=== PATIENT | female | born 1975 | race Caucasian/White ===

== ENCOUNTER → 2018-03-29 15:15 | Outpatient (CLI) | payer MEDICARE, MEDICAID, SELFPAY | PROVIDERS: PCP Internal Medicine; Visit Provider Student in an Organized Health Care Education/Training Program | DX: M17.32 Unilateral post-traumatic osteoarthritis, left knee (principal); M25.562 Pain in left knee; Z96.652 Presence of left artificial knee joint | CPT/HCPCS: 99213 ==

== ENCOUNTER 2018-05-30 08:53 | Outpatient (REF) | payer MEDICARE, MEDICAID, SELFPAY ==
[2018-05-30 20:41] LABS: ALT 26 U/L (12-78); AST 19 U/L (15-37); Albumin 3.6 g/dL (3.4-5.0); Alkaline Phosphatase 125 U/L (46-116); Anion Gap 8.8 mmol/L (3-11); BUN 12 mg/dL (7-18); Bilirubin, Total 0.2 mg/dL (0.2-1.0); CO2 32.2 mmol/L (21.0-32.0); CREATININE 1.03 mg/dL (0.55-1.02); Chloride 98 mmol/L (98-107); Cholesterol 254 mg/dL (50-200); Estimated GFR 58.48 (mL/min/1.73m2); Glucose 105 mg/dL (70-100); HDL Cholesterol 46 mg/dL (40-60); LDL CHOLESTEROL 174 mg/dL (<100); Potassium 4.4 mmol/L (3.5-5.1); Sodium 139 mmol/L (136-145); TSH 2.72 uIU/mL (0.358-3.74); Total Protein 7.2 g/dL (6.4-8.2); Triglyceride 205 mg/dL (30-150)
[2018-05-30 20:53] LABS: Hemoglobin A1C 5.7 % (4.5-6.2)
== END 2018-05-30 09:13 ==
LOC: NCHCN 08:53
PROVIDERS: PCP Internal Medicine; Visit Provider Nurse Practitioner Family
DX: I10 Essential (primary) hypertension (principal); Z79.899 Other long term (current) drug therapy
CPT/HCPCS: 80053; 80061; 83721; 83036; 84443

== ENCOUNTER 2018-09-25 11:55 | Outpatient (REF) | payer MEDICARE, MEDICAID, SELFPAY ==
[2018-09-25 20:34] LABS: ESR 22 MM/HR (0-20)
[2018-09-25 20:51] LABS: Uric Acid 3.7 mg/dL (2.6-6.0)
== END 2018-09-25 12:15 ==
LOC: NCHCN 11:55
PROVIDERS: PCP Internal Medicine; Visit Provider Nurse Practitioner Family
DX: M10.9 Gout, unspecified (principal)
CPT/HCPCS: 85652; 84550

== ENCOUNTER 2019-11-01 13:46 | Outpatient (REF) | payer OTHER, MEDICAID, SELFPAY ==
[2019-11-01 20:04] LABS: ALT 25 U/L (14-59); AST 18 U/L (15-37); Albumin 3.5 g/dL (3.4-5.0); Alkaline Phosphatase 101 U/L (46-116); Anion Gap 9.8 mmol/L (3-11); BUN 10 mg/dL (7-18); Bilirubin, Total 0.2 mg/dL (0.2-1.0); CO2 29.2 mmol/L (21.0-32.0); CREATININE 0.94 mg/dL (0.55-1.02); Calcium 8.5 mg/dL (8.5-10.1); Calculated LDL 110 mg/dL (<100); Chloride 100 mmol/L (98-107); Cholesterol 206 mg/dL (<200); Glucose 119 mg/dL (74-106); HDL Cholesterol 44 mg/dL (40-60); Sodium 139 mmol/L (136-145); TSH (W/Ref FT4) 4.01 uIU/mL (0.36-3.74); Total Protein 6.8 g/dL (6.4-8.2); Triglyceride 263 mg/dL (<150)
[2019-11-01 22:13] LABS: FREE T4 0.82 ng/dL (0.76-1.46)
== END 2019-11-01 14:06 ==
LOC: NCHCN 13:46
PROVIDERS: PCP Internal Medicine; Visit Provider Nurse Practitioner Family
DX: I10 Essential (primary) hypertension (principal); E78.5 Hyperlipidemia, unspecified; R63.5 Abnormal weight gain
CPT/HCPCS: 80053; 80061; 84439; 84443

== ENCOUNTER 2020-12-09 15:14 | Outpatient (REF) | payer OTHER, MEDICAID, SELFPAY ==
[2020-12-10 15:49] LABS: COVID-19 RT-PCR UVMMC Result Negative (Negative)
== END 2020-12-09 15:15 | disposition home or self-care (01) ==
LOC: NCHCN 15:14
PROVIDERS: PCP Internal Medicine; Visit Provider Internal Medicine
DX: Z20.822 Contact with and (suspected) exposure to COVID-19 (principal)
CPT/HCPCS: U0003

== ENCOUNTER 2021-08-24 13:30 | Outpatient (REF) | payer MEDICARE, MEDICAID, SELFPAY ==
[2021-08-24 20:21] LABS: ALT 34 U/L (14-59); AST 20 U/L (15-37); Albumin 3.7 g/dL (3.4-5.0); Alkaline Phosphatase 118 U/L (46-116); Anion Gap 11.2 mmol/L (3-11); BUN 16 mg/dL (7-18); Bilirubin, Total 0.2 mg/dL (0.2-1.0); CO2 25.8 mmol/L (21.0-32.0); CREATININE 0.8 mg/dL (0.55-1.02); Calcium 8.9 mg/dL (8.5-10.1); Calculated LDL 111 mg/dL (<100); Chloride 102 mmol/L (98-107); Cholesterol 211 mg/dL (<200); Glucose 99 mg/dL (74-106); HDL Cholesterol 64 mg/dL (40-60); Potassium 4.4 mmol/L (3.5-5.1); Sodium 139 mmol/L (136-145); Triglyceride 182 mg/dL (<150)
[2021-08-26 18:24] LABS: COVID-19 RT-PCR UVMMC Result Negative (Negative)
== END 2021-08-24 13:31 | disposition home or self-care (01) ==
LOC: NCHCN 13:30
PROVIDERS: Nurse Practitioner Family; PCP Internal Medicine; Visit Provider Pediatrics
DX: E78.5 Hyperlipidemia, unspecified (principal); I10 Essential (primary) hypertension; Z20.822 Contact with and (suspected) exposure to COVID-19
CPT/HCPCS: 80053; 80061; U0003

== ENCOUNTER 2023-10-13 14:36 | Outpatient (CLI) | payer MEDICARE, SELFPAY ==
--- NOTE | 2023-10-13 09:06 | DI.RAD_ITS ---
Exam(s) XR KNEE RT 2V AP,LAT EXAM: XR KNEE RT 2V AP,LAT CLINICAL HISTORY: R knee pain. TECHNIQUE: 2D digital imaging was performed of the right knee. Two views obtained. AP and PA views were obtained. COMPARISON: CR KNEES BILAT MERCHANT VIEW from 02/15/2018 CR XR KNEE COMPLETE MIN 4V RT from 07/09/2023 FINDINGS: This is a limited examination shown. There are mild degenerative changes seen in the right knee with osteophytes seen both medially and laterally. There is mild narrowing of the medial femoral tibial joint space. IMPRESSION: Limited examination which again shows mild arthropathy. DATA REPOSITORY: RADIATION DOSE DELIVERED:
== END 2023-10-13 14:37 | disposition home or self-care (01) ==
LOC: DIORS 14:40
PROVIDERS: PCP Internal Medicine; Referring Provider Internal Medicine
DX: M25.561 Pain in right knee (principal)
CPT/HCPCS: 73560; J1040

== ENCOUNTER → 2023-11-18 00:55 | Outpatient (CLI) | payer MEDICARE, SELFPAY ==
--- NOTE | 2023-11-18 11:20 | DI.MRI_ITS ---
Exam(s) MR LOWER JOINT RT WO EXAM: MR LOWER JOINT RT WO CLINICAL HISTORY: worsening rt knee pain, oa rt knee,m17.11. TECHNIQUE: Multiplanar multisequence MRI was performed. COMPARISON: CR XR KNEE COMPLETE MIN 4V RT from 07/09/2023 CR XR KNEE RT 2V AP,LAT from 10/13/2023 FINDINGS: BONES: There is no fracture or contusion pattern. Patellar enthesophytes. Spurring at the articula r aspect of the patella and femoral condyles. Degenerative tiny cyst near the tibial spines. Small degenerative subchondral cyst in the anterior aspect of the medial tibial plateau. JOINTS: A large joint effusion is present. Articular cartilage: Patellofemoral joint: Cartilage thinning extending down to bone of the mid to lower patella. Periar ticular spurring. Medial femoral tibial joint: Cartilage thinning extending down to bone overlying the central portion of the medial femoral condyle. Lateral femoral tibial joint: Focal area of cartilage thinning and irregularity at the posterior aspect of the lateral femoral condyle. TENDONS: Extensor mechanism: Unremarkable. Medial retinaculum: Unremarkable. Lateral retinaculum: Severe outward bowing related to large joint effusion. No definite tear. Popliteus: Unremarkable. MUSCLES: Unremarkable. MENISCI: The medial meniscus is diminutive and peripherally displaced, consistent with degenerative changes. The lateral meniscus is peripherally displaced. The anterior horn is not well seen. Findings could represent severe degeneration SOFT TISSUES: Anterolateral edema. LIGAMENTS: Anterior Cruciate: Unremarkable. Posterior Cruciate: Unremarkable. Medial Collateral:Unremarkable. Lateral Collateral: Unremarkable. IMPRESSION: Large joint effusion. Degenerative changes with chondromalacia throughout. Degenerative changes of the menisci. The anter ior horn of the lateral meniscus is not visible, likely severely degenerated. DATA REPOSITORY:
== END ==
PROVIDERS: PCP Internal Medicine; Visit Provider Student in an Organized Health Care Education/Training Program
DX: M17.11 Unilateral primary osteoarthritis, right knee (principal); M25.561 Pain in right knee
CPT/HCPCS: 73721

== ENCOUNTER → 2023-11-21 08:56 | Outpatient (BNVA) | payer MEDICARE, SELFPAY | PROVIDERS: PCP Internal Medicine; Referring Provider Internal Medicine; Visit Provider Student in an Organized Health Care Education/Training Program | DX: M17.11 Unilateral primary osteoarthritis, right knee (principal) | CPT/HCPCS: 99214 ==

== ENCOUNTER 2023-12-30 01:44 | Outpatient (CLI) | payer MEDICARE, SELFPAY ==
[2023-12-30 11:26] LABS: HCT 33.5 % (36.0-46.0); HGB 10.9 g/dL (11.2-15.7); MCH 29.9 pg (27.0-33.0); MCHC 32.5 % (32.0-36.0); MCV 92 fL (80-95); MPV 8.5 fL (8.0-11.0); Platelet Count 335 10^3/uL (130-400); RBC 3.65 10^6/uL (3.93-5.22); RDW 12.6 % (11.7-14.6); RDW-SD 42.3 fL; WBC 9.69 10^3/uL (4.4-10.8)
[2023-12-30 11:56] LABS: Anion Gap 9.2 mmol/L (3-11); BUN 17 mg/dL (7-18); CO2 29.8 mmol/L (21.0-32.0); Calcium 8.9 mg/dL (8.5-10.1); Chloride 102 mmol/L (98-107); Estimated GFR 69.49 (mL/min/1.73m2); Glucose 128 mg/dL (74-106); Potassium 3.6 mmol/L (3.5-5.1); Sodium 141 mmol/L (136-145)
== END 2023-12-30 01:45 | disposition home or self-care (01) ==
LOC: LBO 01:45
PROVIDERS: PCP Internal Medicine; Visit Provider Student in an Organized Health Care Education/Training Program
DX: M17.11 Unilateral primary osteoarthritis, right knee (principal); Z01.812 Encounter for preprocedural laboratory examination
CPT/HCPCS: 36415; 80048; 85027

== ENCOUNTER 2023-12-30 12:04 | Outpatient (CLI) | payer MEDICARE, SELFPAY ==
--- NOTE | 2023-12-30 10:15 | DI.RAD_ITS ---
Exam(s) XR STANDING ALIGNMENT EXAM: XR STANDING ALIGNMENT CLINICAL HISTORY: PRE OP R TKA. TECHNIQUE: 2D digital imaging was performed. Four images were obtained. COMPARISON: CR KNEES BILAT MERCHANT VIEW from 02/15/2018 CR LEFT KNEE 3 VIEW COMPLETE from 02/15/2018 CR XR KNEE RT 2V AP,LAT from 10/13/2023 FINDINGS: BONES: The hips are well maintained. There are stable findings of a left total knee replacement. De generative changes are seen in the right knee characterized by joint space narrowing medially. There osteophytes in the lateral femoral tibial joint. The ankles are well maintained.There is no signifi cant leg length discrepancy. SOFT TISSUE: Normal. IMPRESSION: Degenerative changes seen in the right knee. DATA REPOSITORY: RADIATION DOSE DELIVERED:
== END 2023-12-30 12:05 | disposition home or self-care (01) ==
LOC: DIORS 12:04
PROVIDERS: PCP Internal Medicine; Referring Provider Internal Medicine; Visit Provider Physician Assistant
DX: Z01.818 Encounter for other preprocedural examination (principal); M17.11 Unilateral primary osteoarthritis, right knee
CPT/HCPCS: 77073

== ENCOUNTER 2024-01-11 12:24 | Observation (INO) | payer SELFPAY ==
[2024-01-11] VITALS (18 sets, daily range): BP systolic 103–148; BP diastolic 53–83; PULSE 73–92; RESP 12–20; TEMP 36.3–37; O2SAT 91–99; BMI 34.9
[2024-01-11] MEDS: Gabapentin 300 MG CAP PO (10:40)
[2024-01-11] MEDS: Acetaminophen 500 MG TAB 1000 MG PO ×2 (10:41→19:30)
[2024-01-11] MEDS: Lactated Ringers 1,000 ML 80 ML IV (10:54)
--- NOTE | 2024-01-11 11:50 | W.ANESPRE ---
General Info Date of Service Date Performed: 01/11/24 Height: 5 ft 9 in Weight: 107.2 kg Body Mass Index (BMI): 34.9 Surgical Procedure: Operation Date: 01/11/24 13:40 Proposed Procedure Side Surgeon p Knee Total Arthroplasty, Cementless CR Right Zac Duvall MD Meds Allergies and Home Medications Allergies Allergy/AdvReac Type Severity Reaction Status Date / Time aspirin Allergy Severe Other (See Verified 01/11/24 10:37 Comment) acetaminophen Allergy Unknown Other (See Verified 01/11/24 10:37 [From Darvocet-N] Comment) propoxyphene Allergy Unknown Other (See Verified 01/11/24 10:37 [From Darvocet-N] Comment) Thiazides Allergy Unknown Other (See Verified 01/11/24 10:37 Comment) NSAIDS (Non-Steroidal Allergy Anaphylaxsi Verified 01/11/24 10:37 Anti-Inflamma s Sulfa (Sulfonamide AdvReac childhood Verified 01/11/24 10:37 Antibiotics) Home Medication Medication Instructions Recorded albuterol sulfate 90 mcg/actuation 2 puff inhalation Q6H PRN 10/22/21 aerosol inhaler (ProAir HFA) gabapentin 300 mg capsule 300 mg PO DAILY 10/05/23 alprazolam 0.5 mg tablet 0.5 mg PO ONCE PRN anxiety #2 tabs 11/18/23 duloxetine 30 mg capsule,delayed 90 mg PO DAILY 11/21/23 release (Cymbalta) cyclobenzaprine 10 mg tablet 10 mg PO HS PRN muscle spasm #30 12/30/23 tabs methadone 40 mg soluble tablet 71 mg PO DAILY 12/30/23 methylphenidate HCl 20 mg tablet 20 mg PO TID 12/30/23 (Ritalin) prazosin 1 mg capsule 1 mg PO BID 12/30/23 cyclobenzaprine 5 mg tablet 5 mg PO QHS PRN muscle spasm #30 01/07/24 tabs Current Visit Medications: Current Medications Generic Name Dose Route Start Last Admin Trade Name Freq PRN Reason Stop Dose Admin Acetaminophen 1,000 mg 01/11/24 06:00 01/11/24 10:41 Acetaminophen 500 Mg Tab PO 01/11/24 23:59 1,000 mg PREOP RAMESH Administration Gabapentin 300 mg 01/11/24 06:00 01/11/24 10:40 Gabapentin 300 Mg Cap PO 01/11/24 23:59 300 mg PREOP RAMESH Administration Ringer's Solution 1,000 mls @ 80 mls/hr 01/11/24 06:00 01/11/24 10:54 IV 01/11/24 23:59 80 mls/hr INFUSION RAMESH Administration Tranexamic Acid/Sodium Chloride 1,000 mg in 100 mls @ 600 mls/hr 01/11/24 06:00 IVPB 01/11/24 23:59 PREOP RAMESH Cefazolin Sodium/Dextrose 2 gm in 50 mls @ 100 mls/hr 01/11/24 06:00 Ancef Duplex IVPB 02/09/24 23:59 PREOP RAMESH IV Miscellaneous Supplies 1 each 01/11/24 06:00 Iv Access IV 01/11/24 23:59 DIRECTED RAMESH Sodium Chloride 0 ml 01/11/24 06:00 Normal Saline Flush 10 Ml Syr IV 01/11/24 23:59 PRN PRN Sodium Chloride 0 ml 01/11/24 06:00 Normal Saline 10 Ml Vial IJ 01/11/24 23:59 DIRECTED PRN Sterile Water 0 ml 01/11/24 06:00 Water,Injection,Sterile 10 Ml Vial IJ 01/11/24 23:59 DIRECTED PRN PFSH Active Problems Active Problems: Problem Status Onset Code Osteoarthritis of right knee M17.11 Hypertension I10 GERD (gastroesophageal reflux disease) K21.9 Medical History Medical History Attention deficit disorder Heart murmur, systolic Pt. states she's been told she has one in the doctors office but never required any tx for it Xerosis of skin Gout Hyperlipidemia Sinusitis Exposure to COVID-19 virus Tear of meniscus of left knee (04/06/17) Post-traumatic osteoarthritis of left knee (04/06/17) Migraine Depression Substance abuse Tobacco dependence Surgical History Surgical History History of total left knee replacement (TKR) (09/27/17) History of hysterectomy History of cholecystectomy Tobacco Smoking/Tobacco Use Status: Current every day Tobacco Type: cigarettes Alcohol Alcohol Intake: never Substance Use Substance use: Current Sobriety Substance use type: does not use 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 Vital Signs and Lab Results Vital Signs Most Recent Vital Signs in EMR: Most Recent Vital Signs Temp Pulse Resp BP Pulse Ox 36.4 C L 86 16 148/83 H 97 01/11/24 10:24 01/11/24 10:24 01/11/24 10:24 01/11/24 10:01/11/24 10:24 Lab Results Blood Type / Crossmatch: No Data to Display Complete Blood Count: White Blood Count 9.69 10^3/uL (4.4-10.8) 12/30/23 11:18 Red Blood Count 3.65 10^6/uL (3.93-5.22) L 12/30/23 11:18 Hemoglobin 10.9 g/dL (11.2-15.7) L 12/30/23 11:18 Hematocrit 33.5 % (36.0-46.0) L 12/30/23 11:18 Platelet Count 335 10^3/uL (130-400) 12/30/23 11:18 Complete Metabolic Panel: Sodium 141 mmol/L (136-145) 12/30/23 11:18 Potassium 3.6 mmol/L (3.5-5.1) 12/30/23 11:18 Chloride 102 mmol/L (98-107) 12/30/23 11:18 Carbon Dioxide 29.8 mmol/L (21.0-32.0) 12/30/23 11:18 BUN 17 mg/dL (7-18) 12/30/23 11:18 Creatinine 1.0 mg/dL (0.55-1.02) 12/30/23 11:18 Est GFR (CKD-EPI 2020) 69.49 (mL/min/1.73m2) 12/30/23 11:18 Calcium 8.9 mg/dL (8.5-10.1) 12/30/23 11:18 Glucose 128 mg/dL (74-106) H 12/30/23 11:18 Liver Function Panel: No Data to Display Coagulation Panel: No Data to Display Cardiac Panel: No Data to Display Arterial Blood Gas: No Data to Display Venous Blood Gas: No Data to Display Pancreas Panel: No Data to Display Thyroid Panel: No Data to Display Infectious Disease: No Data to Display Blood Cultures: No Data to Display Toxicology Panel: No Data to Display Panel: No Data to Display Anesthesia Assessment and Plan Anesthesia History Personal History: No History of Anesthesia Complications Family History: No Family History of Anesthesia Complications Exercise Tolerance Exercise Tolerance: Metabolic Equivalents>4 Cardiac & Pulmonary Exam Cardiac Exam: Heart Murmur Present (Patient reports benign) Pulmonary Exam: Clear Bilateral Breath Sounds Implantable Cardiac Device Does patient have a Pacemaker or an ICD?: No Airway Exam Known Difficult Airway: No Mallampati Class: 2 Mouth Opening: Normal (> 3cm) Thyromental Distance: Greater than 3 cm Neck Range of Motion: Full ROM Neck Circumference: Normal Teeth Condition: Edentulous ASA Classification ASA Score: ASA 3 Emergency Case?: No NPO Status NPO Status: NPO Clears >2 hours, Solids >8 hours Status Status: Negative HCG Anesthesia Plan Resuscitation Status: Full Code Anesthesia Technique: Spinal Anesthesia Airway Planned: Natural Airway Pain Management: Surgeon and patient request nerve block Monitors Used: Standard Monitors
--- NOTE | 2024-01-11 13:28 | W.ANESNERVE ---
Nerve Block Single Injection Procedure Date and Time Date Performed: 01/11/24 Procedure Start: 12:49 Location Where Procedure Performed Procedure Location: Day Surgery Unit Reason Performed: Postoperative Analgesia Requesting Provider: Zac Duvall Timeout Performed Timeout Performed: Yes Monitoring Used ECG, Blood Pressure, SpO2 and See EMR for corresponding vital signs Sterility Sterility: Hand Hygiene, Surgical Cap, Surgical Mask and Sterile Gloves Sedation Given During Procedure Sedation Given (Indicate Dose Given): Versed IV Dose:: 2mg Patient Mental Status Patient Mental Status: Sedate with meaningful communication Nerve Block 1st Nerve Block: Laterality: Right Block Type: Adductor Canal Ultrasound Image Saved?: Yes Needle / Catheter Used: 100mm SonoPlex II Local Anesthetic Bolus (Indicate Dose Given): Lidocaine used for local infiltration of skin, Injected in 3-5ml increments after negative blood aspiration, Bupivacaine 0.25% Dose:: 10mL and Exparel Dose:: 10mL Additives (Indicate Dose Given): None Ultrasound: Sterile probe cover and gel used Nerve Stimulator: Supplement to Ultrasound use and No twitch or parasthesia noted < 0.5 mA Paresthesia: None Procedure Tolerated: No Complications Procedure Outcome: Successful Performed By: Kamila Morton
[2024-01-11] MEDS: ceFAZolin 2 GM/50 ML BAG IVPB (13:53)
[2024-01-11] MEDS: TRANEXAMIC ACID/SOD. CHL. 1,000 MG/100 ML BAG 600 MG IVPB (14:02)
[2024-01-11] MEDS: fentaNYL 100 MCG/2 ML VIAL IVP ×2 (16:13→16:19)
--- NOTE | 2024-01-11 16:13 | W.PM.OP ---
Date of service: 01/11/24 Time of Service: 16:13 Operative Note Operative Note DATE OF PROCEDURE: 01/11/24 PRE-OP DIAGNOSIS: Right Knee Osteoarthritis POST-OP DIAGNOSIS: same PROCEDURE: Right Total Knee Replacement SURGEON: Zac Duvall GRAIN OILSEED OR PASTURE FARM WORKER: Landon Mcallister ANESTHESIA TYPE: Spinal Refer to Anesthesia Record ESTIMATED BLOOD LOSS: 200 PATHOLOGY: none sent TOURNIQUET TIME: 0 COMPLICATIONS: None Patient was transported to: PACU Patient's condition: stable Implants: 1. Depuy Attune Cementless Cruciate Retaining Femoral Component, Size 8 2. Depuy Attune Cementless Fixed Bearing Tibial Component, Size 6 3. Depuy Attune 8x6 CR/FB Poly 4. Depuy Attune Patellar Component, Size 35 Indications: I have seen Rand in clinic for symptoms of knee arthritis, confirmed with radiographic findings. She has exhausted nonoperative methods and was having significant limitations in daily function and desired better function and less pain. I discussed the technical details of a knee replacement. I explained the risks of the procedure to include, but not limited to, bleeding, infection, pain, stiffness, fracture, damage to nerves and vessels, damage to muscles and tendons, loosening, need for repeat procedure, blood clot and cardiopulmonary demise. Despite these risks, Rand elected to proceed. Findings: There was significant signs of arthritis throughout the knee along with significant inflammatory change and synovitis. Procedure Description: Rand was greeted in the preoperative holding area where the correct side was identified and marked. The consent was reviewed with the patient and signed. The history and physical was updated. All questions were answered. Preoperative medications were administered: Acetaminophen 1000mg, Celebrex 400mg, and Gabapentin 300mg. An adductor canal block was then administered by the anesthesia team in the D[facility]. Rand was taken back to the operating room. A spinal anesthestic was then administered. The patient was placed into the supine position on the operating room table. A nonsterile tourniquet was placed high onto the leg but only used for cementing. Posts were placed for positioning during the procedure. All bony prominences were well padded. Prophylactic antibiotics in the form of Cefazolin were administered. 1g of Tranxemic Acid was given intravenously within 30 minutes of incision. The right leg was then prepped with Chloraprep and draped in a standard fashion with impervious stockinette. A second prep with Chloraprep was performed prior to application of Iodine impregnated skin protection. A timeout to confirm correct identity, side and site, procedure, allergies, anesthesia, and medical concerns was performed. With the knee in some flexion, a midline incision was made overlying the knee. Full thickness skin flaps were raised once the extensor mechanism was encountered. These were raised medially and laterally. Any bleeding was controlled with electrocautery. Once the extensor mechanism was fully exposed, a medial parapatellar arthrotomy was performed in a flexed position. All bleeding from the arthrotomy and the geniculate arteries was coagulated. A medial subperiosteal peel was performed with electrocautery to the midcoronal plane. The fat pad was removed while keeping the patellar tendon protected. The anterior distal femur synovium was removed for later visualization. The ACL and PCL were resected and the anterior horn of the lateral meniscus was transected. The knee was then flexed with the patella everted. Large osteophytes from the tibia were removed. Large osteophytes from the femur were removed. Using a step drill, and based on preoperative templating, the femoral canal was entered. This was done with a step drill without any difficulty. The intramedullary distal femoral cut guide was inserted, set to a 5 degree valgus cut and 9mm cut thickness. The distal femoral cut guide was then held in position and pinned. With the soft tissues protected, the distal cut was performed. This was passed over a few times to ensure a planar cut. I then turned attention to the tibia. The extramedullary guide was placed onto the leg. The distal aspect was slid medial to adjust for position of center of ankle and stay in line with shaft of the tibia. Approximately 3-5 degrees of posterior slope was kept in the proximal cutting guide. The center of the guide was aligned with the PCL. The stylus was used to assess cut thickness. The latral side, most involved side, was set for a 6mm cut, corresponding to 8mm medially. This was then held in position and pinned into place with 2 additional pins and a cross pin for stability. The medial and lateral collateral ligaments were protected and the cut was performed. With this completed, it was assessed and noted to be of appropriate dimensions. The guide was removed. A spacer block was inserted and the knee was brought into extension. The 6mm spacer block provided full extension, without hyperextension and with stability of both the medial and lateral collateral ligaments was assessed. The pins from the femur and the tibia were then removed. The distal femur was then sized. The anterior stylus was placed onto the lateral ridge of the anterior femur. This indicated a size 8 femur. The external rotation of the guide was adjusted to 3 degrees to match the epicondylar axis, perpendicular to Mayes?s line. The 4-in-1 cutting guide was the placed. The posterior medial femur cut was evaluated and appeared of good thickness. The spacer block was inserted underneath the cutting guide and this was moved posteriorly 1.5mm. It was trialed again and stability was confirmed in 90 degrees of flexion. An pollo wing was used to confirm appropriate position of the anterior cut to avoid notching. This cutting guide was ensured to be flush on the cut surface and then pinned into place with headed pins. While protecting the soft tissues, quad tendon, and collateral ligaments, the anterior and posterior cuts were performed with a saw. The central two pins were removed and the posterior and anterior chamfers were cut next. The notch-cutting guide was placed. This was pinned to lateralize the femoral component as much as possible while keeping it flush on the cut surface. This was then pinned into position. A reciprocating saw was used to make the notch cut. A rasp smoothed the cut surfaces. The medial and lateral menisci were removed. A trial femoral component was then inserted, impacted down to the cut surfaces, and the lug holes were drilled. A provisional trial tibial component was placed and the knee was brought through range of motion. There was noted to be excellent extension and flexion. There was no significant instability. The patella was tracking without thumbs. A size 6mm polyethylene component provided the best range of motion and stability with less than 2mm gapping with medial and lateral stress and full extension without significant hyperextension. The tibial cut surface was fully exposed. The tibia was then sized as a 6. The trial was pinned into place, relatively externally rotated. The tibia was prepared with a reamer and a keel punch and lug holes. The knee was then brought into extension and the patella was measured as 21mm. Using the patellar clamp and cut guide, this was resected to a flat surface with at least 13mm of thickness remaining. The size 35 patella fit the best. This was oriented and then clamped into position. The lugs were drilled. The trial components were removed. The final components were opened on the back table. The periosteal and capsular tissues, especially posteriorly, around the knee were then systematically injected with a periarticular cocktail consisting of 246mg of Ropivacaine, 0.5mg of Epinephrine, 0.08mg of Clonidine, and 30mg of Ketorolac, diluted to 100cc. On the back table, with the implants opened, the cement was mixed. One batch of high viscosity cement was prepared with vacuum assistance. After the cement was ready a small amount was placed on the cut surface of the patella and the patellar button was clamped into position and held. While the cement was hardening, the cementless knee components were placed. Starting with the tibial component, the tibia was subluxed anteriorly and the lug holes of the component were lined up. The tibia was then impacted with an impactor and mallet until the tibial component was in contact with the tibia. The final polyethylene component was inserted. Then, the femoral component was inserted. The lug holes were aligned and the component was impacted into position. The knee was irrigated with Surgiphor Betadine solution. This was allowed to sit in the knee for 3 minutes and then it was irrigated out with saline. After the cement had finally cured, approximately 15min, the clamp was removed from the patella and the knee was taken through range of motion. The patella was tracking with a no-thumbs technique. The capsule was then reapproximated with a No. 1 Vicryl at multiple locations. The capsule was finally closed with a No. 2 Stratafix, barbed suture. The second dosing of 1g TXA was started. Deep tissues were then reapproximated with 0 Vicryl and 2-0 Vicryl. The skin was closed with a running 3-0 Monocryl in a subcuticular fashion. This was reinforced with skin glue. A Mepilex silver dressing was applied along with a [id number] JACKIE wrap. A CryoCuff was applied. Rand was transferred to the hospital bed without difficulty an suffering no apparent complication. Rand has a good prognosis. Physical therapy will start today and without restrictions, weight-bearing as tolerated. Aspirin 81mg BID will be used for DVT prophylaxis.
--- NOTE | 2024-01-11 16:51 | W.ANESPOSTOP ---
Postoperative Evaluation Date, Time and Location Date Performed: 01/11/24 Time Performed: 16:55 Patient Location: Med/Surg Vital Signs Most Recent Imported Vital Signs: Most Recent Vital Signs Temp Pulse Resp BP Pulse Ox 36.7 C 78 19 127/58 L 98 01/11/24 16:25 01/11/24 16:25 01/11/24 16:25 01/11/24 16:25 01/11/24 16:25 Pain Score Most Recent Pain Score: Most Recent Pain Score Pain Level 8 01/11/24 16:25 Assessment Mental Status: Awake (Alert & Oriented to Patient Baseline) Airway and Respiratory Function: Patent airway with normal (patient baseline) respiratory exam Cardiovascular Function: Hemodynamically Stable Hydration Status: Adequately Hydrated Nausea & Vomiting: No Nausea or Vomiting Pain: Pain is Moderate or Severe Postoperative Pain Management: Pain being addressed with medication and Ongoing pain, patient will be managed as an inpatient Peripheral Nerve Block: Regional nerve block not resolved at time of post operative discharge
[2024-01-11] MEDS: HYDROmorphone 2 MG/ML SYR 1 MG IVP ×2 (17:16→23:56)
[2024-01-11] MEDS: ceFAZolin 1 GM/50 ML BAG IVPB ×2 (17:17→21:45)
[2024-01-11] MEDS: Normal Saline Flush 10 ML SYR ×2 (18:13)
[2024-01-11] MEDS: oxyCODONE 5 MG TAB PO ×2 (19:29→22:42)
[2024-01-11] MEDS: Tranexamic Acid 650 MG TAB 1300 MG PO (19:31)
[2024-01-11] MEDS: Methylphenidate 10 MG TAB 20 MG PO (19:32)
[2024-01-11] MEDS: Prazosin 1 MG CAP PO (19:32)
[2024-01-11] MEDS: Aspirin E.C. 81 MG TABEC PO (19:32)
[2024-01-11] MEDS: Docusate Sodium 100 MG CAP PO (19:32)
[2024-01-11] MEDS: Cyclobenzaprine 10 MG TAB PO (19:32)
[2024-01-11] MEDS: Nicotine 14 MG/24 HR PATCH TD (21:38)
[2024-01-11] MEDS: diazePAM 5 MG TAB PO (22:43)
[2024-01-12] VITALS (7 sets, daily range): BP systolic 95–160; BP diastolic 66–82; PULSE 72–87; RESP 16–18; TEMP 36–37.1; O2SAT 94–99
[2024-01-12] MEDS: oxyCODONE 5 MG TAB PO ×4 (02:02→17:03)
[2024-01-12] MEDS: diazePAM 5 MG TAB PO ×2 (02:04→09:50)
[2024-01-12] MEDS: ceFAZolin 1 GM/50 ML BAG IVPB (05:46)
[2024-01-12] MEDS: Dexamethasone 4 MG TAB PO ×2 (07:42→09:42)
[2024-01-12] MEDS: Acetaminophen 500 MG TAB 1000 MG PO ×3 (07:42→20:51)
[2024-01-12] MEDS: DULoxetine 30 MG CAP 90 MG PO (07:43)
[2024-01-12] MEDS: Prazosin 1 MG CAP PO ×2 (07:43→20:51)
[2024-01-12] MEDS: Pantoprazole 40 MG TABCR PO (07:43)
[2024-01-12] MEDS: Methylphenidate 10 MG TAB 20 MG PO ×3 (07:44→20:51)
[2024-01-12] MEDS: Aspirin E.C. 81 MG TABEC PO ×2 (07:45→20:51)
[2024-01-12] MEDS: Gabapentin 300 MG CAP PO (07:45)
[2024-01-12] MEDS: Nicotine 14 MG/24 HR PATCH TD (07:46)
[2024-01-12] MEDS: Normal Saline Flush 10 ML SYR IV (07:56)
[2024-01-12] MEDS: HYDROmorphone 2 MG/ML SYR 1 MG IVP (07:56)
[2024-01-12] MEDS: Methadone Liquid 10 MG/ML 71 MG PO (08:08)
--- NOTE | 2024-01-12 08:33 | PT.INIE ---
PT Notes Visit Reasons: OA R Knee Physical Therapy Inpatient Initial Evaluation Date: 01/12/2024 Referring Doctor: YONNY Miller PT Orders: PT CONSULT: S/P Ortho Surgery Precautions: Fall. Standard. WBAT on the R LE with AD. Patient Profile/Admitting Diagnosis: Rand is a 48-year-old female with degenerative joint disease of the right knee and status post right total knee arthroplasty on postoperative day 0. PMHX: Medical History Attention deficit disorder Heart murmur, systolic Xerosis of skin Gout Hyperlipidemia Sinusitis Exposure to COVID-19 virus Tear of meniscus of left knee (04/06/17) Post-traumatic osteoarthritis of left knee (04/06/17) Migraine Depression Substance abuse Tobacco dependence Surgical History History of total left knee replacement (TKR) (09/27/17) History of hysterectomy History of cholecystectomy Social History/Home Situation: Lives with nirmal? in a private home with 4 steps to enter without rails. Ambulatory with use of bilateral axillary crutches indoors and outdoors. Was able to work with restrictions. Equipment Owned/DME: Bilateral axillary crutches Subjective: Rand is unable to finsh breakfast due to pain. She is tearful and complained of throbbing pain in her right thigh and the back of her knee. Nurse Frantz already medicated patient for pain earlier and is aware of patient's pain level. reported that she does not feel safe going home today. felt a little better after some manual therapy by PT. Agreeable to walking and moving about with encouragement. Added that since July she has been using her bilateral axillary crutches for all her walking tasks to off-load the R knee. Fell about 5 times since then due to R knee instability. Objective: General Observation: Seated on chair in pain and tearful. Cryocuff on floor and moved up on table for optimal effect. JACKIE wraps to R LE. Mental Status: Alert and oriented as to person, place, time, and purpose. Able to pay attention, focus, and respond appropriately. Pain: 8-9/10 in R thigh and knee Vital Signs: Closely monitored by nursing staff ROM: Right Lower Extremity: Hip flexion allows up to 90 degrees. Hip abduction WFL. Knee flexion -30 to 90 degrees. Knee extension -30 degrees ankle dorsiflexion WFL. Ankle plantarflexion WFL. Left Lower Extremity: Hip flexion WFL. Hip abduction WFL. Knee flexion 10 degrees to 100. Knee extension -10 degrees ankle dorsiflexion WFL. Ankle plantarflexion WFL. Strength: Right Lower Extremity: Hip flexors 4/5. Hip abductors 4/5. Knee flexors 3-/5. Knee extensors 3-/5. Ankle dorsiflexors 4/5. Ankle plantarflexors 4/5. Left Lower Extremity:Hip flexors 4-/5. Hip abductors 4-/5. Knee flexors 3-/5. Knee extensors 3-/5. Ankle dorsiflexors 4-/5. Ankle plantarflexors 4-/5. Sensation: Intact as to pain and light pressure in bilateral lower extremities Bed Mobility/Transfers: Minimal cueing provided for use of B hands as needed for support, movement sequence, AD management, and posture to reduce fall risk and minimize pain report Sit to stand with contact-guard assist with FWW Stand to sit with contact-guard assist with FWW Bed to toilet seat with contact-guard assist with FWW Toilet seat to bedside recliner with contact-guard assist with FWW Gait: Facilitated safe and correct performance of level surface ambulation covering a distance of 75 feet +75 feet +75 feet using front wheeled walker with antalgic gait observed requiring minimal verbal cueing for appropriate weight distribution onto the legs and assistive device as well as safe limb advancement and posture to reduce fall risk and minimize pain report. Patient verbalized feeling considerably stable on the right knee at each step unlike before. Step to gait pattern. Contact-guard assist provided. Balance: Static Sitting: Normal Dynamic Sitting: Good Static Standing: Fair Dynamic Standing: Fair Special Tests: Mobility Limitations Standardized Measure [facility] AM-PAC 6 clicks Basic Mobility Inpatient Short Form: Raw Score: 18 CMS Score: 47% deficit Informed Consent/Education: Patient was instructed in purpose of PT consult and plan of care. Agreeable to proceed with established PT POC to achieve personal goals. Trained patient with correct performance of exercises below to maximize motor control, joint flexibility, soft tissue extensibility of the R knee musculature: Access Code: [email or web address] URL: [email or web address] Date: 01/12/2024 Prepared by: Anastasiia Holder Exercises - Supine Quad Set - 1 x daily - 7 x weekly - 1 sets - 10 reps - 5 hold - Supine Heel Slide - 1 x daily - 7 x weekly - 1 sets - 10 reps - 5 hold - Supine Ankle Pumps - 1 x daily - 7 x weekly - 1 sets - 10 reps - 5 hold - Small Range Straight Leg Raise - 1 x daily - 7 x weekly - 1 sets - 10 reps - 5 hold DEFERRED for this session - Seated March - 1 x daily - 7 x weekly - 1 sets - 10 reps - 5 hold DEFERRED for this session Assessment: Pain level limiting ability of patient to safely participte in functional mobility training. Nurse Bonny has premedicated patient earlier before PT session and has helped with minimizing pain report during session. Patient verbalized not feeling safe to go home today. Patient presents with clinical signs and symptoms consistent with current/admitting diagnoses that have resulted to mobility limitations, gait instability, generalized weakness, and overall ADL decline as demonstrated by the following impairment level findings: 1. Decreased strength to R hip and knee major muscle groups 2. Impaired sitting/standing balance 3. Impaired activity tolerance 4. Limitation of joint range of motion in R knee 5. Pain in R thigh and back of leg at 8-9/10 Impairments are contributing to the following functional limitations: 1. Decline in bed mobility skills 2. Decline in transfer skills 3. Difficulty with ambulation without assistive device 4. Increased completion time for mobility ADL performance 5. Increased risk for falls 6. Difficulty with managing steps alone safely Patient is assessed as a 98637 moderate complexity based on the following: History: 48-year-old female with past medical history as indicated above Examination: Demonstrable impairment in strength, balance, and mobility level with underlying impairments and functional limitations as exhibited above as well as deficit score of 47% utilizing the [facility] Mobility Inpatient Short Form Presentation: Evolving Decision Makin moderate complexity Goals: Goals X1 week 1. Supine-Sit independent 2. Sit-Supine independent 3. Sit-Stand independent 4. Stand-Sit independent with FWW 5. Bed-Chair independent with FWW 6. Chair-Bed independent with FWW 7. Independent gait on level surface with use of FWW for at least 300 feet without report of pain nor dyspnea 8. Independent stair negotiation while holding onto no rails for at least 4 steps without report of pain nor dyspnea 9. Independent with home exercise program 10. Good static and dynamic standing balance/tolerance Plan of Care/Treatment Plan: 1-2x/day, 7 days/week x 1 week. Plan of care has been reviewed with the FRONT LOADER RESIDENTIAL DRIVER providing the service under Physical Therapy direction. Initiate Physical Therapy intervention for pain management as needed, strengthening, bed mobility, transfers, gait, stairs, balance training, and use of assistive device. DISCHARGE RECOMMENDATIONS: Home with no services [X] Home with services. Patient will benefit from home health PT services in order to progress mobility level using least restrictive assistive ambulatory device, assess home safety, identify additional equipment needs, and establish a functional maintenance program that will increase ability of patient to remain at home. [] Home with outpatient PT [] [] SNF for continued rehabilitation [] [] Senior Care Care [] [] SNF versus LTC based on ability to participate and progress [] TREATMENT CODE/TIME: 19424 x 20 minutes for 1 unit, 30443 x 15 minutes for 1 unit, 43730 x 11 minutes (8:33-9:19). Thank you for the opportunity to participate in the care of this patient. Anastasiia Holder PT, DPT, CLT [facility] [place], [place]
--- NOTE | 2024-01-12 10:56 | PDOC.CMIN ---
Date of service: 01/12/24 Time of Service: 10:56 Care Management Initial Assmt Initial Assessment Reason for Hospitalization: OA Right knee, RTK Functional Status/Living Situation Patient Presentation: Rand has an apartment in the basement of her son and JUANITO's home in [place]. Also living in the home is her fiance, 5 grandchildren and 9 dogs. Rand is awake and sitting in a reclining chair , legs elevated when CM met with her. She is forthcoming with information and pleasant in interaction. Per pt, every time she is about to fall asleep her knee pain flairs up so she is very tired. She is hoping to get her pain level before discharging home. Town of Residence: [place] Resides with: Child (lives with her son, JUANITO and their 5 kids) and Spouse (Cameron?) Significant Other/Family: [facility] Employment Status: Employed ([employer] in [place]) Instrumental Activities of Daily Living (ADLs): Independent Medications Medication Management: No Issues/Barriers identified Physical Functioning/Mobility Assistive Device: Uses crutches Advance Directives Advance Directives: Do you have an Advance Directive: N 03/17/17 15:35 AD On File at [facility]: N 03/25/14 15:26 Date Asked 01/11/24 01/10/24 08:41 AD Date Reviewed COLST On File at [facility] COLST Date Scanned Code Status Resuscitation Status Full Code Portal Pt does not currently have a portal and education provided: No Insurance Coverage/Financial Issues Insurance: AARP/Un. Health MCR replacement ACO Member: No Financial Issues: Medicare. Medicaid Care Team Visit Care Team Role Provider Type Nghia Ayala Primary Care Provider NON-[facility] STAFF PHYSICIAN [facility] Other Providers OTHER Zac Duvall MD Admit Provider [facility] STAFF PHYSICIAN Attending Provider Discharge Potential Discharge Needs: PT Evaluation (Recommends HH PT (O/E [facility])), Surgical F/U Appt (Dr. Duvall 01/26/24) and Other ([facility] in [place]t: [facility]. Will need last dose letter. ) Anticipated Barriers to Discharge: None Identified Patient/Family Education Needs: Review discharge instructions, discuss Ask Me Three Transportation: Private vehicle (Fianc?) Plan: Rand will discharge home when ready per . She will follow up with Dr. Duvall, her PCP and plan of care as prescribed. PFSH All Active Problems Osteoarthritis of right knee (Acute) DEPO MEDROL: 10/13/2023 Hypertension (Chronic) GERD (gastroesophageal reflux disease) (Chronic) Medical History Attention deficit disorder Heart murmur, systolic Pt. states she's been told she has one in the doctors office but never required any tx for it Xerosis of skin Gout Hyperlipidemia Sinusitis Exposure to COVID-19 virus Tear of meniscus of left knee (04/06/17) Post-traumatic osteoarthritis of left knee (04/06/17) Migraine Depression Substance abuse Tobacco dependence Surgical History History of total left knee replacement (TKR) (09/27/17) History of hysterectomy History of cholecystectomy Social History Smoking/Tobacco Use Status: Current every day Tobacco Type: cigarettes Smoking risk assessment performed?: Yes Alcohol Intake: never Drug use: Current Sobriety Substance use type: does not use 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 Housing: apartment Do you feel safe at home: Yes Do you feel safe in your relationship?: Yes SDOH(Care Management) Screening Will the Patient Participate in the Screening?: Yes Do you worry about having a steady place to live?: no Problems where you live: no known problems In the past 12 months, have you had to go without electric, gas, oil or water in your home?: no Have you or anyone in your house had to go without enough food to eat?: no Has lack of transportation kept you from medical appointments or from doing things needed for daily living?: yes Has anyone in your support network made you feel unsafe for any reason?: no Health Related Social Needs Health related social needs: transportation insecurity(Z59.82)
--- NOTE | 2024-01-12 11:41 | PHA.REVIEW2 ---
Pharmacy Admission Review Admission Clinical Review Admission Pharmacy Review: aspirin Allergy (Severe, Verified 01/11/24 10:37) Other (See Comment) acetaminophen [From Darvocet-N] Allergy (Unknown, Verified 01/11/24 10:37) Other (See Comment) propoxyphene [From Darvocet-N] Allergy (Unknown, Verified 01/11/24 10:37) Other (See Comment) Thiazides Allergy (Unknown, Verified 01/11/24 10:37) Other (See Comment) NSAIDS (Non-Steroidal Anti-Inflamma Allergy (Verified 01/11/24 10:37) Anaphylaxsis Sulfa (Sulfonamide Antibiotics) Adverse Reaction (Verified 01/11/24 10:37) childhood Resuscitation Status Full Code Height 5 ft 9 in Weight 107.2 kg Comments Comments/Follow Ups: POD #1 Pharmacy Admission Review Renal Dosing Medications needing adjustments: Reviewed (CrCl 89.68 ml/min) List of meds needing interventions: Current medications are okay Anticoagulation DVT Prophylaxis: Reviewed (SCDs/TEDs) Opiate Usage Evaluate Pain Scale/Pains Meds: Reviewed (Daily methadone, PRN hydromorphone and PRN oxycodone) Scheduled Bowel Reg ordered if on Opiates?: No (PRN Miralax and docusate) Relevant Labs Electrolytes, C-Reactive P, ESR: Reviewed (No new labs for today) Cardiac Review BP, HR, EF%: Reviewed (HR and BP WNL) QTc Review QTc: Reviewed (No EKG on file) IV to PO Switch IV Medications: Reviewed (Hydromorphone) Home Meds Home Med List reviewed: Reviewed Relevent Home Meds Not ordered & why?: Albuterol (PRN) and alprazolam (prescription for 2 tablets to take prior to a study) Current Meds Current Medication Order Review: Intervened Comments: Confirmed methadone dose with [facility] in [place]. Takes 71mg daily, last dosed 01/01 and was given 13 take home doses Added IV order set Comments Comments/Follow Ups: POD #1
--- NOTE | 2024-01-12 11:42 | CHAPLAIN ---
Rand had a knee replacement yesterday. She said the pain is keeping her awake and she didn't get much sleep last night. She is hoping to put on cartoons and nap this morning. Rand said she's a little worried about going home where there are children, dogs and people in and out and she's hoping she stay in one spot and not be jostled around.
[2024-01-12] MEDS: Normal Saline Flush 10 ML SYR (12:07)
--- NOTE | 2024-01-12 14:10 | IN_ITS ---
PT Notes Visit Reasons: OA R Knee Physical Therapy Inpatient Treatment Note Date: 01/12/2024 Precautions: Fall. Standard. WBAT on the R LE with AD. Subjective: Feeling a bit better and more agreeable to complete this afternoon's session. Happy and felt more secure to have had follow up visit from orthopod. Verbalized feeling much better after PT session this morning that allowed her time to doze off. Added that at home she usually gets her methadone at 5 AM daily so she is able to manage her day without too much difficulty. Objective: General Observation: HOME PERFORMANCE CONSULTANT was helping patient get into bathroom when PT came and volunteered to take over for the afternoon session. JACKIE wraps removed by orthopod around lunch time per patient report. Mental Status: Alert and oriented as to person, place, time, and purpose. Able to pay attention, focus, and respond appropriately. Pain: 4-5/10 in R thigh and knee Vital Signs: Closely monitored by nursing staff Bed Mobility/Transfers: Minimal cueing provided for use of B hands as needed for support, movement sequence, AD management, and posture to reduce fall risk and minimize pain report Sit to stand with stand by assist with FWW Stand to sit with stand by assist with FWW Bed to toilet seat with stand by assist with FWW Toilet seat to bedside recliner with stand by assist with FWW Gait: Facilitated safe and correct performance of level surface ambulation covering a distance of 250 feet using front wheeled walker, antalgic gait still apparent. Minimal verbal cueing for appropriate weight distribution onto the legs and assistive device as well as safe limb advancement and posture to reduce fall risk and minimize pain report. Step to gait pattern. Contact-guard assist provided. No LOB. No SOB. dneied headache. chest pain, andlightheadedness. Balance: Static Sitting: Normal Dynamic Sitting: Good Static Standing: Fair Dynamic Standing: Fair Assessment: Pain level decreased compared to this morning. Patient gaining confidence with walking performance as pain tolerance is improving. Required less cueing. Efficiency of movement improved with readjustment of FWW to a lower height (one notch lower). Will continue to require services to progress mobility level safely. Plan of Care/Treatment Plan: 1-2x/day, 7 days/week x 1 week. Plan of care has been reviewed with the CHICKEN VACCINATOR providing the service under Physical Therapy direction. Continue with Physical Therapy intervention for pain management as needed, strengthening, bed mobility, transfers, gait, stairs, balance training, and use of assistive device. DISCHARGE RECOMMENDATIONS: [] Home with no services [X] Home with services. Patient will benefit from home health PT services in order to progress mobility level using least restrictive assistive ambulatory device, assess home safety, identify additional equipment needs, and establish a functional maintenance program that will increase ability of patient to remain at home. [] Home with outpatient PT [] [] SNF for continued rehabilitation [] [] Detention Care [] [] SNF versus LTC based on ability to participate and progress [] TREATMENT CODE/TIME: 77640 x 23 minutes for 1 unit 913:45-14:07)
[2024-01-12] MEDS: Methocarbamol 750 MG TAB PO ×2 (16:19→20:51)
[2024-01-12] MEDS: Docusate Sodium 100 MG CAP PO ×2 (17:04→20:53)
--- NOTE | 2024-01-12 20:17 | W.PM.PROGNOT ---
Date of Service Date of service: 01/12/24 Time of Service: 12:50 Assessment and Plan Assessment and plan (1) Osteoarthritis of right knee: Status: Acute Assessment and plan: Continue weightbearing as tolerated. Work with physical therapy. She does have a large hemarthrosis which is quite tense. However, it seems to have settled down. It is compressible. She is able to move the knee and ambulate therefore I would not do anything. However, if things worsen that I could consider aspiration of the arthrosis but I would prefer not to stick a needle in the fresh knee. This will be reabsorbed with time. I will also add methocarbamol to her regimen to help out with spasms. We have Valium for anxiety and pain as well as the oxycodone. We will continue to hold with this regimen throughout the day today and reevaluate tomorrow and less there is acute worsening of the pain in her right knee from the effusion. (2) Substance abuse: Assessment and plan: On methadone for substance use disorder. This makes pain management challenging. We do have a multimodal regimen. She has been followed with continuous pulse oximetry and has been able to tolerate all the medications without difficulty. Subjective Subjective Interval history since last seen: Rand reports having significant pain last night and this morning. She describes his pain as being different than what the oxycodone seems to treat. She feels that some of the sharper pain is taking care of by the oxycodone with there is been an ongoing intense pain which seems to happen intermittently which is somewhat spastic in nature. He describes as being around the anterior thigh, anterior knee, posterior calf and posterior knee. She has been able to mobilize with nursing and with physical therapy. She still feels that she is able to move the knee. She denies fevers or chills. She has reported minimal sleep. She has had no difficulty with the combination of medications. She has tolerated the aspirin without difficulty. Exam Narrative Exam Narrative: Sitting up in the chair. No acute distress. Appears uncomfortable. Alert and orient x 3. Evaluation of the right knee shows a clean dry and intact dressing. The Refugio wrap is removed. There is a large and tense effusion about the right knee. It is still compressible although causes pain. No drainage on the dressing. No change to the skin. She is able to actively move the knee from 30 to 80 degrees. She is able to actively extend as well. Sensation intact to light touch over the deep and superficial peroneal nerve and tibial nerve. Objective Last Vital Signs Temp 37.1 C 01/12/24 15:39 Pulse 76 01/12/24 15:39 Resp 16 01/12/24 15:39 BP 123/74 01/12/24 15:39 Pulse Ox 94 01/12/24 15:39 Time Spent with Patient Time Spent with Patient: 25-34 minutes Time was spent: preparing to see the patient(eg.review tests), obtaining and/or reviewing separately otained hiistory, ordering medications,tests, procedures, referring, communicating with other health rn transitional care, indepentently interpreting results and counseling the patient
[2024-01-12] MEDS: Cyclobenzaprine 10 MG TAB PO (20:53)
[2024-01-13] VITALS (7 sets, daily range): BP systolic 113–141; BP diastolic 77–89; PULSE 78–92; RESP 14–18; TEMP 36.2–37; O2SAT 94–98
[2024-01-13] MEDS: oxyCODONE 5 MG TAB PO ×4 (01:52→19:16)
[2024-01-13] MEDS: Dexamethasone 4 MG TAB 8 MG PO (07:50)
[2024-01-13] MEDS: Prazosin 1 MG CAP PO ×2 (07:51→19:15)
[2024-01-13] MEDS: Acetaminophen 500 MG TAB 1000 MG PO ×3 (07:52→19:16)
[2024-01-13] MEDS: Methocarbamol 750 MG TAB PO ×4 (07:53→19:15)
[2024-01-13] MEDS: Gabapentin 300 MG CAP PO (07:53)
[2024-01-13] MEDS: DULoxetine 30 MG CAP 90 MG PO (07:54)
[2024-01-13] MEDS: Methylphenidate 10 MG TAB 20 MG PO ×3 (07:55→17:15)
[2024-01-13] MEDS: Pantoprazole 40 MG TABCR PO (07:56)
[2024-01-13] MEDS: Aspirin E.C. 81 MG TABEC PO ×2 (07:56→19:17)
[2024-01-13] MEDS: Nicotine 14 MG/24 HR PATCH TD (07:57)
[2024-01-13] MEDS: Methadone Liquid 10 MG/ML 71 MG PO (08:55)
--- NOTE | 2024-01-13 09:04 | W.PM.PROGNOT ---
Date of Service Date of service: 01/13/24 Time of Service: 09:04 Assessment and Plan Assessment and plan (1) Osteoarthritis of right knee: Status: Acute Assessment and plan: Rand continues to make appropriate progress. She has been able to ambulate and move the knee although with notable pain. We are treating her pain with multiple modalities. I continue to monitor her for any respiratory depression for which she has not had any. However, if this is concerning given the amount of medications she is on, however she is tolerating them well. She was should continue with weightbearing as tolerated with assistive device. Continue with PT and with ambulation with nursing. She is tolerating the aspirin for DVT prophylaxis. She has had some bleeding into the right knee but this seems to be stabilized. At this point I would like to observe for another 24 hours just to make sure that the bleeding in the knee is controlled and her medication regimen is still tolerated and controlling her pain. The increase in pain in the morning is likely related to nighttime motions as well as lack of medication treatment during the night. (2) Substance abuse: Assessment and plan: History of substance abuse disorder, currently on methadone. This is complicating her postoperative pain control as expected. However, she seems to be stabilized on the current regimen. We will continue to monitor her respiratory depression before discharging to home. (3) Tobacco dependence: Assessment and plan: Nicotine supplementation. Discussed smoking cessation. Subjective Subjective Interval history since last seen: Rand reports to be doing well. Unfortunately she is having worsening pain once again this morning. She felt that yesterday afternoon evening went very well. She is able to ambulate with nursing and physical therapy and felt that the swelling had come down about the knee. Unfortunately, through the night, while she was able to sleep a little bit, she has had significant increase in pain this morning. She has taken her medications and hopefully this will help alleviate that. She denies any other acute changes. No chest pain or shortness of breath. No fevers or chills. No cough. She has been watched closely due to the multiple medications that she is currently taking to control her pain symptoms. Exam Narrative Exam Narrative: Sitting up in the chair. No acute distress. Alert and x 3. Evaluation of the right knee shows an effusion about the right knee although slightly less tense than yesterday. The dressing is clean dry and intact. Range of motion is approximately 15 to 90 degrees. She has intact ankle dorsiflexion, plantarflexion, great toe extension and flexion. Sensation intact to light touch of the deep and superficial peroneal nerve and tibial nerve. Objective Last Vital Signs Temp 36.9 C 01/13/24 08:02 Pulse 78 01/13/24 08:02 Resp 16 01/13/24 08:02 BP 125/77 01/13/24 08:02 Pulse Ox 97 01/13/24 08:02 Time Spent with Patient Time Spent with Patient: 25-34 minutes Time was spent: preparing to see the patient(eg.review tests), obtaining and/or reviewing separately otained hiistory, ordering medications,tests, procedures and counseling the patient
--- NOTE | 2024-01-13 09:33 | PT.INTREAT ---
PT Notes Visit Reasons: OA R Knee Date: 01/13/24 PRECAUTIONS: Fall. Standard. WBAT on the R LE with AD. SUBJECTIVE: Pt in recliner when approached for therapy this morning, pt OBJECTIVE: ? PAIN: 4/10 VITALS: Monitored by nursing? Therapeutic Activities 84169: Direct one-on-one instruction in dynamic activities to improve functional performance. ?? BED MOBILITY/TRANSFERS? Rolling L/R: Indpendent Supine-sit: ? independent? Sit-supine: ? independent? Sit-stand: ? SBA? Stand-sit: ?? SBA? Bed-Chair:? ? SBA? Chair-bed: SBA Provided skilled cues and instruction on performance and technique throughout. Gait Training 19016: Direct one-on-one instruction and skilled instruction in: Employing an assistive device Modified weight-bearing status Movement sequencing Turning and movement with proper form Provided verbal cues for equipment management and technique Provided instruction in gait pattern Patient education regarding pacing and breathing techniques to maximize activity tolerance? GAIT? Assistive Device: ??FWW ? Weight bearing: WBAT Assist: ? ?SBA ? Distance:?? ? 350', 100'? Deviation: ? ?Antalgic gait, gait asymmetry, stoop forward posture ? STAIRS:? Stairwell, using 1handrail on the right, 3steps up/down, 4step up/down, 12step up/down step to gait pattern? ASSESSMENT:?tolerated activity well, reports the pain has been significantly less. stayed in recliner post session. PLAN: Continue with balance training, global strengthening and general conditioning for improved safety, mobility and activity tolerance until pt is ready for DC. TREATMENT CODE/TIME: 41665s4, 84824m0 40mins (8:50-9:30am)
--- NOTE | 2024-01-13 14:48 | CMPROGNOTE_ITS ---
Date of service: 01/13/24 Time of Service: 14:48 Care Management Progress Note Progress Note Text Progress Note Text: S/O: Rand is sitting in her recliner when CM met with her. She is awake, pleasant and easy to engage in conversation. She is icing her knee and reports her pain regimen today seems to be working although her pain is intensified at this moment since she just got done with PT. She is interested in getting a hand held shower head after she is discharged and is able to order one online through her insurance benefits. She is planning on discharging home tomorrow. New O/E [facility]NA PT is recommended. A: 48 year old female admitted to [facility] on 01/11/24 for RTK replacement. Discharge Potential Discharge Needs: Surgical F/U Appt Anticipated Barriers to Discharge: None Identified Patient/Family Education Needs: Review discharge instructions, discuss Ask Me Three Transportation: Private vehicle Plan: Rand will discharge home via private vehicle with family. New [facility] PT services are anticipated. Rand will need a last dose letter and a letter for work. Rand will follow up with community providers and her discharge plan of care as instructed. SDOH(Care Management) Screening Will the Patient Participate in the Screening?: Yes Do you worry about having a steady place to live?: no Problems where you live: no known problems In the past 12 months, have you had to go without electric, gas, oil or water in your home?: no Have you or anyone in your house had to go without enough food to eat?: no Has lack of transportation kept you from medical appointments or from doing things needed for daily living?: yes Has anyone in your support network made you feel unsafe for any reason?: no Health Related Social Needs Health related social needs: transportation insecurity(Z59.82) Anticipated HH Services Anticipated HH Services at Discharge [facility]NA (PT) Services Needed.
--- NOTE | 2024-01-13 14:58 | PTTR_ITS ---
PT Notes Visit Reasons: OA R Knee Physical Therapy Inpatient Treatment Note Date: 01/13/24 PRECAUTIONS: Fall. Standard. WBAT on the R LE with AD. SUBJECTIVE: Appeared in pain when PT came in but was willing to participate. OBJECTIVE: ? PAIN: 6-7/10 in the back of R knee and distal R medial thigh. Swelling in R medial knee and thigh ading to pain report. VITALS: Monitored by nursing? BED MOBILITY/TRANSFERS: Minimal cueing provided for use of B hands as needed for support, movement sequence, AD management, and posture to reduce fall risk and minimize pain report ? Sit-stand: ? independent with FWW ? Stand-sit: ??independent with FWW ? Bed-Chair:? independent with FWW ? Chair-bed: independent with FWW ? THERA EX: Trained patient with correct performance of exercises below to maximize motor control, joint flexibility, soft tissue extensibility of the R knee musculature: Access Code: [email or web address] URL: [email or web address] Date: 01/13/2024 Prepared by: Anastasiia Holder Exercises - Supine Quad Set - 1 x daily - 7 x weekly - 1 sets - 10 reps - 5 hold - Supine Heel Slide - 1 x daily - 7 x weekly - 1 sets - 10 reps - 5 hold - Supine Ankle Pumps - 1 x daily - 7 x weekly - 1 sets - 10 reps - 5 hold - Small Range Straight Leg Raise - 1 x daily - 7 x weekly - 1 sets - 10 reps - 5 hold - Seated March - 1 x daily - 7 x weekly - 1 sets - 10 reps - 5 hold ? GAIT? Assistive Device: ??FWW ? Weight bearing: WBAT on R LE Assist: ? ?supervision? Distance:?? ? 300 feet? Deviation: ? ?Antalgic gait, gait asymmetry, tendency to flex trunk to favor the R quad? Cueing: Continues to favor R LE, instructed patient to walk closer to walker to encourage trunk extension and adequate WB through the R LE? ASSESSMENT:? Confidence level with as well as tolerance for walking now significantly improved. R SLR limited with extensor lag apparent but no buckling seen during ambulation activity. Gait remains antalgic. PLAN: Continue with functional mobility training and HEP education prior to tomorrow's discharge. TREATMENT CODE/TIME: 22040 x 25 minutes for 2 units, 61136 x 15 minutes for 1 unit (14:58-15:38).
[2024-01-13] MEDS: Docusate Sodium 100 MG CAP PO (15:54)
[2024-01-13] MEDS: Cyclobenzaprine 10 MG TAB PO (19:15)
[2024-01-13] MEDS: diazePAM 5 MG TAB PO (19:15)
[2024-01-13] MEDS: Normal Saline Flush 10 ML SYR IVP (19:17)
[2024-01-13] MEDS: Prochlorperazine 10 MG/2 ML VIAL 5 MG IVP (19:17)
[2024-01-13] MEDS: Polyethylene Glycol 3350 17 GM PACKET PO (19:18)
[2024-01-14 03:19] VITALS: BP 135/85; PULSE 71; RESP 18; TEMP 36.6; O2SAT 96
--- NOTE | 2024-01-14 06:22 | W.PM.DS.N ---
Date of service: 01/14/24 Time of Service: 09:50 DS: Diagnosis Discharge Diagnosis (1) Osteoarthritis of right knee: Status: Acute (2) Substance abuse: (3) Tobacco dependence: Discharge Plan Disposition Patient Disposition: Home Condition: Improving Discharge Details Reason For Visit: OA R Knee Admit Date/Time: 01/11/24 12:24 Admit Provider: Zac Duvall Attending Provider: Zac Duvall Primary Care Provider: Nghia Ayala [facility] Hospital Course Hospital Course: Patient was admitted to the medical/surgical floor following the procedure. The surgery was tolerated well without any notable medical, surgical, or anesthetic complications. Mobilization began postoperatively. She was voiding spontaneously. Vitals were stable. Pain management was challenging given her history of substance abuse disorder but we were able to obtain a regimen utilizing multiple modalities which controlled pain. Physical therapy worked with the patient and was cleared for discharge home. No acute medical issues. Pain was controlled on oral regimen. Home Meds and New Rx's Prescriptions: New methocarbamol 750 mg Tablet 750 mg PO QID Qty: 40 1RF pantoprazole 40 mg Tablet,Delayed Release (Dr/Ec) 40 mg PO DAILY@0730 Qty: 30 0RF acetaminophen 500 mg tablet 1,000 mg PO Q8H PRN (Reason: pain) Qty: 90 3RF aspirin 81 mg tablet,delayed release (DR/EC) 81 mg PO BID Qty: 60 0RF oxycodone 20 mg tablet 20 mg PO Q4H PRNQty: 30 0RF diazepam 5 mg tablet 5 mg PO BID MDD 2 tabs PRN (Reason: anxiety and pain) Qty: 14 0RF Continued methadone 40 mg tablet,soluble 71 mg PO DAILY methylphenidate HCl [Ritalin] 20 mg tablet 20 mg PO TID prazosin 1 mg capsule 1 mg PO BID cyclobenzaprine 10 mg tablet 10 mg PO HS PRN (Reason: muscle spasm) Qty: 30 0RF Rx Instructions: take 1 tablet by mouth at bedtime as needed for pain albuterol sulfate [ProAir HFA] 90 mcg/actuation HFA aerosol inhaler 2 puff inhalation Q6H PRN gabapentin 300 mg capsule 300 mg PO DAILY duloxetine [Cymbalta] 30 mg capsule,delayed release(DR/EC) 90 mg PO DAILY cyclobenzaprine 5 mg tablet 5 mg PO QHS PRN (Reason: muscle spasm) Qty: 30 0RF Discontinued alprazolam 0.5 mg tablet 0.5 mg PO ONCE PRN (Reason: anxiety) Qty: 2 0RF Rx Instructions: sig: one tab 30 min prior to study, may take a second dose at the time of exam if still anxious. Discharge Instructions Additional Instructions: Total Knee Discharge Instructions Activity: The most important activity is to walk and to work on gentle motion (both flexion and extension). You should try to take short walks a few times a day. It is important that when resting you work on keeping the knee straight. Avoid putting a pillow behind the knee as this will encourage flexion. Work on range of motion exercises as provided by Physical Therapy. - Start outpatient physical therapy within 2 weeks. - You should wear the JULIO hose on both legs for 2 weeks. You may remove these at night. You may also use any compression sock in place of the JULIO hose. - Utilize [employer] to review exercises, see videos on exercises and obtain basic information pertaining to your surgery and your recovery. Dressing: Keep the surgical dressing in place for at least one week. After the first week it may be removed and replaced with light gauze and tape or nothing. The wound and dressing may get wet after 3 days but avoid soaking the dressing or otherwise it will need to be changed. Many people prefer covering the dressing with cling wrap (saran wrap) to minimize it from getting soaked. If it gets wet, just pat dry. If it starts to peel off then it will need to be changed. Medications: - You should take Tylenol and Methadone as your primary pain control medications. You will continue your typical dose of Methadone as instructed by EZIO. - You have been prescribed a breakthrough pain medication, Oxycodone, for severe pain, take as needed as prescribed. - You also have Diazepam (Valium) to be used for anxiety and pain/spasms up to twice a day. Do NOT take this in combination (at the same time) as your Oxycodone. Limit how much of this you take. - You have also been prescribed a stomach acid reduction agent Pantoprozole to help reduce stomach acid and reflux. - You will be taking Aspirin 81mg twice a day for DVT prevention unless instructed otherwise. - If you have constipation you should take Colace or Miralax (both [id number]). It takes most people 3-4 days to have a bowel movement. Follow-up: 2 weeks If you have any acute concerns or questions, please do not hesitate to contact the office at [phone]. You may contact Dr. Duvall with any questions after hours through the hospital at [phone] or on his cell phone at [phone]. Referrals: Zac Duvall MD [ [facility] STAFF PHYSICIAN] - Activity:: Activity as Tolerated Equipment/Supplies:: Walker Diet:: As Tolerated Discharge Orders Discharge Orders: Discharge Order (Routine); Ordered 01/14/24 Ordered By: Zac Duvall DS: Summary Time Spent with Patient providing and/or coordinating discharge services: Greater than 30 minutes Status at Discharge Functional status at discharge: uses cane/walker Overall status at discharge: patient is progressing back to baseline Mental Status: mental status grossly normal Speech and Movement: speech and movement normal Mood: congruent mood Affect: normal affect Quality:SDOH Health Related Social Needs: Health related social needs transpo insecurity Exam Narrative Exam Narrative: Sitting up in the chair. NAD. AAOx3. RLE Dressing c/d/i. Able to actively flex and extend, 15-85. Notable effusion but compressible. Limited straight leg raise but able to do so with a lag and appropriate patella elevation with quad contraction. SILT DP/SP/Tib. Psych Mental Status: mental status grossly normal Speech and Movement: speech and movement normal Mood: congruent mood Affect: normal affect DS: Data Vitals/I&O Vitals and I&O: Vital Signs Temperature 36.6 C 01/14/24 03:19 Temperature Source Skin 01/14/24 03:19 Pulse 71 01/14/24 03:19 Pulse Rhythm Regular 01/13/24 19:15 Respiratory Rate 18 01/14/24 03:19 Respiratory Effort Normal, Non-Labored 01/13/24 19:15 Respiratory Depth Normal 01/13/24 19:15 Respiratory Pattern Bradypnea 01/13/24 19:15 Blood Pressure 135/85 01/14/24 03:19 Blood Pressure Mean 86 01/11/24 13:30 Blood Pressure Position Supine 01/11/24 13:30 Pulse Oximetry 96 01/14/24 03:19 Respiratory End-tidal CO2 42 01/11/24 16:25 Oxygen Delivery Method Room Air 01/14/24 03:19 Oxygen Flow Rate 0 01/14/24 03:19 Pain Level 3 01/13/24 23:05 Comment states pain is tolerable and declining since being given pain medications 01/13/24 19:45 Intake & Output 01/13/24 01/13/24 01/14/24 11:59 23:59 11:59 Intake Total 240 / 240 Balance 240 / 240 Intake: Oral 240 / 240 Other: Urine Color Pale Yellow Urine Appearance Clear Clear Urine Odor Normal Comment patient uses bathroom independently Stool Size Small Stool Characteristics Formed Emesis Description None Voiding Methods Toilet Toilet Toilet PFSH All Active Problems Osteoarthritis of right knee (Acute) s/p R TKA (01/11/24) Hypertension (Chronic) GERD (gastroesophageal reflux disease) (Chronic) Medical History Attention deficit disorder Heart murmur, systolic Pt. states she's been told she has one in the doctors office but never required any tx for it Xerosis of skin Gout Hyperlipidemia Sinusitis Exposure to COVID-19 virus Tear of meniscus of left knee (04/06/17) Post-traumatic osteoarthritis of left knee (04/06/17) Migraine Depression Substance abuse Tobacco dependence Surgical History History of total left knee replacement (TKR) (09/27/17) History of hysterectomy History of cholecystectomy Social History Smoking/Tobacco Use Status: Current every day Tobacco Type: cigarettes Smoking risk assessment performed?: Yes Alcohol Intake: never Drug use: Current Sobriety Substance use type: does not use 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 Housing: apartment Do you feel safe at home: Yes Do you feel safe in your relationship?: Yes Time Spent with Patient Time Spent with Patient: <45 minutes Time was spent: preparing to see the patient(eg.review tests), ordering medications,tests, procedures and counseling the patient
[2024-01-14] MEDS: diazePAM 5 MG TAB PO ×2 (06:30→15:01)
[2024-01-14] MEDS: oxyCODONE 5 MG TAB PO ×2 (06:30→14:13)
[2024-01-14 07:28] VITALS: BP 149/82; PULSE 74; RESP 17; TEMP 36.3; O2SAT 96
[2024-01-14] MEDS: Pantoprazole 40 MG TABCR PO (07:38)
[2024-01-14] MEDS: Aspirin E.C. 81 MG TABEC PO (07:38)
[2024-01-14] MEDS: Methylphenidate 10 MG TAB 20 MG PO ×3 (07:38→15:01)
[2024-01-14] MEDS: Acetaminophen 500 MG TAB 1000 MG PO ×2 (07:39→14:14)
[2024-01-14] MEDS: Prazosin 1 MG CAP PO (07:39)
[2024-01-14] MEDS: Gabapentin 300 MG CAP PO (07:39)
[2024-01-14] MEDS: Methocarbamol 750 MG TAB PO ×3 (07:39→15:01)
[2024-01-14] MEDS: DULoxetine 30 MG CAP 90 MG PO (07:39)
--- NOTE | 2024-01-14 07:44 | PTTR_ITS ---
PT Notes Visit Reasons: OA R Knee Date: 01/14/24 PRECAUTIONS: Fall. Standard. WBAT on the R LE with AD. SUBJECTIVE: Pt in recliner when approached for therapy this morning, pt reports she slept a little early last night so was awake earlier today and is feeling achy, requested for pain meds and is in the process of waiting for meds to take effect. agrees to participating with therapy after a couple of minutes. OBJECTIVE: ? PAIN: 11/29 VITALS: Monitored by nursing? Therapeutic Activities 32706: Direct one-on-one instruction in dynamic activities to improve functional performance. ?? BED MOBILITY/TRANSFERS? Rolling L/R: Indpendent Supine-sit: ? independent? Sit-supine: ? independent? Sit-stand: ? SBA? Stand-sit: ?? SBA? Bed-Chair:? ? SBA? Chair-bed: SBA Provided skilled cues and instruction on performance and technique throughout. Gait Training 66309: Direct one-on-one instruction and skilled instruction in: Employing an assistive device Modified weight-bearing status Movement sequencing Turning and movement with proper form Provided verbal cues for equipment management and technique Provided instruction in gait pattern Patient education regarding pacing and breathing techniques to maximize activity tolerance? GAIT? Assistive Device: ??FWW ? Weight bearing: WBAT Assist: ? ?SBA ? Distance:?? ? 350', 100'? Deviation: ? ?Antalgic gait, gait asymmetry, stoop forward posture ? ? Therapeutic Exercises 34784: Direct one-on-one instruction in therapeutic exercises to develop strength, endurance, range of motion and flexibility. Exercises? Provided skilled instruction in proper exercise performance Provided skilled manual cues to facilitate proper muscle recruitment and/or form: Access Code: [email or web address] URL: [email or web address] Date: 01/14/2024 Prepared by: Bertrand Holder Exercises - Gluteal Sets - 1 x daily - 7 x weekly - 1 sets - 10 reps - 5 hold - Supine Heel Slide - 1 x daily - 7 x weekly - 1 sets - 10 reps - 5 hold - Supine Ankle Pumps - 1 x daily - 7 x weekly - 1 sets - 10 reps - 5 hold - Seated March - 1 x daily - 7 x weekly - 1 sets - 10 reps - 5 hold - Seated Long Arc Quad - 1 x daily - 7 x weekly - 1 sets - 10 reps - 5 hold ? ASSESSMENT:?tolerated activity well, reports pain felt decreased post therapy, looking forward to going home this afternoon. PLAN: Continue with balance training, global strengthening and general conditioning for improved safety, mobility and activity tolerance until pt is ready for DC. TREATMENT CODE/TIME: 31435p2, 03206f1 25mins (7:45-8:10am)
[2024-01-14] MEDS: Methadone Liquid 10 MG/ML 71 MG PO (08:23)
--- NOTE | 2024-01-14 12:43 | PDOC.CMDIS ---
Date of service: 01/14/24 Time of Service: 12:44 LACE Index Scoring Tool Questions: Length of Stay (in days): 3 Was the patient admitted via the E.D.?: Yes E.D. Visits: 0 Answers: Total Score: 6 Risk of Readmission: Low Risk Care Management Discharge Plan Reason for Hospitalization: OA R Knee Discharge Plan: Rand will discharge home via private vehicle with family. CM completed last dose letter for [facility] follow up as well as a return to work letter at Rand's request. Rand will follow up with community providers and her discharge plan of care as instructed. Patient/Family Education Needs: Review discharge instructions, discuss Ask Me Three. SDOH Health Related Social Needs: Health related social needs transpo insecurity Health related social needs: transportation insecurity(Z59.82)
== END 2024-01-14 17:00 | disposition home or self-care (01) ==
LOC: MS 17:08
PROVIDERS: Admitting Provider Student in an Organized Health Care Education/Training Program; PCP Internal Medicine; Visit Provider Student in an Organized Health Care Education/Training Program
PROC: (CPT 27447; principal; 2024-01-11 13:30)
DX: M17.11 Unilateral primary osteoarthritis, right knee (principal); F19.10 Other psychoactive substance abuse, uncomplicated; F17.210 Nicotine dependence, cigarettes, uncomplicated; I10 Essential (primary) hypertension; K21.9 Gastro-esophageal reflux disease without esophagitis; E78.5 Hyperlipidemia, unspecified; M10.9 Gout, unspecified; F32.A Depression, unspecified; G43.909 Migraine, unspecified, not intractable, without status migrainosus; Z96.652 Presence of left artificial knee joint; F11.90 Opioid use, unspecified, uncomplicated
CPT/HCPCS: 27447; C1777; 76942; 96365; 96366; 96375; 96376; 97110; 97116; 97530; C1776; C9290; G0378; J0665; J0690; J0780; J1170; J2001; J2250; J2371; J2405; J2704; J3010; J8540

== ENCOUNTER 2024-01-23 11:22 | Outpatient (CLI) | payer MEDICAID, SELFPAY ==
--- NOTE | 2024-01-23 11:00 | DI.RAD_ITS ---
Exam(s) XR KNEE RT 1V XR STANDING ALIGNMENT EXAM: XR STANDING ALIGNMENT CLINICAL HISTORY: F/U RIGHT TKR. TECHNIQUE: 2D digital imaging was performed. Five images were obtained. COMPARISON: CR XR KNEE RT 2V AP,LAT from 10/13/2023 CR XR STANDING ALIGNMENT from 12/30/2023 FINDINGS: BONES: The hips are well maintained. The patient has a stable left total knee replacement. The eris ent has a right total knee replacement which appears in good position. There is persistent mild soft tissue swelling around the right knee. There are enthesophytes at the anterior patella. The orthop edic hardware appears in good position. The ankles are well maintained.The right lower extremity is approximately 5 cm shorter than the left lower extremity. SOFT TISSUE: Normal. IMPRESSION: 1. Status post recent right total knee replacement. 2. There is a leg length discrepancy with the left lower extremity almost 5 cm longer than the right lower extremity. DATA REPOSITORY: RADIATION DOSE DELIVERED:
== END 2024-01-23 11:23 | disposition home or self-care (01) ==
LOC: DIORS 11:22
PROVIDERS: PCP Internal Medicine; Referring Provider Internal Medicine; Visit Provider Student in an Organized Health Care Education/Training Program
DX: Z96.651 Presence of right artificial knee joint (principal); Z47.1 Aftercare following joint replacement surgery
CPT/HCPCS: 73560; 77073

== ENCOUNTER 2024-01-27 06:03 | Day surgery (SDC) | payer MEDICAID, SELFPAY ==
[2024-01-27] VITALS (38 sets, daily range): BP systolic 92–154; BP diastolic 57–97; PULSE 75–93; RESP 10–23; TEMP 36.1–36.9; O2SAT 91–99; BMI 36.1
[2024-01-27] MEDS: Gabapentin 300 MG CAP PO (06:49)
[2024-01-27] MEDS: Acetaminophen 500 MG TAB 1000 MG PO (06:50)
[2024-01-27] MEDS: Lactated Ringers 1,000 ML 80 ML IV (07:00)
--- NOTE | 2024-01-27 07:01 | W.ANESPRE ---
General Info Date of Service Date Performed: 01/27/24 Height: 5 ft 9 in Weight: 110.9 kg Body Mass Index (BMI): 36.1 Surgical Procedure: Operation Date: 01/27/24 07:40 Proposed Procedure Side Surgeon p Evacuation of TKA Hematoma Right Zac Duvall MD Meds Allergies and Home Medications Allergies Allergy/AdvReac Type Severity Reaction Status Date / Time aspirin Allergy Severe Other (See Verified 01/27/24 06:49 Comment) acetaminophen Allergy Unknown Other (See Verified 01/27/24 06:49 [From Darvocet-N] Comment) propoxyphene Allergy Unknown Other (See Verified 01/27/24 06:49 [From Darvocet-N] Comment) Thiazides Allergy Unknown Other (See Verified 01/27/24 06:49 Comment) NSAIDS (Non-Steroidal Allergy Anaphylaxsi Verified 01/27/24 06:49 Anti-Inflamma s Sulfa (Sulfonamide AdvReac childhood Verified 01/27/24 06:49 Antibiotics) Home Medication Medication Instructions Recorded albuterol sulfate 90 mcg/actuation 2 puff inhalation Q6H PRN 10/22/21 aerosol inhaler (ProAir HFA) gabapentin 300 mg capsule 300 mg PO DAILY 10/05/23 duloxetine 30 mg capsule,delayed 90 mg PO DAILY 11/21/23 release (Cymbalta) cyclobenzaprine 10 mg tablet 10 mg PO HS PRN muscle spasm #30 12/30/23 tabs methadone 40 mg soluble tablet 71 mg PO DAILY 12/30/23 methylphenidate HCl 20 mg tablet 20 mg PO TID 12/30/23 (Ritalin) prazosin 1 mg capsule 1 mg PO BID 12/30/23 cyclobenzaprine 5 mg tablet 5 mg PO QHS PRN muscle spasm #30 01/07/24 tabs acetaminophen 500 mg tablet 1,000 mg (2 x 500 mg) PO Q8H PRN 01/14/24 pain #90 tabs aspirin 81 mg tablet,delayed 81 mg PO BID #60 tabs 01/14/24 release methocarbamol 750 mg tablet 750 mg PO QID #40 tabs 01/14/24 pantoprazole 40 mg tablet,delayed 40 mg PO DAILY@0730 #30 tabs 01/14/24 release diazepam 5 mg tablet 5 mg PO BID PRN anxiety and pain 01/22/24 #14 tabs oxycodone 20 mg tablet 20 mg PO Q4H PRN pain #42 tabs 01/24/24 Current Visit Medications: Current Medications Generic Name Dose Route Start Last Admin Trade Name Jayme PRN Reason Stop Dose Admin Acetaminophen 1,000 mg 01/27/24 06:00 01/27/24 06:50 Acetaminophen 500 Mg Tab PO 01/27/24 23:59 1,000 mg PREOP RAMESH Administration Gabapentin 300 mg 01/27/24 06:00 01/27/24 06:49 Gabapentin 300 Mg Cap PO 01/27/24 23:59 300 mg PREOP RAMESH Administration Ringer's Solution 1,000 mls @ 80 mls/hr 01/27/24 06:00 IV 01/27/24 23:59 INFUSION RAMESH Cefazolin Sodium/Dextrose 2 gm in 50 mls @ 100 mls/hr 01/27/24 06:00 Ancef Duplex IVPB 01/27/24 23:59 PREOP RAMESH Tranexamic Acid/Sodium Chloride 1,000 mg in 100 mls @ 600 mls/hr 01/27/24 06:00 IVPB 01/27/24 23:59 PREOP RAMESH IV Miscellaneous Supplies 1 each 01/27/24 06:00 Iv Access IV 01/27/24 23:59 DIRECTED RAMESH Sodium Chloride 0 ml 01/27/24 06:00 Normal Saline Flush 10 Ml Syr IV 01/27/24 23:59 PRN PRN Sodium Chloride 0 ml 01/27/24 06:00 Normal Saline 10 Ml Vial IJ 01/27/24 23:59 DIRECTED PRN Sterile Water 0 ml 01/27/24 06:00 Water,Injection,Sterile 10 Ml Vial IJ 01/27/24 23:59 DIRECTED PRN PFSH Active Problems Active Problems: Problem Status Onset Code Hematoma of right knee region S80.01XA Status post total right knee replacement Z96.651 Hypertension I10 GERD (gastroesophageal reflux disease) K21.9 Medical History Medical History Attention deficit disorder Heart murmur, systolic Pt. states she's been told she has one in the doctors office but never required any tx for it Xerosis of skin Gout Hyperlipidemia Sinusitis Exposure to COVID-19 virus Tear of meniscus of left knee (04/06/17) Post-traumatic osteoarthritis of left knee (04/06/17) Migraine Depression Substance abuse Tobacco dependence Surgical History Surgical History History of total left knee replacement (TKR) (09/27/17) History of hysterectomy History of cholecystectomy Tobacco Smoking/Tobacco Use Status: Current every day Tobacco Type: cigarettes Alcohol Alcohol Intake: never Substance Use Substance use: Current Sobriety Substance use type: does not use 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 01/27/24: smoked 2 cigarettes prior to DSU 01/27/24: pt reports pain in back, difficulty lying flat, sleeps in a recliner. Vital Signs and Lab Results Vital Signs Most Recent Vital Signs in EMR: Most Recent Vital Signs Temp Pulse Resp BP Pulse Ox 36.8 C 92 H 16 127/59 L 96 01/27/24 06:27 01/27/24 06:27 01/27/24 06:27 01/27/24 06:27 01/27/24 06:27 Lab Results Blood Type / Crossmatch: No Data to Display Complete Blood Count: White Blood Count 9.69 10^3/uL (4.4-10.8) 12/30/23 11:18 Red Blood Count 3.65 10^6/uL (3.93-5.22) L 12/30/23 11:18 Hemoglobin 10.9 g/dL (11.2-15.7) L 12/30/23 11:18 Hematocrit 33.5 % (36.0-46.0) L 12/30/23 11:18 Platelet Count 335 10^3/uL (130-400) 12/30/23 11:18 Complete Metabolic Panel: Sodium 141 mmol/L (136-145) 12/30/23 11:18 Potassium 3.6 mmol/L (3.5-5.1) 12/30/23 11:18 Chloride 102 mmol/L (98-107) 12/30/23 11:18 Carbon Dioxide 29.8 mmol/L (21.0-32.0) 12/30/23 11:18 BUN 17 mg/dL (7-18) 12/30/23 11:18 Creatinine 1.0 mg/dL (0.55-1.02) 12/30/23 11:18 Est GFR (CKD-EPI 2020) 69.49 (mL/min/1.73m2) 12/30/23 11:18 Calcium 8.9 mg/dL (8.5-10.1) 12/30/23 11:18 Glucose 128 mg/dL (74-106) H 12/30/23 11:18 Liver Function Panel: No Data to Display Coagulation Panel: No Data to Display Cardiac Panel: No Data to Display Arterial Blood Gas: No Data to Display Venous Blood Gas: No Data to Display Pancreas Panel: No Data to Display Thyroid Panel: No Data to Display Infectious Disease: No Data to Display Blood Cultures: No Data to Display Toxicology Panel: No Data to Display Panel: No Data to Display Anesthesia Assessment and Plan Anesthesia History Personal History: No History of Anesthesia Complications Family History: No Family History of Anesthesia Complications Exercise Tolerance Exercise Tolerance: Metabolic Equivalents>4 Pertinent Negatives Pertinent Negatives: No Symptoms of GERD, No Major Cardiovascular Symptoms or Complaints, No Major Pulmonary Symptoms or Complaints and No History of CVA/TIA Cardiac & Pulmonary Exam Cardiac Exam: Normal S1/S2 Heart Sounds Pulmonary Exam: Clear Bilateral Breath Sounds Cardiac and Pulmonary Comment:: Smoker Implantable Cardiac Device Does patient have a Pacemaker or an ICD?: No Airway Exam Known Difficult Airway: No Mallampati Class: 2 Mouth Opening: Normal (> 3cm) Thyromental Distance: Greater than 3 cm Neck Range of Motion: Full ROM Neck Circumference: Thick Teeth Condition: Edentulous ASA Classification ASA Score: ASA 3 Emergency Case?: No NPO Status NPO Status: NPO Clears >2 hours, Solids >8 hours Status Status: History of Hysterectomy Anesthesia Plan Resuscitation Status: Full Code Anesthesia Technique: Spinal Anesthesia Airway Planned: Natural Airway Monitors Used: Standard Monitors Preoperative Comments:: Right adductor canal block prn post op
--- NOTE | 2024-01-27 07:31 | W.PREOPHP ---
Assessment and Plan Assessment and plan (1) Hematoma of right knee region: Status: Acute Assessment and plan: Rand is a 49-year-old female who is status post right knee replacement who unfortunately continues have some swelling about the right knee which seems to be bleeding in nature. I tried to aspirate this in the office but has reaccumulated and is causing significant limitations in her recovery. Therefore, this point I recommend we proceed with hematoma evacuation. We will then look for any active bleeding. I will start with the superficial compartment and then proceed to within the knee through the arthrotomy if necessary or if there seems to be an arthrotomy rupture or dehiscence. I will plan for an aggressive irrigation and debridement and try to identify any active bleeding source. This should not interrupt her recovery program and should have anything make it better. After reviewing all this, she would like to proceed. I did discuss the risk which include continued bleeding, need for repeat procedures, infection, pain, stiffness. Despite these risk, she elects to proceed. History of Present Illness History of Present Illness Chief Complaint: Right knee swelling Narrative: Rand is a 49-year-old female who is just over 2 weeks out from her right knee replacement. Unfortunate she has continued to have difficulties with swelling about the right knee. This was presumed to be bleeding within and without the knee. Aspiration of blood from the in the office was performed, with about 30 to 40 cc of blood-tinged synovial fluid removed. However, she has had persistent swelling with any activity. This is because notable pain and restriction of range of motion. Despite following strict guidelines on motion she has had reaccumulation of the swelling within the knee. Therefore, I recommended we proceed with hematoma evacuation. She denies fevers or chills. She denies numbness or tingling. She does have cramps which have been quite painful and keeping her up at night. She denies any significant exacerbation of pain not controlled with her current regimen of oxycodone given her known difficulties with pain management. Review of Systems All systems reviewed & are unremarkable except as noted in HPI and below PFSH All Active Problems Hematoma of right knee region (Acute) Status post total right knee replacement (Acute) Hypertension (Chronic) GERD (gastroesophageal reflux disease) (Chronic) Medical History Attention deficit disorder Heart murmur, systolic Pt. states she's been told she has one in the doctors office but never required any tx for it Xerosis of skin Gout Hyperlipidemia Sinusitis Exposure to COVID-19 virus Tear of meniscus of left knee (04/06/17) Post-traumatic osteoarthritis of left knee (04/06/17) Migraine Depression Substance abuse Tobacco dependence Surgical History History of total left knee replacement (TKR) (09/27/17) History of hysterectomy History of cholecystectomy Social History Smoking/Tobacco Use Status: Current every day Tobacco Type: cigarettes Smoking risk assessment performed?: Yes Alcohol Intake: never Drug use: Current Sobriety Substance use type: does not use 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 01/27/24: smoked 2 cigarettes prior to DSU 01/27/24: pt reports pain in back, difficulty lying flat, sleeps in a recliner. Housing: apartment Do you feel safe in your relationship?: Yes Meds Allergies and Home Medications Allergies Allergy/AdvReac Type Severity Reaction Status Date / Time aspirin Allergy Severe Other (See Verified 01/27/24 06:49 Comment) acetaminophen Allergy Unknown Other (See Verified 01/27/24 06:49 [From Darvocet-N] Comment) propoxyphene Allergy Unknown Other (See Verified 01/27/24 06:49 [From Darvocet-N] Comment) Thiazides Allergy Unknown Other (See Verified 01/27/24 06:49 Comment) NSAIDS (Non-Steroidal Allergy Anaphylaxsi Verified 01/27/24 06:49 Anti-Inflamma s Sulfa (Sulfonamide AdvReac childhood Verified 01/27/24 06:49 Antibiotics) Home Medications Medication Instructions Recorded Confirmed Type albuterol sulfate 90 mcg/actuation 2 puff inhalation Q6H PRN 10/22/21 01/27/24 History aerosol inhaler (ProAir HFA) gabapentin 300 mg capsule 300 mg PO DAILY 10/05/23 01/27/24 History duloxetine 30 mg capsule,delayed 90 mg PO DAILY 11/21/23 01/27/24 History release (Cymbalta) cyclobenzaprine 10 mg tablet 10 mg PO HS PRN muscle spasm #30 12/30/23 01/27/24 Rx tabs methadone 40 mg soluble tablet 71 mg PO DAILY 12/30/23 01/27/24 History methylphenidate HCl 20 mg tablet 20 mg PO TID 12/30/23 01/27/24 History (Ritalin) prazosin 1 mg capsule 1 mg PO BID 12/30/23 01/27/24 History cyclobenzaprine 5 mg tablet 5 mg PO QHS PRN muscle spasm #30 01/07/24 01/27/24 Rx tabs acetaminophen 500 mg tablet 1,000 mg (2 x 500 mg) PO Q8H PRN 01/14/24 01/27/24 Rx pain #90 tabs aspirin 81 mg tablet,delayed 81 mg PO BID #60 tabs 01/14/24 01/27/24 Rx release methocarbamol 750 mg tablet 750 mg PO QID #40 tabs 01/14/24 01/27/24 Rx pantoprazole 40 mg tablet,delayed 40 mg PO DAILY@0730 #30 tabs 01/14/24 01/27/24 Rx release diazepam 5 mg tablet 5 mg PO BID PRN anxiety and pain 01/22/24 01/27/24 Rx #14 tabs oxycodone 20 mg tablet 20 mg PO Q4H PRN pain #42 tabs 01/24/24 01/27/24 Rx Exam Narrative Exam Narrative: Rand is sitting up in the hospital stretcher. No acute distress. Alert and orient x 3. Somewhat uncomfortable. Evaluation of the right lower extremity shows significant swelling. There is a glossiness and increased turgor to the skin. However, she is able to initiate some motion of the knee for about 25 to 65 degrees. She reports pain beyond that. The wound is well-approximated and healed. No signs of infection. Heart rate and rhythm are regular. Chest is clear to auscultation bilaterally. Results Last Vital Signs Temp 36.8 C 01/27/24 06:27 Pulse 92 H 01/27/24 06:27 Resp 16 01/27/24 06:27 BP 127/59 L 01/27/24 06:27 Pulse Ox 96 01/27/24 06:27
[2024-01-27] MEDS: ceFAZolin 2 GM/50 ML BAG IVPB (07:34)
[2024-01-27] MEDS: TRANEXAMIC ACID/SOD. CHL. 1,000 MG/100 ML BAG 600 MG IVPB (07:45)
[2024-01-27] MEDS: Tranexamic Acid 1,000 MG/10 ML VIAL 1000 MG (08:32)
--- NOTE | 2024-01-27 09:09 | W.PM.DSUDISC ---
Date of service: 01/27/24 Time of Service: 09:09 Discharge Plan Disposition Patient Disposition: Home Discharge Details Attending Provider: Zac Duvall Primary Care Provider: Nghia Ayala Home Meds and New Rx's Prescriptions: New cefadroxil 500 mg capsule 500 mg PO BID Qty: 14 0RF tranexamic acid 650 mg tablet 650 mg PO Q12H Qty: 10 0RF dexamethasone 4 mg tablet 4 mg PO DAILY Qty: 2 0RF Rx Instructions: Starting Post-Operative Day #1 (Day after surgery) Continued methadone 40 mg tablet,soluble 71 mg PO DAILY methylphenidate HCl [Ritalin] 20 mg tablet 20 mg PO TID prazosin 1 mg capsule 1 mg PO BID cyclobenzaprine 10 mg tablet 10 mg PO HS PRN (Reason: muscle spasm) Qty: 30 0RF Rx Instructions: take 1 tablet by mouth at bedtime as needed for pain albuterol sulfate [ProAir HFA] 90 mcg/actuation HFA aerosol inhaler 2 puff inhalation Q6H PRN gabapentin 300 mg capsule 300 mg PO DAILY duloxetine [Cymbalta] 30 mg capsule,delayed release(DR/EC) 90 mg PO DAILY cyclobenzaprine 5 mg tablet 5 mg PO QHS PRN (Reason: muscle spasm) Qty: 30 0RF oxycodone 20 mg tablet 20 mg PO Q4H MDD 6 tabs PRN (Reason: pain) Qty: 42 0RF pantoprazole 40 mg Tablet,Delayed Release (Dr/Ec) 40 mg PO DAILY@0730 Qty: 30 0RF acetaminophen 500 mg tablet 1,000 mg PO Q8H PRN (Reason: pain) Qty: 90 3RF aspirin 81 mg tablet,delayed release (DR/EC) 81 mg PO BID Qty: 60 0RF methocarbamol 750 mg Tablet 750 mg PO QID Qty: 40 1RF diazepam 5 mg tablet 5 mg PO BID MDD 2 tabs PRN (Reason: anxiety and pain) Qty: 14 0RF Discharge Instructions Additional Instructions: Knee Discharge Instructions Activity: For the first 2-3 days, I want you to rest. You may move and ambulate gently. After that, you may increase your activity. The most important activity is to walk and to work on gentle motion (both flexion and extension). You should try to take short walks a few times a day. It is important that when resting you work on keeping the knee straight. Avoid putting a pillow behind the knee as this will encourage flexion. Work on range of motion exercises as provided by Physical Therapy. - Start outpatient physical therapy in 1-2 weeks. - Dressing: Remove the Refugio wrap by 2 days after your surgery and put on the JULIO stocking given to you from the hospital. Keep the surgical dressing (underneath the REFUGIO wrap) in place for at least one week. The dressing is a vacuum-assisted dressing which may need to have the batteries changed. After the first week it may be removed or left on with the tubing cut until follow-up. You should call the office for further instructions or if you have questions about this dressing. Medications: - You should take Tylenol for baseline pain control. - You have been prescribed a stronger pain medication Oxycodone for breakthrough pain, take as needed as prescribed. - You have been prescribed Valium for anxiety and pain. - You have an antibiotic for prophylaxis against infection you will take for one week. - You also have Tranexemic Acid which you will take at home to hopefully prevent recurrence of bleeding. This may not be in stock at the pharmacy. - You will continue taking Aspirin 81mg twice a day for DVT prevention unless instructed otherwise. - You have also been prescribed Decadron to take to control post-operative nausea and pain. You will start this tomorrow. - If you have constipation you should take Colace or Miralax (both [id number]). It takes most people 3-4 days to have a bowel movement. Follow-up: 2 weeks If you have any acute concerns or questions, please do not hesitate to contact the office at [phone]. You may contact Dr. Duvall with any questions after hours through the hospital at [phone] or on his cell phone at [phone]. Referrals: Zac Duvall MD [ [facility] STAFF PHYSICIAN] - Activity:: Elevate Remove Dressings/Wound Care:: Do Not Remove Shower/Bathe:: Cover Diet:: As Tolerated Discharge Orders Discharge Orders: Discharge Order (Routine); Ordered 01/27/24 Ordered By: Zac Duvall DS: Diagnosis Discharge Diagnosis (1) Hematoma of right knee region: Status: Acute
--- NOTE | 2024-01-27 09:18 | ROE_ITS ---
Date of service: 01/27/24 Time of Service: 07:40 Operative Note Operative Note DATE OF PROCEDURE: 01/27/24 PRE-OP DIAGNOSIS: Recurrent Hematoma / Hemarthrosis POST-OP DIAGNOSIS: same PROCEDURE: Hematoma evacuation from the superficial compartment Arthrotomy and hematoma evacuation with irrigation debridement of left knee Mitesh, vacuum-assisted, dressing application SURGEON: Zac Duvall ANESTHESIA TYPE: Spinal Refer to Anesthesia Record ESTIMATED BLOOD LOSS: 50 PATHOLOGY: none sent TOURNIQUET TIME: 0 COMPLICATIONS: None Indications: Rand is a 49-year-old female who is just over 2 weeks status post right knee replacement. Unfortunate she has had recurrent episodes of swelling, confirmed to be bleeding, which has limited any progress with her range of motion or exercises. Given the recurrence of this despite appropriate nonoperative care, I offered operative debridement, hematoma evacuation and evaluation. I discussed the risk of the procedure to include but not limited to bleeding, infection, pain, stiffness, and continued symptoms, need for repeat procedures, blood clot. Despite these risk, she elected to proceed. Findings: There was a significant mount of old clot seen within the superficial space. This appeared to be scarring in and I saw no active bleeding in this location. The knee arthrotomy was opened up which once again showed significant amount of old blood. There is no sign of infection, no purulence. There was some oozing from the posterior lateral space of the knee. However, no true bleeding appreciated. The knee was irrigated thoroughly and inspected. Any area of slight bleeding was cauterized. At the time of closure there is no significant oozing within the knee. Procedure Description: Rand was greeted in the preoperative holding area where the correct side was identified and marked. The consent was reviewed with the patient and signed. The history and physical was updated. All questions were answered. Rand was taken back to the operating room. A spinal anesthestic was administered. The patient was placed into the supine position on the operating room table. Posts were placed for positioning during the procedure. All bony prominences were well padded. Prophylactic antibiotics in the form of Cefazolin were administered. The left leg was then prepped with Chloraprep and draped in a standard fashion with impervious stockinette. A second prep with Chloraprep was performed prior to application of Iodine impregnated skin protection. A timeout to confirm correct identity, side and site, procedure, allergies, anesthesia, and medical concerns was performed. With the knee in some flexion, a midline incision was made overlying the knee utilizing the previous incision. Immediately once through the subcutaneous tissue there was a henry of bloody fluid. The remainder of the incision was op ened up down to the extensor mechanism. Hematoma was then evacuated. Utilized a rongeur to remove this from the tissues. There is extensive amount of old blood in this area which was starting to resorb and scar. The medial lateral skin flaps were elevated slightly to expose the arthrotomy location. An extensive debridement was performed of any remaining hematoma in this region. There was no defect of the arthrotomy. However, there is notable fluid and fullness underneath this. Therefore, I opened up the arthrotomy utilizing the previous incision line remove the excess sutures. Once again, there is a henry of blood-tinged joint fluid. There is no sign of purulence. There was notable hematoma seen in this region as well. This was debrided. The arthrotomy was opened almost completely for better visualization. There was some oozing seen from the posterior lateral space of the knee. Debridement was completed. There is some small bleeding around the arthrotomy edges which was cauterized. I then irrigated the knee thoroughly with nearly 1 L of normal salne. This was washed through the knee and used to help identify any areas of bleeding. While there was some oozing posterolateral surface I did not see any bleeding from the lateral meniscal artery. There is no active bleeding from the geniculate's in the superficial or deep space. I inspected this multiple times and saw no signs of active bleeding more than a very faint ooze. I then irrigated the knee with surgery for Betadine solution. Allowed to sit the knee for approximately 3 to 4 minutes. I then washed out once again with saline. I inspected it once more and saw no signs of active bleeding. I then injected the deep tissues all the way to the superficial tissues with 100 cc of a periarticular cocktail consisting of ropivacaine, epinephrine, clonidine, and ketorolac. The arthrotomy was then closed with multiple interrupted #2 FiberWire sutures. The tissue quality over the distal aspect of the arthrotomy was actually quite poor. There is some tearing noted in this area. However, multiple sutures were utilized to reapproximate these tissues without any gross defect. The knee was cycled through range of motion there is a small amount of fluid leak from the very distal aspect of the arthrotomy. There was no pulling of the sutures. This was sewed at 90 degrees and cycle up to 100 degrees of flexion. The deep tissues were then closed with a 0 Vicryl followed by 2-0 Vicryl. The skin was closed with a running 3-0 Monocryl in a subcuticular fashion. A mitesh vacuum-assisted dressing was applied with good suction noted. This was then complemented with a [id number] JACKIE wrap. A CryoCuff was applied. Rand was transferred to the hospital stretcher without difficulty an suffering no apparent complication. Rand has a gaurded prognosis. Aspirin 81mg BID will be continued for DVT prophylaxis. However, I will administer postoperative tranexamic acid to help with recurrence. Given the return to surgery at just over 2 weeks and its associated high risk of infection, also will give an extended prophylactic antibiotic course.
[2024-01-27] MEDS: oxyCODONE 5 MG TAB 20 MG PO (11:03)
--- NOTE | 2024-01-27 13:12 | W.ANESPOSTOP ---
Postoperative Evaluation Date, Time and Location Date Performed: 01/27/24 Time Performed: 12:06 Patient Location: Day Surgery Unit Vital Signs Most Recent Imported Vital Signs: Most Recent Vital Signs Temp Pulse Resp BP Pulse Ox 36.3 C L 93 H 16 154/89 H 96 01/27/24 11:30 01/27/24 11:30 01/27/24 11:30 01/27/24 11:30 01/27/24 11:30 Pain Score Most Recent Pain Score: Most Recent Pain Score Pain Level 8 01/27/24 11:30 Assessment Mental Status: Awake (Alert & Oriented to Patient Baseline) Airway and Respiratory Function: Patent airway with normal (patient baseline) respiratory exam Cardiovascular Function: Hemodynamically Stable Hydration Status: Adequately Hydrated Nausea & Vomiting: No Nausea or Vomiting Pain: Pain is tolerable per patient Peripheral Nerve Block: Patient did not receive a nerve block
== END 2024-01-27 12:08 | disposition home or self-care (01) ==
PROVIDERS: PCP Internal Medicine; Visit Provider Student in an Organized Health Care Education/Training Program
PROC: (CPT 27447; principal; 2024-01-27 07:30)
DX: T84.83XA Hemorrhage due to internal orthopedic prosthetic devices, implants and grafts, initial encounter (principal); Z96.652 Presence of left artificial knee joint; M25.062 Hemarthrosis, left knee; S80.01XA Contusion of right knee, initial encounter
CPT/HCPCS: 27310; J0690; J1100; J2001; J2250; J2371; J2401; J2405; J2704

== ENCOUNTER 2024-02-03 10:23 | Outpatient (REF) | payer MEDICAID, SELFPAY ==
[2024-02-03 12:08] LABS: Clarity Cloudy
[2024-02-03 12:09] LABS: Mononuclear Cells 10 %; Nucleated Cells 14360 uL (0); Polynuclear Cells 90 %
== END 2024-02-03 10:24 | disposition home or self-care (01) ==
LOC: LBN 10:23
PROVIDERS: PCP Internal Medicine; Visit Provider Physician Assistant
DX: T84.84XA Pain due to internal orthopedic prosthetic devices, implants and grafts, initial encounter (principal); Z96.652 Presence of left artificial knee joint
CPT/HCPCS: 87077; 87070; 87186; 87205; 89051

== ENCOUNTER 2024-02-06 13:52 | Inpatient (IN) | payer MEDICARE, MEDICAID, SELFPAY ==
--- NOTE | 2024-02-06 18:54 | ANES.PREOP_ITS ---
General Info Date of Service Date Performed: 02/07/24 Height: 5 ft 8 in Weight: 118 kg Body Mass Index (BMI): 39.5 Surgical Procedure: Operation Date: 02/07/24 07:40 Proposed Procedure Side Surgeon p Knee Polyethylene Exchange Right Zac Duvall MD Meds Allergies and Home Medications Allergies Allergy/AdvReac Type Severity Reaction Status Date / Time aspirin Allergy Severe Other (See Verified 02/03/24 10:05 Comment) acetaminophen Allergy Unknown Other (See Verified 02/03/24 10:05 [From Darvocet-N] Comment) propoxyphene Allergy Unknown Other (See Verified 02/03/24 10:05 [From Darvocet-N] Comment) Thiazides Allergy Unknown Other (See Verified 02/03/24 10:05 Comment) NSAIDS (Non-Steroidal Allergy Anaphylaxsi Verified 02/03/24 10:05 Anti-Inflamma s Sulfa (Sulfonamide AdvReac childhood Verified 02/03/24 10:05 Antibiotics) Home Medication Medication Instructions Recorded albuterol sulfate 90 mcg/actuation 2 puff inhalation Q6H PRN 10/22/21 aerosol inhaler (ProAir HFA) gabapentin 300 mg capsule 300 mg PO DAILY 10/05/23 duloxetine 30 mg capsule,delayed 90 mg PO DAILY 11/21/23 release (Cymbalta) methadone 40 mg soluble tablet 69 mg PO DAILY 12/30/23 methylphenidate HCl 20 mg tablet 20 mg PO TID 12/30/23 (Ritalin) prazosin 1 mg capsule 1 mg PO BID 12/30/23 acetaminophen 500 mg tablet 1,000 mg (2 x 500 mg) PO Q8H PRN 01/14/24 pain #90 tabs pantoprazole 40 mg tablet,delayed 40 mg PO DAILY@0730 #30 tabs 01/14/24 release diazepam 5 mg tablet 5 mg PO BID PRN anxiety and pain 01/27/24 #14 tabs methocarbamol 750 mg tablet 750 mg PO QID #40 tabs 01/27/24 oxycodone 20 mg tablet 20 mg PO Q4H PRN pain #42 tabs 02/03/24 Current Visit Medications: Current Medications Generic Name Dose Route Start Last Admin Trade Name Freq PRN Reason Stop Dose Admin Acetaminophen 1,000 mg 02/06/24 14:00 02/06/24 17:11 Acetaminophen 500 Mg Tab PO Not Given TID [facility] Albuterol Sulfate 2 puff 02/06/24 13:55 Albuterol Hfa 8 Gm 60 Puff Inh IH Q6H PRN PRN Device 1 each 02/06/24 14:00 Inhaler, Assist Device DIRECTED [facility] Diazepam 5 mg 02/06/24 14:00 02/06/24 17:12 Diazepam 5 Mg Tab PO Not Given TID [facility] Duloxetine HCl 90 mg 02/07/24 08:30 Duloxetine 30 Mg Cap PO DAILY RAMESH Gabapentin 300 mg 02/07/24 08:30 Gabapentin 300 Mg Cap PO DAILY [facility] Ringer's Solution 1,000 mls @ 80 mls/hr 02/06/24 23:00 IV INFUSION [facility] IV Miscellaneous Supplies 1 each 02/06/24 14:15 Iv Access IV DIRECTED [facility] Methylphenidate HCl 20 mg 02/06/24 20:00 Methylphenidate 10 Mg Tab PO TID [facility] Non-Formulary Medication 71 mg 02/07/24 08:30 Methadone PO DAILY [facility] Oxycodone HCl 20 - 30 mg 02/06/24 17:42 Oxycodone 10 Mg Tab PO Q4H PRN PRN Pantoprazole Sodium 40 mg 02/07/24 07:30 Pantoprazole 40 Mg Tabcr PO DAILY@0730 [facility] Prochlorperazine Maleate 5 mg 02/06/24 13:57 Prochlorperazine 5 Mg Tab PO Q6H PRN PRN Sodium Chloride 0 ml 02/06/24 14:02 Normal Saline Flush 10 Ml Syr IVP PRN PRN Sodium Chloride 0 ml 02/06/24 20:00 Normal Saline Flush 10 Ml Syr IVP BID [facility] Sodium Chloride 0 ml 02/06/24 14:02 Normal Saline 10 Ml Vial IJ DIRECTED PRN PFSH Active Problems Active Problems: Problem Status Onset Code Hematoma of right knee region S80.01XA Status post total right knee replacement 01/11/24 Z96.651 Hypertension I10 GERD (gastroesophageal reflux disease) K21.9 Medical History Medical History Attention deficit disorder Heart murmur, systolic Pt. states she's been told she has one in the doctors office but never required any tx for it Xerosis of skin Gout Hyperlipidemia Sinusitis Exposure to COVID-19 virus Tear of meniscus of left knee (04/06/17) Post-traumatic osteoarthritis of left knee (04/06/17) Migraine Depression Substance abuse Tobacco dependence Surgical History Surgical History History of total left knee replacement (TKR) (09/27/17) History of hysterectomy History of cholecystectomy Tobacco Smoking/Tobacco Use Status: Current every day Tobacco Type: cigarettes Alcohol Alcohol Intake: never Substance Use Substance use: Current Sobriety Substance use type: does not use 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 01/27/24: smoked 2 cigarettes prior to DSU 01/27/24: pt reports pain in back, difficulty lying flat, sleeps in a recliner. Vital Signs and Lab Results Lab Results 02/06/24 21:33 02/06/24 21:33 Blood Type / Crossmatch: 2 No Data to Display Complete Blood Count: 2 White Blood Count 12.12 10^3/uL (4.4-10.8) H 02/06/24 21:33 Red Blood Count 2.81 10^6/uL (3.93-5.22) L 02/06/24 21:33 Hemoglobin 8.3 g/dL (11.2-15.7) L 02/06/24 21:33 Hematocrit 25.8 % (36.0-46.0) L 02/06/24 21:33 Platelet Count 504 10^3/uL (130-400) H 02/06/24 21:33 Complete Metabolic Panel: 2 Sodium 139 mmol/L (136-145) 02/06/24 21:33 Potassium 3.5 mmol/L (3.5-5.1) 02/06/24 21:33 Chloride 99 mmol/L (98-107) 02/06/24 21:33 Carbon Dioxide 31.4 mmol/L (21.0-32.0) 02/06/24 21:33 BUN 8 mg/dL (7-18) 02/06/24 21:33 Creatinine 0.8 mg/dL (0.55-1.02) 02/06/24 21:33 Est GFR (CKD-EPI 2020) 90.27 (mL/min/1.73m2) 02/06/24 21:33 Calcium 8.8 mg/dL (8.5-10.1) 02/06/24 21:33 Albumin 2.6 g/dL (3.4-5.0) L 02/06/24 21:33 Glucose 102 mg/dL (74-106) 02/06/24 21:33 Hemoglobin A1c 6.2 % (<5.7) H 02/06/24 21:33 C-Reactive Protein 21.87 mg/dL (<or=0.5) H 02/06/24 21:33 Liver Function Panel: 2 Alanine Aminotransferase (ALT/SGPT) 25 U/L (14-59) 02/06/24 21: 33 Aspartate Amino Transf (AST/SGOT) 19 U/L (15-37) 02/06/24 21:33 Coagulation Panel: 2 No Data to Display Cardiac Panel: 2 No Data to Display Arterial Blood Gas: 2 No Data to Display Venous Blood Gas: 2 No Data to Display Pancreas Panel: 2 No Data to Display Thyroid Panel: 2 No Data to Display Infectious Disease: 2 No Data to Display Blood Cultures: 2 No Data to Display Toxicology Panel: 2 No Data to Display Panel: 2 No Data to Display Anesthesia Assessment and Plan Anesthesia History Personal History: No History of Anesthesia Complications Family History: No Family History of Anesthesia Complications Exercise Tolerance Exercise Tolerance: Metabolic Equivalents>4 Cardiac & Pulmonary Exam Cardiac Exam: Normal S1/S2 Heart Sounds Pulmonary Exam: Clear Bilateral Breath Sounds Implantable Cardiac Device Does patient have a Pacemaker or an ICD?: No Airway Exam Known Difficult Airway: No Mallampati Class: 2 Mouth Opening: Normal (> 3cm) Thyromental Distance: Greater than 3 cm Neck Range of Motion: Full ROM Neck Circumference: Thick Teeth Condition: Edentulous ASA Classification ASA Score: ASA 3 Emergency Case?: No NPO Status NPO Status: NPO Clears >2 hours, Solids >8 hours Status Status: Not Relevant due to Medical History Anesthesia Plan Resuscitation Status: Full Code Anesthesia Technique: General Anesthesia Airway Planned: Endotracheal Tube Monitors Used: Standard Monitors Preoperative Comments:: 49 yo female for poly exchange. Has had increasing pain in her knee since her replacement. Currently admitted. Sig PMHx: HTN, GERD, ADHD. daily smoker. Previous Anes: - hematoma evacuation knee, spinal, chloro, no block. - TKA, spinal, chloro, prop sedation, phenyl/ephedrine. adductor 10 mL exparel, 10 mL 0.25, midaz. - TKA, spinal, 1.6 mL heavy, prop sedation, phenyl boluses. Adductor canal block with midaz. - knee scope, LMA 4, no issues. Adductor. Discussed spinal vs GA, would prefer GA.
[2024-02-06] MEDS: Acetaminophen 500 MG TAB 1000 MG PO (19:31)
[2024-02-06 19:35] VITALS: BP 114/67; PULSE 90; RESP 20; TEMP 37.3; O2SAT 95
[2024-02-06] MEDS: diazePAM 5 MG TAB PO (19:35)
[2024-02-06] MEDS: oxyCODONE 10 MG TAB PO ×2 (19:35→23:39)
[2024-02-06 21:50] LABS: ESR 24 mm/hr (0-20); HCT 25.8 % (36.0-46.0); HGB 8.3 g/dL (11.2-15.7); MCH 29.5 pg (27.0-33.0); MCHC 32.2 % (32.0-36.0); MCV 92 fL (80-95); MPV 9.2 fL (8.0-11.0); Platelet Count 504 10^3/uL (130-400); RBC 2.81 10^6/uL (3.93-5.22); RDW 12.7 % (11.7-14.6); WBC 12.12 10^3/uL (4.4-10.8)
[2024-02-06 22:05] LABS: ALT 25 U/L (14-59); AST 19 U/L (15-37); Albumin 2.6 g/dL (3.4-5.0); Alkaline Phosphatase 122 U/L (46-116); Anion Gap 8.6 mmol/L (3-11); BUN 8 mg/dL (7-18); Bilirubin, Total 0.3 mg/dL (0.2-1.0); C-Reactive Protein 21.87 mg/dL (<or=0.5); CO2 31.4 mmol/L (21.0-32.0); CREATININE 0.8 mg/dL (0.55-1.02); Calcium 8.8 mg/dL (8.5-10.1); Chloride 99 mmol/L (98-107); Estimated GFR 90.27 (mL/min/1.73m2); Glucose 102 mg/dL (74-106); Potassium 3.5 mmol/L (3.5-5.1); Sodium 139 mmol/L (136-145); Total Protein 7.4 g/dL (6.4-8.2)
[2024-02-06] MEDS: Normal Saline Flush 10 ML SYR IVP ×2 (22:06→23:03)
[2024-02-06 22:11] LABS: Hemoglobin A1C 6.2 % (<5.7)
[2024-02-06 22:13] LABS: Absolute Neutrophil Count 8.97 10^3/uL (1.2-6.7)
[2024-02-06 22:14] LABS: Absolute Basophil Count 0.12 10^3/uL (0.0-0.2); Absolute Lymphocyte Count 1.94 10^3/uL (1.2-3.4); Absolute Monocyte Count 1.09 10^3/uL (0.1-0.8); Diff Comment Manual Differential; RBC Morphology Normal
[2024-02-06] MEDS: Lactated Ringers 1,000 ML 80 ML IV (23:00)
[2024-02-06] MEDS: Prazosin 1 MG CAP PO (23:02)
[2024-02-06 23:07] VITALS: BP 121/78; PULSE 87; RESP 19; TEMP 36.7; O2SAT 93
[2024-02-07] VITALS (25 sets, daily range): BP systolic 112–144; BP diastolic 40–88; PULSE 72–92; RESP 15–20; TEMP 35.8–36.8; O2SAT 94–100; BMI 39.5
[2024-02-07] MEDS: oxyCODONE 10 MG TAB PO ×3 (03:44→19:37)
--- NOTE | 2024-02-07 05:55 | HPE_ITS ---
Date of service: 02/07/24 Time of Service: 07:00 Assessment and Plan Assessment and plan (1) Infection of prosthetic right knee joint: Status: Acute Assessment and plan: Rand is a 49-year-old female who is now about 4 weeks status post right knee replacement. She had this initial hematoma which seem to be all blood. Unfortunately, the blood aspirate was not sent to the lab for culture at that time. However, after washout she had improvement but then shortly thereafter started having increasing pain and swelling. She was brought down for aspiration which showed MRSA yesterday in the culture. I was very honest with Rand that this is unfortunate. Is unclear if this was present before the washout or after the washout. Either way, it is in the knee and needs to be washed out again. Staph aureus has a tendency to be resistant to attempts of components salvage. However, her ESR is only 24 which would suggest this is an early infection and it is within the 28-day window and she has been partially washed out a little over a week ago at the time of the hematoma evacuation. She was placed on prophylactic antibiotics but they would not have covered MRSA. She denies having any previous MRSA infections. At this point, I recommend urgent irrigation and debridement of the right knee with an aggressive synovectomy and polyethylene exchange. She will then need IV antibiotics likely for 4 to 6 weeks. I will also supplement with rifampin to help break any biofilm. She would likely need to be in the hospital for at least a few days until we finalize antibiotic regimen. (2) Substance abuse: Assessment and plan: Rand does have opiate use disorder and is being treated with methadone which she has purposely tried to decrease over the last few months. Unfortunately, this makes pain challenging. She also has significant anxiety in regards to pain. She has done well with a regimen of diazepam and oxycodone. The oxycodone 20 to 30 mg unfortunately is necessary for her pain control at this time. Hopefully with improving the infection which is inside the knee her pain will be also able to improve but she will require a large dose of narcotic pain medication given her ongoing use of methadone and her previous history. We will continue to monitor pulse oximetry continuously to ensure safety. (3) Anemia: Status: Chronic Assessment and plan: Anemic today. Likely combination of multiple surgeries and infection. Will obtain type and screen. Potentially will require transfusion. History of Present Illness History of Present Illness Chief Complaint: Right Prosthetic Knee Infection N arrative: Rand is a 49-year-old female who underwent a right knee replacement on January 11, 2024. She has known pain control issues with a opiate abuse history, although clean and currently on a reducing dose of methadone. She was admitted for pain control and was able to discharge to home. However, she had notable swelling about the right knee, thought to be bleeding from within the knee from early on. This persisted to the point the knee was very swollen. An aspirate was performed in the office which was of gross blood from within the knee. Given the limitation with range of motion and the amount of swelling in the knee she then went for a hematoma evacuation on January 26. During that time a large amount of new and old blood was evacuated but there was no sign of bleeding. It was washed out and then closed. She was able to return home and did well for the first few days but then very slowly developed worsening pain and swelling. She was seen in the office on February 02 where the knee was still quite swollen. She had minimal ambulation. She was unable to have the leg in a dependent position and there was concern about potential infection. The knee was aspirated. Initial aspirate did have a predominance of cells and then eventually on February 05, became positive for MRSA. I called Rand with these results and recommended proceeding with urgent irrigation and debridement and polyethylene exchange about the right knee. She reports significant pain in the right knee. She has notable swelling. She denies any chest pain or shortness of breath. She has pain and is tired of having pain. She has not slept well. She denies any other recent illnesses. She has tried to decrease her usage of pain medication but has been unsuccessful. She still has her mitesh dressing in place. Review of Systems All systems reviewed & are unremarkable except as noted in HPI and below PFSH All Active Problems (Updated 02/07/24 @ 06:20 by Zac Duvall MD) Anemia (Chronic) Infection of prosthetic right knee joint (Acute) Hematoma of right knee region (Acute) Status post total right knee replacement (Acute 01/11/24) Hypertension (Chronic) GERD (gastroesophageal reflux disease) (Chronic) Medical History (Updated 02/07/24 @ 06:20 by Zac Duvall MD) Attention deficit disorder Heart murmur, systolic Pt. 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 01/27/24: smoked 2 cigarettes prior to DSU 01/27/24: pt reports pain in back, difficulty lying flat, sleeps in a recliner. Housing: house Do you feel safe in your relationship?: Yes Meds Allergies and Home Medications Allergies Allergy/AdvReac Type Severity Reaction Status Date / Time aspirin Allergy Severe Other (See Verified 02/03/24 10:05 Comment) acetaminophen Allergy Unknown Other (See Verified 02/03/24 10:05 [From Darvocet-N] Comment) propoxyphene Allergy Unknown Other (See Verified 02/03/24 10:05 [From Darvocet-N] Comment) Thiazides Allergy Unknown Other (See Verified 02/03/24 10:05 Comment) NSAIDS (Non-Steroidal Allergy Anaphylaxsi Verified 02/03/24 10:05 Anti-Inflamma s Sulfa (Sulfonamide AdvReac childhood Verified 02/03/24 10:05 Antibiotics) Home Medications Medication Instructions Recorded Confirmed Type albuterol sulfate 90 mcg/actuation 2 puff inhalation Q6H PRN 10/22/21 02/06/24 History aerosol inhaler (ProAir HFA) gabapentin 300 mg capsule 300 mg PO DAILY 10/05/23 02/06/24 History duloxetine 30 mg capsule,delayed 90 mg PO DAILY 11/21/23 02/06/24 History release (Cymbalta) methadone 40 mg soluble tablet 69 mg PO DAILY 12/30/23 02/06/24 History methylphenidate HCl 20 mg tablet 20 mg PO TID 12/30/23 02/06/24 History (Ritalin) prazosin 1 mg capsule 1 mg PO BID 12/30/23 02/06/24 History acetaminophen 500 mg tablet 1,000 mg (2 x 500 mg) PO Q8H PRN 01/14/24 02/06/24 Rx pain #90 tabs pantoprazole 40 mg tablet,delayed 40 mg PO DAILY@0730 #30 tabs 01/14/24 02/06/24 Rx release diazepam 5 mg tablet 5 mg PO BID PRN anxiety and pain 01/27/24 02/06/24 Rx #14 tabs methocarbamol 750 mg tablet 750 mg PO QID #40 tabs 01/27/24 02/06/24 Rx oxycodone 20 mg tablet 20 mg PO Q4H PRN pain #42 tabs 02/03/24 02/06/24 Rx Exam Const General: cooperative and uncomfortable Nutritional Appearance: average body habitus and well nourished Orientation: alert, awake and oriented x3 Resp Effort & Inspection: normal respiratory effort Auscultation: clear to auscultation bilaterally Cardio Rate: regular rate Rhythm: regular rhythm Extrem Other: Right lower extremity shows notable swelling about the knee. There is a mitesh dressing in place with serosanguineous discharge. Significant swelling about the knee. 2+ edema within the lower leg. Any range of motion causes pain about the right knee. She has active ankle dorsiflexion plantarflexion as well as great toe extension and flexion. Sensation intact to light touch over the deep and superficial peroneal nerve and tibial nerve. Palpable DP and PT pulse. Results Imaging Imaging Studies: Previous x-rays from the office visit on January 22 do not show any signs of loosening or fracture. Labs 02/06/24 21:33 02/06/24 21:33 Labs: Laboratory Results - last 24 hr 02/06/24 21:33 WBC 12.12 H RBC 2.81 L Hgb 8.3 L Hct 25.8 L MCV 92 MCH 29.5 MCHC 32.2 RDW 12.7 Plt Count 504 H MPV 9.2 Immature Gran % 0.0 Neutrophils % 74.0 Lymphocytes % 16.0 Monocytes % 9.0 Eosinophils % 0.0 Basophils % 1.0 Nucleated RBC % 0.0 Absolute Neutrophils 8.97 H Absolute Lymphocytes 1.94 Absolute Monocytes 1.09 H Absolute Eosinophils 0.00 Absolute Basophils 0.12 RBC Morphology Normal ESR 24 H Sodium 139 Potassium 3.5 Chloride 99 Carbon Dioxide 31.4 Anion Gap 8.6 BUN 8 Creatinine 0.8 Est GFR (CKD-EPI 2020) 90.27 Glucose 102 Hemoglobin A1c 6.2 H Calcium 8.8 Total Bilirubin 0.3 AST 19 ALT 25 Alkaline Phosphatase 122 H C-Reactive Protein 21.87 H Total Protein 7.4 Albumin 2.6 L Last Vital Signs Temp 36.7 C 02/07/24 03:28 Pulse 89 02/07/24 03:28 Resp 17 02/07/24 03:28 BP 127/75 02/07/24 03:28 Pulse Ox 96 02/07/24 03:28 Time Spent Time spent with Patient: 55-74 minutes Time was spent: preparing to see the patient(eg.review tests), obtaining and/or reviewing separately otained hiistory, ordering medications,tests, procedures, indepentently interpreting results and counseling the patient
--- NOTE | 2024-02-07 07:29 | W.PM.OP ---
Date of service: 02/07/24 Time of Service: 07:45 Operative Note Operative Note DATE OF PROCEDURE: 02/07/24 PRE-OP DIAGNOSIS: Infected Right Total Knee Arthroplasty POST-OP DIAGNOSIS: same PROCEDURE: Irrigation and debridement with synovectomy and polyethylene exchange ? RIGHT knee Application of vacuum-assisted, JOHANNA, dressing - RIGHT knee SURGEON: Zac Duvall ASSOCIATE MATERIAL HANDLER: Aline Stephen ANESTHESIA TYPE: General LMA/ETT Refer to Anesthesia Record PATHOLOGY: other (Multiple fluid and tissue sample sent for culture) TOURNIQUET TIME: 0 COMPLICATIONS: None Indications: Rand is a 49-year-old female who is status post right knee replacement. While she did have some initial swelling and pain things seem to be making some improvements. However, after the first week she had recurrence of swelling about the right knee. Aspiration in the office revealed blood and this was thought to be a recurrent hematoma. She was taken for irrigation and debridement of the hematoma. She had initial improvement but then once again developed swelling and pain. Aspiration of the knee eventually revealed MRSA of the right knee. Given this finding I recommended urgent irrigation and debridement with polyethylene exchange and attempts to keep the knee components, particular given the acute timing as well as the relatively low ESR. I discussed this procedure with Rand over the phone and in person. I reviewed the risk to include bleeding, continued infection, need for repeat procedures, damage to muscles and tendons, damage to nerves and vessels, prosthetic loosening, blood clot, cardiopulmonary complications. Despite these risk, she elects to proceed. Findings: There was necrotic appearing tissue in the subcutaneous space above the knee. There was seropurulent material within the knee itself with some debris. An aggressive debridement is performed extra-articular and intra-articularly along with saline washout and Betadine irrigation. Polyethylene exchange was also performed. Procedure Description: Rand was greeted on the medical surgical floor where the correct side was identified and marked. The consent was reviewed with the patient and signed. The history and physical was updated. All questions were answered. Rand was taken back to the operating room. A general anesthestic was administered. The patient was placed into the supine position on the operating room table. Posts were placed for positioning during the procedure. All bony prominences were well padded. Prophylactic antibiotics in the form of Cefazolin were administered. The right leg was then prepped with Chloraprep and draped in a standard fashion with impervious stockinette. A second prep with Chloraprep was performed prior to application of Iodine impregnated skin protection. A timeout to confirm correct identity, side and site, procedure, allergies, anesthesia, and medical concerns was performed. With the knee in some flexion, a midline incision was made overlying the knee excising the previous wound edges. Full thickness skin flaps were raised once the extensor mechanism was encountered. These were raised medially and laterally. Any bleeding was controlled with electrocautery. There was some necrosis and inflamed tissue seen in this region. Culture swabs and tissue cultures were sent from the space. [place] and a large curette was used to perform debridement in this extra-articular space debriding the undersurface of the skin flaps as well as the capsule. This was performed until down to healthy appearing tissue. The extensor mechanism, arthrotomy, repair was now visible. The extensor mechanism was intact. All the sutures were removed individually so to not leave any debris behind. Once all the sutures were removed the arthrotomy was opened and there was a henyr of seropurulent material. Culture swabs were taken from the intra-articular spaces and sent to the lab. An aggressive synovectomy was performed. 2 Allis clamps were used on the retinaculum and tendinous material and a rongeur and Luis were used to debride the remainder of the synovium. A large rongeur was used as well as a large curette to physically debride all the surfaces from within the knee. There is no gross necrosis. There is no area of abscess. There is no bony erosions. The knee was flexed up and the polyethylene was removed. The posterior aspect of the knee was debrided with a rongeur as well as the medial lateral gutters. The knee was then aggressively irrigated with saline irrigation, 3 L. During this process I also used a rongeur and a curette to remove any other necrotic appearing tissue. The knee was washed flexion and extension and to continually inspected until irrigation completed. The periosteal and capsular tissues were then systematically injected with a periarticular cocktail consisting of 100 cc of ropivacaine, epinephrine, clonidine, ketorolac. A second look of the knee was once again performed and showed no signs of necrosis or inflammatory or infected material. The knee was then irrigated with Surgiphor Betadine solution. It was allowed to sit the knee for a minimum of 3 minutes before being irrigated. While the Betadine was setting up inside the knee, a second table was brought in with new equipment. The team changed gloves. New draping was also applied. The Betadine was then irrigated out with saline. There is no significant bleeding. Using #1 Antimicrobial PDS, the arthrotomy and quadriceps split was repaired. This was done in interrupted fashion using [id number] and simple sutures. The tissue quality was better than expected except for an area about the mid inferior patella. And about 80 degrees of flexion, there was great reapproximation of these tissues to each other. The wound was once again irrigated with saline. Deep tissues were then reapproximated with 0 and 2-0 Monocryl. The skin was closed with philly. This was reinforced with skin glue. A johanna, vacuum-assisted, dressing was then applied. The leg was wrapped with an Refugio wrap from the foot to the thigh. A CryoCuff was applied. Rand was transferred to the hospital bed without difficulty an suffering no apparent complication. Rand has a gaurded prognosis. Lovenox 40 mg daily will be used for DVT prophylaxis while in the hospital and then transition to aspirin 81 mg twice daily. She will be started on vancomycin for coverage of MRSA.
[2024-02-07] MEDS: Lactated Ringers 1,000 ML 30 ML IV (07:35)
[2024-02-07] MEDS: Tranexamic Acid 1,000 MG/10 ML VIAL 1000 MG (07:50)
[2024-02-07] MEDS: ceFAZolin 2 GM/50 ML BAG IVPB (08:12)
[2024-02-07] MEDS: VANCOMYCIN/WATER (PEG) 2 GM/400 ML BAG IV (08:29)
[2024-02-07] MEDS: fentaNYL 100 MCG/2 ML VIAL IVP ×2 (09:48→09:55)
[2024-02-07] MEDS: Methadone Liquid 10 MG/ML 69 MG PO (10:07)
--- NOTE | 2024-02-07 10:18 | W.ANESPOSTOP ---
Postoperative Evaluation Date, Time and Location Date Performed: 02/07/24 Time Performed: 10:18 Patient Location: PACU Vital Signs Most Recent Imported Vital Signs: Most Recent Vital Signs Temp Pulse Resp BP Pulse Ox 36.7 C 89 17 127/75 96 02/07/24 03:28 02/07/24 03:28 02/07/24 03:28 02/07/24 03:28 02/07/24 03:28 Assessment Mental Status: Awake (Alert & Oriented to Patient Baseline) Airway and Respiratory Function: Patent airway with normal (patient baseline) respiratory exam Cardiovascular Function: Hemodynamically Stable Hydration Status: Adequately Hydrated Nausea & Vomiting: No Nausea or Vomiting Pain: Pain is Moderate or Severe Postoperative Pain Management: Pain being addressed with medication Peripheral Nerve Block: Patient did not receive a nerve block
[2024-02-07] MEDS: HYDROmorphone 2 MG/ML SYR IVP (10:46)
--- NOTE | 2024-02-07 11:01 | PDOC.CMIN ---
Date of service: 02/07/24 Time of Service: 11:02 Care Management Initial Assmt Initial Assessment Reason for Hospitalization: Infected right TKA Functional Status/Living Situation Patient Presentation: Rand was sleeping when CM attempted to meet with her. Her fiance, Jono, was in the room and engaged in conversation with CM. He verified that Rand does not currently have insurance, but that she has been trying to get ADELA[employer]. CM sent a referral to Connie, who will reach out to Rand to help assist with obtaining insurance. 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 Her antibiotic course is not yet established. Insurance will be a barrier to these options, therefore it is imperative that she talk with Connie when they reach out. CM will continue to follow. Town of Residence: [place] Resides with: Other (Jono) Instrumental Activities of Daily Living (ADLs): Independent Medications Medication Management: No Issues/Barriers identified Advance Directives Advance Directives: Do you have an Advance Directive: N 03/17/17 15:35 AD On File at [facility]: N 03/25/14 15:26 Date Asked 02/06/24 02/06/24 13:48 AD Date Reviewed 02/06/24 02/06/24 18:36 COLST On File at [facility] COLST Date Scanned Code Status Resuscitation Status Full Code Insurance Coverage/Financial Issues Insurance: self pay ACO Member: No Care Team Visit Care Team Role Provider Type Nghia Ayala Primary Care Provider [facility] STAFF PHYSICIAN Zac Duvall MD Admit Provider [facility] STAFF PHYSICIAN Attending Provider Discharge Potential Discharge Needs: Consult, PT Evaluation and PCP F/U Appt Anticipated Barriers to Discharge: None Identified Patient/Family Education Needs: Review discharge instructions, discuss Ask Me Three Transportation: Private vehicle Plan: Rand may need longterm IV antibiotics; course to be determined by . CM will review the options with Rand if this is determined to be the plan. Her boyfriend, Jono, will drive her home via private. She will follow up with Ortho, her PCP and discharge plan of care. CM will continue to follow. PFSH All Active Problems (Updated 06/18/24 @ 06:20 by Zac Duvall MD) Anemia (Chronic) Infection of prosthetic right knee joint (Acute) Hematoma of right knee region (Acute) Status post total right knee replacement (Acute 01/11/24) Hypertension (Chronic) GERD (gastroesophageal reflux disease) (Chronic) Medical History (Updated 02/07/24 @ 06:20 by Zac Duvall MD) Attention deficit disorder Heart murmur, systolic Pt. 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 01/27/24: smoked 2 cigarettes prior to DSU 01/27/24: pt reports pain in back, difficulty lying flat, sleeps in a recliner. Housing: house Do you feel safe in your relationship?: Yes SDOH(Care Management) Screening Will the Patient Participate in the Screening?: Unable to obtain Do you worry about having a steady place to live?: no Problems where you live: no known problems In the past 12 months, have you had to go without electric, gas, oil or water in your home?: no Have you or anyone in your house had to go without enough food to eat?: no Has lack of transportation kept you from medical appointments or from doing things needed for daily living?: yes Has anyone in your support network made you feel unsafe for any reason?: no Health Related Social Needs Health related social needs: transportation insecurity(Z59.82) Health related social needs details: Pt is having difficulty w/ transportation and insurance issues
[2024-02-07] MEDS: Protein Nutritional Supplement 16 GM 1 OUNCE PACKET PO ×2 (12:21→20:58)
[2024-02-07] MEDS: Nicotine 14 MG/24 HR PATCH TD (13:26)
--- NOTE | 2024-02-07 14:09 | PHA.REVIEW2 ---
Pharmacy Admission Review Admission Clinical Review Admission Pharmacy Review: Infection of prosthetic right knee joint (Acute) aspirin Allergy (Severe, Verified 02/03/24 10:05) Other (See Comment) acetaminophen [From Darvocet-N] Allergy (Unknown, Verified 02/03/24 10:05) Other (See Comment) propoxyphene [From Darvocet-N] Allergy (Unknown, Verified 02/03/24 10:05) Other (See Comment) Thiazides Allergy (Unknown, Verified 02/03/24 10:05) Other (See Comment) NSAIDS (Non-Steroidal Anti-Inflamma Allergy (Verified 02/03/24 10:05) Anaphylaxsis Sulfa (Sulfonamide Antibiotics) Adverse Reaction (Verified 02/03/24 10:05) childhood Resuscitation Status Full Code Height 5 ft 8 in Weight 118 kg Comments Comments/Follow Ups: Watch VS, H/H, labs, for culture results and for med changes. Pharmacy Admission Review Renal Dosing Renal Dosing: BUN 8 mg/dL (7-18) 02/06/24 21: Creatinine 0.8 mg/dL (0.55-1.02) 02/06/24 21:33 Medications needing adjustments: Reviewed (Crcl ~114 mL/min current meds okay) Anticoagulation Anticoagulation: Hgb 8.3 g/dL (11.2-15.7) L 02/06/24 21:33 Hct 25.8 % (36.0-46.0) L 02/06/24 21:33 Plt Count 504 10^3/uL (130-400) H 02/06/24 21:33 Creatinine 0.8 mg/dL (0.55-1.02) 02/06/24 21:33 DVT Prophylaxis: Reviewed Medications: Enoxaparin Opiate Usage Evaluate Pain Scale/Pains Meds: Reviewed Scheduled Bowel Reg ordered if on Opiates?: No (will mention to provider) Relevant Labs Relevant Labs: ESR 24 mm/hr (0-20) H 02/06/24 21:33 Sodium 139 mmol/L (136-145) 02/06/24 21:33 Potassium 3.5 mmol/L (3.5-5.1) 02/06/24 21:33 Chloride 99 mmol/L (98-107) 02/06/24 21:33 C-Reactive Protein 21.87 mg/dL (<or=0.5) H 02/06/24 21:33 Electrolytes, C-Reactive P, ESR: Reviewed DM Control DM Control: Glucose 102 mg/dL (74-106) 02/06/24 21:33 Hemoglobin A1c 6.2 % (<5.7) H 02/06/24 21:33 DM Control: N/A Cardiac Review BP, HR, EF%: Reviewed QTc Review QTc: N/A IV to PO Switch IV Medications: Reviewed Home Meds Home Med List reviewed: Reviewed Relevent Home Meds Not ordered & why?: methocarbamol Current Meds Current Medication Order Review: Reviewed Pharmacy Antibiotic Review Relevant Labs: Relevant Labs 02/06/24 21:33 C-Reactive Protein 21.87 H Pharmacy Antibiotic Activity: C/S review Comments: Vanco, rifampin, and ceftriaxone ordered with . Surgical culture from 02/02 growing MRSA, multiple blood and surgical cultures pending. Vanco dosed 1 gram Q8H to target higher trough per provider, predicted trough 19.1 and predicted AUC 550. Comments Comments/Follow Ups: Watch VS, H/H, labs, for culture results and for med changes.
[2024-02-07] MEDS: Acetaminophen 500 MG TAB 1000 MG PO ×2 (15:21→19:36)
[2024-02-07] MEDS: cefTRIAXone 2 GM/50 ML BAG IVPB (15:21)
[2024-02-07] MEDS: diazePAM 5 MG TAB PO ×2 (15:21→19:37)
[2024-02-07] MEDS: Lactated Ringers 1,000 ML 80 ML IV (15:22)
[2024-02-07] MEDS: Methylphenidate 10 MG TAB 20 MG PO (16:08)
[2024-02-07] MEDS: VANCOMYCIN/WATER (PEG) 1 GM/200 ML BAG IVPB (16:09)
[2024-02-07 17:17] LABS: HCT 21.3 % (36.0-46.0)
[2024-02-07 17:22] LABS: HGB 6.8 g/dL (11.2-15.7)
[2024-02-07] MEDS: diphenhydrAMINE 25 MG CAP PO (18:41)
[2024-02-07] MEDS: Prazosin 1 MG CAP PO (19:36)
[2024-02-07] MEDS: Normal Saline Flush 10 ML SYR IVP (20:57)
[2024-02-08] MEDS: VANCOMYCIN/WATER (PEG) 1 GM/200 ML BAG IVPB ×3 (00:09→17:01)
[2024-02-08] MEDS: oxyCODONE 10 MG TAB PO ×5 (00:09→20:26)
[2024-02-08 00:16] VITALS: BP 138/76; PULSE 92; RESP 20; TEMP 36.6; O2SAT 97
[2024-02-08] MEDS: HYDROmorphone 2 MG/ML SYR IVP ×5 (00:17→22:18)
[2024-02-08] MEDS: Methylphenidate 10 MG TAB 20 MG PO ×3 (04:57→17:02)
[2024-02-08 07:00] LABS: HCT 28.4 % (36.0-46.0); HGB 9.3 g/dL (11.2-15.7); MCH 29.1 pg (27.0-33.0); MCHC 32.7 % (32.0-36.0); MCV 89 fL (80-95); Platelet Count 449 10^3/uL (130-400); RDW 13.2 % (11.7-14.6); WBC 14.26 10^3/uL (4.4-10.8)
[2024-02-08 07:33] LABS: Anion Gap 5.2 mmol/L (3-11); BUN 14 mg/dL (7-18); CO2 32.8 mmol/L (21.0-32.0); CREATININE 0.8 mg/dL (0.55-1.02); Calcium 8.9 mg/dL (8.5-10.1); Chloride 96 mmol/L (98-107); Estimated GFR 90.27 (mL/min/1.73m2); Glucose 128 mg/dL (74-106); Potassium 3.2 mmol/L (3.5-5.1); Sodium 134 mmol/L (136-145)
[2024-02-08] MEDS: Nicotine 14 MG/24 HR PATCH TD (08:13)
[2024-02-08] MEDS: Gabapentin 300 MG CAP PO (08:13)
[2024-02-08] MEDS: DULoxetine 30 MG CAP 90 MG PO (08:13)
[2024-02-08] MEDS: Enoxaparin 40 MG/0.4 ML SYR SC (08:13)
[2024-02-08] MEDS: Protein Nutritional Supplement 16 GM 1 OUNCE PACKET PO ×3 (08:13→19:38)
[2024-02-08] MEDS: Prazosin 1 MG CAP PO ×2 (08:14→19:37)
[2024-02-08] MEDS: Acetaminophen 500 MG TAB 1000 MG PO ×3 (08:14→19:37)
[2024-02-08] MEDS: diazePAM 5 MG TAB PO ×3 (08:14→19:37)
[2024-02-08] MEDS: Pantoprazole 40 MG TABCR PO (08:14)
[2024-02-08] MEDS: Normal Saline Flush 10 ML SYR IVP ×3 (08:15→19:38)
--- NOTE | 2024-02-08 08:19 | W.PM.PROGNOT ---
Date of Service Date of service: 02/08/24 Time of Service: : Assessment and Plan Assessment and plan (1) Infection of prosthetic right knee joint: Status: Acute Assessment and plan: Post-op day #1 following Irrigation and debridement with synovectomy and polyethylene exchange with application of vacuum-assisted, JOHANNA, dressing - RIGHT knee. Pain challenges, but optimizing as best possible. Appropriately resuscitated after transfusion. Serial vital signs, trend labs. Continue antibiotics. Cultures presumptive positive MRSA. Lovenox as chemical DVT prophylaxis. Refugio bandage on the operative side. Contralateral side SCD and/or JULIO hose. Start physical therapy when more appropriate in a couple days. Appreciate medical comanagement. Discussed with Dr. Duvall. Subjective Subjective Interval history since last seen: Patient reports that she did not sleep well because of discomfort. She reports that she has been having significant muscle spasms about the knee which she also had with previous knee replacement surgery. She reports that she has been able to bear some weight with a walker which felt okay. Denies any calf pain. Denies any chest pain, shortness of breath, fever, or chills. Exam Narrative Exam Narrative: Patient resting in recliner with legs partially elevated. Refugio wrap on the right lower extremity from the thigh to the foot is clean and intact. Wiggles toes and demonstrates active dorsiflexion and plantarflexion. Demonstrates very limited active knee motion secondary to discomfort. Tolerates very limited passive knee motion secondary to discomfort. Calf is soft and nontender. Foot is warm and well-perfused with intact sensation to light touch. Objective Last Vital Signs Temp 97.9 F 02/08/24 00:16 Pulse 92 H 02/08/24 00:16 Resp 20 02/08/24 00:16 BP 138/76 02/08/24 00:16 Pulse Ox 97 02/08/24 00:16 Laboratory Results - last 24 hr 02/07/24 02/07/24 02/08/24 07:00 17:00 06:37 WBC 14.26 H RBC 3.20 L Hgb 6.8 L* 9.3 L D Hct 21.3 L 28.4 L MCV 89 MCH 29.1 MCHC 32.7 RDW 13.2 Plt Count 449 H MPV 9.0 Sodium 134 L Potassium 3.2 L Chloride 96 L Carbon Dioxide 32.8 H Anion Gap 5.2 BUN 14 Creatinine 0.8 Est GFR (CKD-EPI 2020) 90.27 Glucose 128 H Calcium 8.9 C-Reactive Protein 20.40 H ABO/Rh O Negative Antibody Screen NEGATIVE Crossmatch See Detail Time Spent with Patient Time Spent with Patient: <25 minutes Time was spent: preparing to see the patient(eg.review tests), ordering medications,tests, procedures, referring, communicating with other health managed care manager, indepentently interpreting results and counseling the patient
[2024-02-08] MEDS: Methadone Liquid 10 MG/ML 69 MG PO (08:26)
[2024-02-08] MEDS: cefTRIAXone 2 GM/50 ML BAG IVPB (14:06)
[2024-02-08 15:08] LABS: Vancomycin, Random 15.8 ug/mL
[2024-02-08 15:42] VITALS: BP 105/66; PULSE 85; RESP 18; TEMP 36.8; O2SAT 95
--- NOTE | 2024-02-08 17:19 | PDOC.CMPRO ---
Date of service: 02/08/24 Time of Service: 07:58 Care Management Progress Note Progress Note Text Progress Note Text: Up with FWW, mobility and sleep limited due to ongoing pain and discomfort. Awaiting ARINA updates related to insurance coverage, which may create barrier to discharge if long wall shear operator IV ABX treatment recommended. Discharge Potential Discharge Needs: Consult Consult Services Needed: Other (ARINA: Insurance ), Imaging/labs (Cultures presumptive positive MRSA), PT Evaluation (When medically stable. 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 CM will review the options with Rand if this is determined to be the plan. Her boyfriend, Jono, will drive her home via private. She will follow up with Ortho, her PCP and discharge plan of care. CM will continue to follow. SDOH(Care Management) Screening Will the Patient Participate in the Screening?: Unable to obtain Do you worry about having a steady place to live?: no Problems where you live: no known problems In the past 12 months, have you had to go without electric, gas, oil or water in your home?: no Have you or anyone in your house had to go without enough food to eat?: no Has lack of transportation kept you from medical appointments or from doing things needed for daily living?: yes Has anyone in your support network made you feel unsafe for any reason?: no Health Related Social Needs Health related social needs: transportation insecurity(Z59.82) Health related social needs details: Pt is having difficulty w/ transportation and insurance issues
[2024-02-08 19:29] VITALS: BP 118/79; PULSE 78; RESP 20; TEMP 36.8; O2SAT 97
[2024-02-09] MEDS: oxyCODONE 10 MG TAB PO ×5 (00:15→20:45)
[2024-02-09] MEDS: VANCOMYCIN/WATER (PEG) 1 GM/200 ML BAG IVPB ×3 (00:15→16:00)
[2024-02-09] MEDS: HYDROmorphone 2 MG/ML SYR IVP ×2 (02:30→22:17)
[2024-02-09 04:13] VITALS: BP 123/76; PULSE 87; RESP 16; TEMP 36.5; O2SAT 95
[2024-02-09] MEDS: Methylphenidate 10 MG TAB 20 MG PO ×3 (06:41→16:00)
[2024-02-09] MEDS: rifAMPin 300 MG CAP PO ×2 (06:41→20:46)
[2024-02-09 06:55] LABS: HCT 25.1 % (36.0-46.0); HGB 8.1 g/dL (11.2-15.7); MCH 28.9 pg (27.0-33.0); MCHC 32.3 % (32.0-36.0); MCV 90 fL (80-95); MPV 8.8 fL (8.0-11.0); Platelet Count 422 10^3/uL (130-400); RDW 13.3 % (11.7-14.6); WBC 10.63 10^3/uL (4.4-10.8)
[2024-02-09 07:08] LABS: Anion Gap 7.6 mmol/L (3-11); BUN 12 mg/dL (7-18); C-Reactive Protein 14.37 mg/dL (<or=0.5); CO2 30.4 mmol/L (21.0-32.0); CREATININE 0.7 mg/dL (0.55-1.02); Chloride 101 mmol/L (98-107); Estimated GFR 105.95 (mL/min/1.73m2); Glucose 102 mg/dL (74-106); Potassium 3.9 mmol/L (3.5-5.1); Sodium 139 mmol/L (136-145)
--- NOTE | 2024-02-09 07:26 | W.PM.PROGNOT ---
Date of Service Date of service: 02/09/24 Time of Service: 10:38 Assessment and Plan Assessment and plan (1) Does not have health insurance: Status: Acute (2) Infection of prosthetic right knee joint: Status: Acute Assessment and plan: Post-op day #2 following Irrigation and debridement with synovectomy and polyethylene exchange with application of vacuum-assisted, JOHANNA, dressing - RIGHT knee. Pain challenges, but optimizing as best possible. Appropriately resuscitated after transfusion. Serial vital signs, trend labs. Continue antibiotics. Cultures presumptive positive MRSA and GNR. Lovenox as chemical DVT prophylaxis. Refugio bandage on the operative side. Contralateral side SCD and/or JULIO hose. Start physical therapy when more appropriate in a couple days. Appreciate medical comanagement. Discussed with Dr. Duvall. Patient reports that her pain is well-controlled currently, slept better overnight. She does occasionally get some spasms but the Valium is helping with that. She continues to use both warm and cold compresses, states that the Cryo/Cuff does get tight at times and has been using ice packs. She is eager to begin physical therapy. She feels steadier with the walker today. Denies chest pain, shortness of breath, fever, chills, or calf pain. Patient resting in recliner with legs partially elevated. Refugio wrap on the right lower extremity from the thigh to the foot is clean and intact. Wiggles toes and demonstrates active dorsiflexion and plantarflexion. Demonstrates limited active knee motion secondary to discomfort. Tolerates limited passive knee motion secondary to discomfort. Calf is soft and nontender. Foot is warm and well-perfused with intact sensation to light touch. Reviewed with Dr. Duvall in the afternoon. Antibiotics will be tailored to the organisms. PICC line ordered for tomorrow. Start gentle physical therapy. Objective Last Vital Signs Temp 97.7 F 02/09/24 04:13 Pulse 87 02/09/24 04:13 Resp 16 02/09/24 04:13 BP 123/76 02/09/24 04:13 Pulse Ox 95 02/09/24 04:13 Laboratory Results - last 24 hr 02/08/24 02/08/24 02/09/24 06:37 14:30 06:35 WBC 10.63 RBC 2.80 L Hgb 8.1 L Hct 25.1 L MCV 90 MCH 28.9 MCHC 32.3 RDW 13.3 Plt Count 422 H MPV 8.8 Sodium 134 L 139 Potassium 3.2 L 3.9 Chloride 96 L 101 Carbon Dioxide 32.8 H 30.4 Anion Gap 5.2 7.6 BUN 14 12 Creatinine 0.8 0.7 Est GFR (CKD-EPI 2020) 90.27 105.95 Glucose 128 H 102 Calcium 8.9 9.0 C-Reactive Protein 20.40 H 14.37 H Random Vancomycin 15.8 Time Spent with Patient Time Spent with Patient: <25 minutes Time was spent: preparing to see the patient(eg.review tests), ordering medications,tests, procedures, referring, communicating with other health acute care registered nurse and care coordination
[2024-02-09 07:37] VITALS: BP 121/76; PULSE 89; RESP 18; TEMP 36.6; O2SAT 95
[2024-02-09] MEDS: diazePAM 5 MG TAB PO ×3 (08:10→20:45)
[2024-02-09] MEDS: DULoxetine 30 MG CAP 90 MG PO (08:10)
[2024-02-09] MEDS: Pantoprazole 40 MG TABCR PO (08:10)
[2024-02-09] MEDS: Gabapentin 300 MG CAP PO (08:11)
[2024-02-09] MEDS: Acetaminophen 500 MG TAB 1000 MG PO ×3 (08:11→20:46)
[2024-02-09] MEDS: Prazosin 1 MG CAP PO ×2 (08:11→20:47)
[2024-02-09] MEDS: Enoxaparin 40 MG/0.4 ML SYR SC (08:12)
[2024-02-09] MEDS: Nicotine 14 MG/24 HR PATCH TD (08:12)
[2024-02-09] MEDS: Normal Saline Flush 10 ML SYR IVP ×6 (08:12→23:51)
[2024-02-09] MEDS: Protein Nutritional Supplement 16 GM 1 OUNCE PACKET PO ×3 (08:13→20:47)
[2024-02-09] MEDS: Methadone Liquid 10 MG/ML 69 MG PO (08:42)
--- NOTE | 2024-02-09 13:07 | CMPROGNOTE_ITS ---
Date of service: 02/09/24 Time of Service: 13:11 Care Management Progress Note Progress Note Text Progress Note Text: Rand was sitting up in her chair when CM met with her. She stated that she is feeling better today, although she wasn't able to sleep well overnight. She stated that she spoke to [employer] yesterday over the phone, and is waiting to hear their determination. She stated that she is not currently working, and won't be for quite a while due to her surgery. Per MD, she will likely require usp IV antibiotics, although the course remains unclear. Rand is open to multiple options to have her IV abx, including home (which she prefers), in the infusion room, or to stay at [facility]. Her lack of insurance may be a barrier to her care. CM will continue to follow. Discharge Potential Discharge Needs: Consult, PT Evaluation, PCP F/U Appt and Other (potential usp IV abx) Anticipated Barriers to Discharge: Medical Status Patient/Family Education Needs: Review discharge instructions, discuss Ask Me Three Transportation: Private vehicle Plan: Rand may need usp IV antibiotics; course to be determined by MD. CM will review the options with Rand if this is determined to be the plan. Her boyfriend, Jono, will drive her home via private. She will follow up with Ortho, her PCP and discharge plan of care. CM will continue to follow. SDOH(Care Management) Screening Will the Patient Participate in the Screening?: Unable to obtain Do you worry about having a steady place to live?: no Problems where you live: no known problems In the past 12 months, have you had to go without electric, gas, oil or water in your home?: no Have you or anyone in your house had to go without enough food to eat?: no Has lack of transportation kept you from medical appointments or from doing things needed for daily living?: yes Has anyone in your support network made you feel unsafe for any reason?: no Health Related Social Needs Health related social needs: transportation insecurity(Z59.82) Health related social needs details: Pt is having difficulty w/ transportation and insurance issues
[2024-02-09] MEDS: cefTRIAXone 2 GM/50 ML BAG IVPB (14:13)
[2024-02-09 15:48] VITALS: BP 110/69; PULSE 84; RESP 18; TEMP 36.7; O2SAT 97
--- NOTE | 2024-02-09 16:39 | CHAPLAIN ---
Rand was up in the chair when I visited. She told me about her recent knee surgery, needed because she has MRSA in her knee so her knee replacement was redone and she is on IV antibiotics, she said. Rand lives in [place]. She expects her fiance to visit after work today. Rand was happy to talk about her grandchildren, from in the 20s to less than a year old. She is hoping to go to [place] to visit the youngest two, at her daughter's, when her infusion treatment is complete. She was frustrated today by not having a picc nurse for her phone. Rand said she's received good care here, and she's waiting to find out how she'll get the rest of her IV antibiotics. She was very pleasant and enjoyed describing her grandchildren. I explained my role and offered support.
[2024-02-09] MEDS: CEFEPIME 2 GM in Normal Saline 100 ML IVPB ×2 (17:39→23:50)
[2024-02-09 20:00] VITALS: BP 144/72; PULSE 90; RESP 20; TEMP 36.5; O2SAT 97
--- NOTE | 2024-02-09 21:00 | DI.RAD_ITS ---
Exam(s) XR PORTABLE CHEST AP POST LINE EXAM: XR PORTABLE CHEST AP POST LINE CLINICAL HISTORY: picc line placement TECHNIQUE: 2D digital imaging was performed. COMPARISON: No exams were available for comparison FINDINGS: Two images were obtained. The 1st image shows the tip of the PICC line to lie in the upper right atr ium. The 2nd image shows the tip to lie in the junction of the SVC and right atrium. LUNGS: Clear. No pleural abnormality seen. HEART: Normal size. AORTA: Normal diameter. BONES: Unremarkable for age. Soft tissues: Unremarkable. IMPRESSION: Satisfactory placement of PICC line DATA REPOSITORY: RADIATION DOSE DELIVERED:
[2024-02-09 21:45] VITALS: BP 131/69; PULSE 90; RESP 18; TEMP 37; O2SAT 96
--- NOTE | 2024-02-09 21:50 | DI.VRAD_ITS ---
PROCEDURE INFORMATION: Exam: XR Chest Exam date and time: 02/09/2024 9:15 PM Age: 49 years old Clinical indication: Device placement; Picc TECHNIQUE: Imaging protocol: Radiologic exam of the chest. Views: 1 view. COMPARISON: No relevant prior studies available. FINDINGS: Tubes, catheters and devices: A right PICC is in place. The tip is at the distal SVC level. Lungs: Unremarkable. No consolidation. Pleural spaces: Unremarkable. No pleural effusion. No pneumothorax. Heart/Mediastinum: Unremarkable. No cardiomegaly. Bones/joints: Unremarkable. IMPRESSION: No evidence for pneumothorax following PICC placement. Dictated and Authenticated by: Reva Hoyt MD. Ordering:SWETHA Frank MD
[2024-02-09 23:20] VITALS: BP 125/70; PULSE 93; RESP 18; TEMP 35.7; O2SAT 95
[2024-02-10] MEDS: VANCOMYCIN/WATER (PEG) 1 GM/200 ML BAG IVPB ×3 (00:46→19:52)
[2024-02-10] MEDS: Normal Saline Flush 10 ML SYR IVP ×6 (02:28→21:21)
[2024-02-10] MEDS: oxyCODONE 10 MG TAB PO ×3 (04:20→21:21)
[2024-02-10 06:28] LABS: HCT 26.3 % (36.0-46.0); HGB 8.4 g/dL (11.2-15.7); MCH 29.1 pg (27.0-33.0); MCHC 31.9 % (32.0-36.0); MCV 91 fL (80-95); MPV 8.5 fL (8.0-11.0); Platelet Count 416 10^3/uL (130-400); RBC 2.89 10^6/uL (3.93-5.22); RDW-SD 42.8 fL; WBC 9.38 10^3/uL (4.4-10.8)
[2024-02-10] MEDS: Pantoprazole 40 MG TABCR PO (06:30)
[2024-02-10] MEDS: Methylphenidate 10 MG TAB 20 MG PO ×3 (06:30→16:49)
[2024-02-10 06:39] LABS: Anion Gap 8.6 mmol/L (3-11); BUN 14 mg/dL (7-18); C-Reactive Protein 12.41 mg/dL (<or=0.5); CO2 29.4 mmol/L (21.0-32.0); CREATININE 0.7 mg/dL (0.55-1.02); Chloride 102 mmol/L (98-107); Estimated GFR 105.95 (mL/min/1.73m2); Glucose 113 mg/dL (74-106); Potassium 3.7 mmol/L (3.5-5.1); Sodium 140 mmol/L (136-145)
[2024-02-10] MEDS: HYDROmorphone 2 MG/ML SYR IVP ×2 (07:10→19:53)
[2024-02-10 08:19] VITALS: BP 134/81; PULSE 85; RESP 19; TEMP 36.4; O2SAT 98
[2024-02-10 08:32] LABS: Vancomycin, Random 19.4 ug/mL
[2024-02-10] MEDS: DULoxetine 30 MG CAP 90 MG PO (08:47)
[2024-02-10] MEDS: Gabapentin 300 MG CAP PO ×2 (08:47→19:53)
[2024-02-10] MEDS: diazePAM 5 MG TAB PO ×4 (08:48→19:54)
[2024-02-10] MEDS: Prazosin 1 MG CAP PO ×2 (08:48→19:54)
[2024-02-10] MEDS: rifAMPin 300 MG CAP PO ×2 (08:48→19:54)
[2024-02-10] MEDS: Acetaminophen 500 MG TAB 1000 MG PO ×3 (08:49→19:53)
[2024-02-10] MEDS: Enoxaparin 40 MG/0.4 ML SYR SC (08:50)
[2024-02-10] MEDS: Nicotine 14 MG/24 HR PATCH TD (08:51)
[2024-02-10] MEDS: Protein Nutritional Supplement 16 GM 1 OUNCE PACKET PO ×3 (08:51→19:53)
[2024-02-10] MEDS: Methadone Liquid 10 MG/ML 69 MG PO (08:55)
--- NOTE | 2024-02-10 09:59 | PGE_ITS ---
Date of Service Date of service: 02/10/24 Time of Service: 08:50 Assessment and Plan Assessment and plan (1) Infection of prosthetic right knee joint: Status: Acute Assessment and plan: Rand is a 49-year-old who has a complex infection about her right knee replacement. She now has 2 different organisms, MRSA and Pseudomonas. Both of these are very challenging to treat and to eradicate. We are trying to treat this with debridement and component retention given the low ESR, short duration of symptoms, and acuity. She is currently on vancomycin with appropriate trough levels as well as rifampin to assist with biofilm degradation. I did have her on ceftriaxone to cover any potential other Staph aureus or strep species with some anaerobic coverage. However, on day 2 she started growing a gram-negative pamella which looks to be Pseudomonas and thus I switched her to cefepime, 2 g every 8 hours. I will reach out to infectious disease at [facility] for further guidan ce as I await sensitivities on the Pseudomonas culture. However, this development precludes any discharge to home or other facility at this point. Is imperative that we await final cultures and sensitivities to best determine antibiotic regimen given the complexity of this case. We can start physical therapy. I want her to start work on isometric contractions of the quad. She may ambulate with a walker. She is to start work on gentle range of motion as tolerated. Given the stability of her labs we will check those every 2 to 3 days now. (2) Anemia: Status: Chronic Assessment and plan: Hemoglobin appears stable this morning. Vital signs are stable. We will continue to follow but most likely she has reached her jimmy. Subjective Subjective Interval history since last seen: Rand reports an overall to be doing better. She still has pain. She is most bothered by these intense cramping that she gets. She feels depressed about her overall situation and lack of progress. PICC line was placed yesterday. Antibiotics were switched yesterday with the new growth of Pseudomonas from 1 culture. Blood culture still negative. C-reactive protein continues to trend down. Vital signs stable. She does feel that her GI system is upset. She reports having diarrhea. She denies any significant cramping or malodorous bowel movement. Exam Narrative Exam Narrative: Sitting up in the chair. No acute distress. Alert and orient x 3. Somewhat depressed affect. Refugio wrap is removed from the right knee. There is areas of drainage about the middle portion of the yumiko dressing. Yumiko dressing still working. Hyperemia seen laterally more so than medially. Swelling within the leg itself seems to be coming down from the distal aspect. Still significant swelling about the knee. Unable to demonstrate a straight leg raise due to pain. She has intact ankle dorsiflexion and plantarflexion as well as great toe extension and flexion. Sensation intact to light touch over the median, radial, ulnar nerve. Objective Last Vital Signs Temp 36.4 C L 02/10/24 08:19 Pulse 85 02/10/24 08:19 Resp 19 02/10/24 08:19 BP 134/81 02/10/24 08:19 Pulse Ox 98 02/10/24 08:19 Laboratory Results - last 24 hr 02/10/24 06:02 WBC 9.38 RBC 2.89 L Hgb 8.4 L Hct 26.3 L MCV 91 MCH 29.1 MCHC 31.9 L RDW 13.0 Plt Count 416 H MPV 8.5 Sodium 140 Potassium 3.7 Chloride 102 Carbon Dioxide 29.4 Anion Gap 8.6 BUN 14 Creatinine 0.7 Est GFR (CKD-EPI 2020) 105.95 Glucose 113 H Calcium 9.0 C-Reactive Protein 12.41 H Random Vancomycin 19.4 Time Spent with Patient Time Spent with Patient: 25-34 minutes Time was spent: preparing to see the patient(eg.review tests), obtaining and/or reviewing separately otained hiistory, ordering medications,tests, procedures, indepentently interpreting results, counseling the patient and care coordination
[2024-02-10] MEDS: CEFEPIME 2 GM in Normal Saline 100 ML IVPB ×2 (11:12→17:58)
[2024-02-10] MEDS: Lactobacillus Acidophilus CAP 1 CAP PO ×2 (13:46→19:54)
--- NOTE | 2024-02-10 14:20 | CMPROGNOTE_ITS ---
Date of service: 02/10/24 Time of Service: 14:21 Care Management Progress Note Progress Note Text Progress Note Text: Rand was sitting up in her chair when CM met with her. She had just finished working with PT, who stated that she did very well and made a recommendation for outpatient PT. CM contacted Connie who reported that Rand's ADELAIDA is now active, and provided her acct number: [id number], which was updated on her chart. Per MD, waiting on final blood cultures in order to determine her antibiotic course, which will impact her discharge plan. Rand stated that she would prefer to have her IV antibiotics from home, but understands that she may need to remain at [facility] in swingbed, depending on her course and the cost of the home infusion. CM will continue to follow. Discharge Potential Discharge Needs: PT Evaluation and PCP F/U Appt Anticipated Barriers to Discharge: None Identified Patient/Family Education Needs: Review discharge instructions, discuss Ask Me Three Transportation: Private vehicle Plan: Rand may need watermaster IV antibiotics; course to be determined by MD. CM will review the options with Rand if this is determined to be the plan. Her boyfriend, Jono, will drive her home via private. She will follow up with Ortho, her PCP and discharge plan of care. CM will continue to follow. SDOH(Care Management) Screening Will the Patient Participate in the Screening?: Unable to obtain Do you worry about having a steady place to live?: no Problems where you live: no known problems In the past 12 months, have you had to go without electric, gas, oil or water in your home?: no Have you or anyone in your house had to go without enough food to eat?: no Has lack of transportation kept you from medical appointments or from doing things needed for daily living?: yes Has anyone in your support network made you feel unsafe for any reason?: no Health Related Social Needs Health related social needs: transportation insecurity(Z59.82) Health related social needs details: Pt is having difficulty w/ transportation and insurance issues
[2024-02-10 15:07] VITALS: BP 129/71; PULSE 90; RESP 18; TEMP 36.4; O2SAT 97
--- NOTE | 2024-02-10 15:41 | IN_ITS ---
PT Notes Visit Reasons: Infected right TKA Physical Therapy Inpatient Initial Evaluation Date: 02/10/2024 Referring Doctor: Zac Duvall MD PT Orders: PT CONSULT: S/P Ortho Surgery Precautions: Fall. Standard. WBAT on the R LE with AD. Patient Profile/Admitting Diagnosis: Rand is a 48-year-old female with degenerative joint disease of the right knee S/P R TKA on 01/11/2024 admitted on 02/07/2024 due to infected R knee joint/TKA. She is S/P irrigation and debridement with synovectomy and polyethelene exchange with vacuum assisted JOHANNA dressing on POD 3. PMHX: All Active Problems (Updated 02/07/24 @ 06:20 by Zac Duvall MD) Anemia (Chronic) Infection of prosthetic right knee joint (Acute) Hematoma of right knee region (Acute) Status post total right knee replacement (Acute 01/11/24) Hypertension (Chronic) GERD (gastroesophageal reflux disease) (Chronic) Medical History (Updated 02/07/24 @ 06:20 by Zac Duvall MD) Attention deficit disorder Heart murmur, systolic Pt. states she's been told she has one in the doctors office but never required any tx for it Xerosis of skin Gout Hyperlipidemia Sinusitis Migraine Depression Substance abuse Tobacco dependence Surgical History History of total left knee replacement (TKR) (09/27/17) History of hysterectomy History of cholecystectomy Social History/Home Situation: Lives with nirmal? in a private home with 4 steps to enter without rails. Ambulatory with use of bilateral axillary crutches indoors and outdoors. Was able to work with restrictions. Equipment Owned/DME: Bilateral axillary crutches Subjective: Stated that she has been doing some quad sets exercise and walking inside room using her walker from bed<>bedside recliner. Reported pain in R knee which Corina parikh was updated about. Complained about R knee being stiff Objective: General Observation: Seated on bedside chair. JOHANNA dressing in place. R LE girth greater than L. Erythema noted in R knee distal thigh and proximal knee. Mental Status: Alert and oriented as to person, place, time, and purpose. Able to pay attention, focus, and respond appropriately. Pain: 5-6/10 in R thigh and knee Vital Signs: Closely monitored by nursing staff ROM: Right Lower Extremity: Hip flexion allows up to 90 degrees. Hip abduction WFL. Knee flexion -30 to 90 degrees. Knee extension -30 degrees ankle dorsiflexion WFL. Ankle plantarflexion WFL. Left Lower Extremity: Hip flexion WFL. Hip abduction WFL. Knee flexion 10 degrees to 100. Knee extension -10 degrees ankle dorsiflexion WFL. Ankle plant arflexion WFL. Strength: Right Lower Extremity: Hip flexors 4/5. Hip abductors 4/5. Knee flexors 3-/5. Knee extensors 3-/5. Ankle dorsiflexors 4/5. Ankle plantarflexors 4/5. Left Lower Extremity:Hip flexors 4-/5. Hip abductors 4-/5. Knee flexors 3-/5. Knee extensors 3-/5. Ankle dorsiflexors 4-/5. Ankle plantarflexors 4-/5. Sensation: Intact as to pain and light pressure in bilateral lower extremities Bed Mobility/Transfers: Minimal cueing provided for use of B hands as needed for support, movement sequence, AD management, and posture to reduce fall risk and minimize pain report Sit to stand with independent with FWW Stand to sit with independent with FWW Bed to toilet seat independent with FWW Gait: Modified independent with all in-room ambulation using FWW if pain is well-managed. Understands that she may ask for help when she does not feel safe and when pain gets in the way. Balance: Static Sitting: Normal Dynamic Sitting: Good Static Standing: Fair Dynamic Standing: Fair Special Tests: Mobility Limitations Standardized Measure [facility] AM-PAC 6 clicks Basic Mobility Inpatient Short Form: Raw Score: 23 CMS Score: 11% deficit Informed Consent/Education: Patient was instructed in purpose of PT consult and plan of care. Agreeable to proceed with established PT POC to achieve personal goals. Trained patient with correct performance of exercises below to maximize motor control, joint flexibility, soft tissue extensibility of the R knee musculature: Access Code: [email or web address] URL: [email or web address] Date: 02/10/2024 Prepared by: Anastasiia Holder Exercises - Supine Quad Set - 1 x daily - 7 x weekly - 1 sets - 10 reps - 5 hold - Supine Heel Slide - 1 x daily - 7 x weekly - 1 sets - 10 reps - 5 hold - Supine Ankle Pumps - 1 x daily - 7 x weekly - 1 sets - 10 reps - 5 hold - Small Range Straight Leg Raise - 1 x daily - 7 x weekly - 1 sets - 10 reps - 5 hold DEFERRED for this session - Seated March - 1 x daily - 7 x weekly - 1 sets - 10 reps - 5 hold DEFERRED for this session Assessment: Patient will be monitored for exercise performance and overall response functional mobility performance. She will guided gradually through exercises that she can safely do at this time while ongoing MRSA and psuedomonas infection are being managed. Patient presents with clinical signs and symptoms consistent with current/admitting diagnoses that have resulted to mobility limitations, gait instability, generalized weakness, and overall ADL decline as demonstrated by the following impairment level findings: 1. Decreased strength to R hip and knee major muscle groups 2. Impaired sitting/standing balance 3. Impaired activity tolerance 4. Limitation of joint range of motion in R knee 5. Pain in R thigh and back of leg at 5-6/10 Impairments are contributing to the following functional limitations: 1. Increased completion time for mobility ADL performance 2. Increased risk for falls due to lfuctuating pain level 3. Difficulty with managing steps alone safely Patient is assessed as a 65032 moderate complexity based on the following: History: 48-year-old female with past medical history as indicated above Examination: Demonstrable impairment in strength, balance, and mobility level with underlying impairments and functional limitations as exhibited above as well as deficit score of 11% utilizing the [facility] Mobility Inpatient Short Form Presentation: Evolving Decision Makin moderate complexity Goals: Goals X1 week 1. Independent gait on level surface with use of FWW for at least 300 feet without report of pain nor dyspnea 2. Independent stair negotiation while holding onto no rails for at least 4 steps without report of pain nor dyspnea 3. Independent with home exercise program 4. Good static and dynamic standing balance/tolerance Plan of Care/Treatment Plan: 1x/day, 7 days/week x 1 week. Plan of care has been reviewed with the UNDERWRITING OPERATIONS MANAGER providing the service under Physical Therapy direction. Initiate Physical Therapy intervention for pain management as needed, strengthening, bed mobility, transfers, gait, stairs, balance training, and use of assistive device. DISCHARGE RECOMMENDATIONS: [] Home with no services [] Home with services [X] Home with outpatient PT whenever cleared by orthopedic surgeon. [] SNF for continued rehabilitation [] [] [facility] [] [] SNF versus LTC based on ability to participate and progress [] TREATMENT CODE/TIME: 24611 x 20 minutes for 1 unit, 26411 x 11 minutes for 1 unit(14:10-14:41). Thank you for the opportunity to participate in the care of this patient. Anastasiia Holder PT, DPT, CLT [facility] [place], [place]
[2024-02-10 18:03] LABS: C Diff PCR Negative (Negative)
[2024-02-10 19:50] VITALS: BP 129/88; PULSE 88; RESP 20; TEMP 36.5; O2SAT 99
[2024-02-10 23:25] VITALS: BP 136/77; PULSE 94; RESP 18; TEMP 36.2; O2SAT 97
[2024-02-11] MEDS: Normal Saline Flush 10 ML SYR IVP ×7 (00:06→21:39)
[2024-02-11] MEDS: HYDROmorphone 2 MG/ML SYR IVP ×3 (00:07→20:12)
[2024-02-11] MEDS: CEFEPIME 2 GM in Normal Saline 100 ML IVPB ×3 (01:29→17:28)
[2024-02-11] MEDS: VANCOMYCIN/WATER (PEG) 1 GM/200 ML BAG IVPB ×3 (04:41→20:11)
[2024-02-11] MEDS: oxyCODONE 10 MG TAB PO ×3 (05:53→21:44)
[2024-02-11] MEDS: Methylphenidate 10 MG TAB 20 MG PO ×3 (05:53→17:30)
[2024-02-11 07:01] LABS: Abs Immature Grans 0.28 10^3/uL (0.0-0.06); Absolute Basophil Count 0.05 10^3/uL (0.0-0.2); Absolute Lymphocyte Count 1.57 10^3/uL (1.2-3.4); Absolute Monocyte Count 0.95 10^3/uL (0.1-0.8); Absolute Neutrophil Count 6.25 10^3/uL (1.2-6.7); Basophils % 0.5 %; Eosinophils % 2.2 %; HGB 8.6 g/dL (11.2-15.7); Lymphocytes % 16.9 %; MCH 28.9 pg (27.0-33.0); MCHC 31.9 % (32.0-36.0); MCV 91 fL (80-95); MPV 8.5 fL (8.0-11.0); Monocytes % 10.2 %; Neutrophils % 67.2 %; Platelet Count 412 10^3/uL (130-400); RBC 2.98 10^6/uL (3.93-5.22); RDW-SD 42.6 fL
[2024-02-11 07:45] VITALS: BP 147/99; PULSE 98; RESP 16; TEMP 37.1; O2SAT 98
[2024-02-11] MEDS: Methadone Liquid 10 MG/ML 69 MG PO (08:48)
[2024-02-11] MEDS: Pantoprazole 40 MG TABCR PO (08:49)
[2024-02-11] MEDS: Nicotine 14 MG/24 HR PATCH TD (08:49)
[2024-02-11] MEDS: rifAMPin 300 MG CAP PO ×2 (08:49→20:14)
[2024-02-11] MEDS: Lactobacillus Acidophilus CAP 1 CAP PO ×3 (08:49→20:14)
[2024-02-11] MEDS: Prazosin 1 MG CAP PO ×2 (08:49→20:13)
[2024-02-11] MEDS: DULoxetine 30 MG CAP 90 MG PO (08:49)
[2024-02-11] MEDS: Acetaminophen 500 MG TAB 1000 MG PO ×3 (08:49→20:14)
[2024-02-11] MEDS: Protein Nutritional Supplement 16 GM 1 OUNCE PACKET PO ×3 (08:49→20:12)
[2024-02-11] MEDS: diazePAM 5 MG TAB PO ×4 (08:50→20:13)
--- NOTE | 2024-02-11 11:15 | RT.EKG_ITS ---
APPROVED REPORT Exam: Resting ECG Reason for Exam: Evaluate QTc Patient Location: I HR:83 bpm ECG Measurements Heart Rate 83 AXIS VT 145 P 50 QRSd 80 QRS 61 QT 381 T -36 QTc 448 Conclusion Sinus rhythm...normal P axis, V-rate 50- 99 Nonspecific T abnormalities, inferior leads...T <-0.10mV, II III aVF Baseline wander in lead(s) V2
--- NOTE | 2024-02-11 11:17 | PTTR_ITS ---
PT Notes Visit Reasons: Infected right TKA Date: 02/11/24 PRECAUTIONS: Fall. Standard. WBAT on the R LE with AD. SUBJECTIVE: Pt in recliner when approached for therapy this morning, Dr. Duvall doing a follow up with pt and indicated that pt is allowed to go out of her room for gait training. Nurse Ghassan also present and was able to cover pt right knee to prevent fluids from leaking from pt right knee OBJECTIVE: ? PAIN: achy incision site VITALS: Monitored by nursing? Therapeutic Activities 34850: Direct one-on-one instruction in dynamic activities to improve functional performance. ?? BED MOBILITY/TRANSFERS? Rolling L/R: Indpendent Supine-sit: ? independent? Sit-supine: ? independent? Sit-stand: ? supervision? Stand-sit: ?? supervision ? Bed-Chair:? ? supervision ? Chair-bed: supervision Provided skilled cues and instruction on performance and technique throughout. Gait Training 56923: Direct one-on-one instruction and skilled instruction in: Employing an assistive device Modified weight-bearing status Movement sequencing Turning and movement with proper form Provided verbal cues for equipment management and technique Provided instruction in gait pattern Patient education regarding pacing and breathing techniques to maximize activity tolerance? GAIT? Assistive Device: ??FWW ? Weight bearing: WBAT Assist: ? ?SBA ? Distance:?? ?200' hallway, 50'x4 inside pt room ? Deviation: ? ?Antalgic gait, gait asymmetry, stoop forward posture ? ? Therapeutic Exercises 57936: Direct one-on-one instruction in therapeutic exercises to develop strength, endurance, range of motion and flexibility. Exercises? Provided skilled instruction in proper exercise performance Provided skilled manual cues to facilitate proper muscle recruitment and/or form: Access Code: [email or web address] URL: [email or web address] Date: 01/14/2024 Prepared by: Bertrand Holder Exercises - Gluteal Sets - 1 x daily - 7 x weekly - 1 sets - 10 reps - 5 hold - Supine Heel Slide - 1 x daily - 7 x weekly - 1 sets - 10 reps - 5 hold - Supine Ankle Pumps - 1 x daily - 7 x weekly - 1 sets - 10 reps - 5 hold - Seated March - 1 x daily - 7 x weekly - 1 sets - 10 reps - 5 hold - Seated Long Arc Quad - 1 x daily - 7 x weekly - 1 sets - 10 reps - 5 hold ? ASSESSMENT:?tolerated activity well, reports pain felt decreased post therapy. pt provided with paper copy for guidance with HEP PLAN: Continue with balance training, global strengthening and general conditioning for improved safety, mobility and activity tolerance until pt is ready for DC. TREATMENT CODE/TIME: 60471t5, 24002s6 25mins (10:45-11:10am)
--- NOTE | 2024-02-11 11:31 | PGE_ITS ---
Date of Service Date of service: 02/11/24 Time of Service: 10:50 Assessment and Plan Assessment and plan (1) Infection of prosthetic right knee joint: Status: Acute Assessment and plan: Rand is POD#4 I&D and poly exchange of the right knee. Unfortunately, there is pseudomonas growing from one superficial culture. MRSA is being treated adequately with vancomycin. This could be switched to daptomycin on discharge. PICC line has been placed. Unfortunately, how to treat the Pseudomonas is challenging. Given her methadone use there is a risk of QT prolongation with fl uoroquinolones which would be ideal to target both Pseudomonas and the MRSA. GAUTAM's for both are quite low. I have reached out to [facility] infectious disease but unfortunate they are uncertain what the best neck step would be as well. I discussed the case briefly Dr. Castaneda. I will plan to check an EKG today to see what the current QT interval is for Rand. If it is within a normal range I think is reasonable to try the addition of for quinolones under supervision as a potential option for discharge. She does seem to making progress with the leg itself both with function and with the use of pain medications. She is now using significantly less pain medication which she was on admission although she still continues have pain, particular spasms posteriorly. The Valium at 4 times daily interval seems to be helping out. Will continue to trend CRP. I continue to appreciate pharmacy input with vancomycin dosing. I will also wait further consultation with [facility] infectious disease. (2) Anemia: Status: Chronic Assessment and plan: Hgb stable. Continue to follow. (3) Substance abuse: Assessment and plan: Chronic Methadone. Currently staying at 69mg. (4) Antibiotic-associated diarrhea: Status: Acute Assessment and plan: Improving. C-diff negative. Continue probiotic. Loperamide PRN. Subjective Subjective Interval history since last seen: Rand reports no fevers no chills. Her diarrhea seems to lessen. She does feel the pain is getting better. She has some drainage on the dressing and would like it to be removed. She denies any acute changes. No chest pain or shortness of breath. C. difficile testing was negative yesterday. Hemoccult was positive although no further blood per rectum. Exam Narrative Exam Narrative: Sitting up in the chair. No acute distress. Alert and oriented x 3. Dressing about the right knee is saturated with serous discharge. The dressing is removed. There is some hyperemia seen laterally about the knee. No significant expanding erythema. Edna are intact. There is a small amount of serous discharge from the distal third of the wound just intermittently without any direct skin openings. There are some skin slough present as well. Passively the knee has range of motion from about 10 to 90 degrees. Swelling seems to be coming down from previous examinations. Objective Last Vital Signs Temp 37.1 C 02/11/24 07:45 Pulse 98 H 02/11/24 07:45 Resp 16 02/11/24 07:45 BP 147/99 H 02/11/24 07:45 Pulse Ox 98 02/11/24 07:45 Laboratory Results - last 24 hr 02/10/24 02/11/24 17:01 06:30 WBC 9.30 RBC 2.98 L Hgb 8.6 L Hct 27.0 L MCV 91 MCH 28.9 MCHC 31.9 L RDW 13.0 Plt Count 412 H MPV 8.5 Immature Gran % 3.0 Neutrophils % 67.2 Lymphocytes % 16.9 Monocytes % 10.2 Eosinophils % 2.2 Basophils % 0.5 Nucleated RBC % 0.0 Absolute Neutrophils 6.25 Absolute Lymphocytes 1.57 Absolute Monocytes 0.95 H Absolute Eosinophils 0.20 Absolute Basophils 0.05 Stl C.difficile Tox PCR Negative Time Spent with Patient Time Spent with Patient: >50 minutes Time was spent: preparing to see the patient(eg.review tests), obtaining and/or reviewing separately otained hiistory, ordering medications,tests, procedures, referring, communicating with other health elderly caregiver, indepentently interpreting results and care coordination
[2024-02-11 16:18] VITALS: BP 133/74; PULSE 89; RESP 16; TEMP 36.8; O2SAT 96
[2024-02-11] MEDS: Gabapentin 300 MG CAP PO (20:13)
[2024-02-11] MEDS: Melatonin 3 MG TAB PO (23:03)
[2024-02-11 23:08] VITALS: BP 150/86; PULSE 93; RESP 16; TEMP 36.4; O2SAT 97
[2024-02-12] MEDS: Normal Saline Flush 10 ML SYR IVP ×7 (00:12→20:51)
[2024-02-12] MEDS: HYDROmorphone 2 MG/ML SYR IVP ×5 (00:13→20:51)
[2024-02-12] MEDS: CEFEPIME 2 GM in Normal Saline 100 ML IVPB ×3 (02:40→17:53)
[2024-02-12] MEDS: oxyCODONE 10 MG TAB PO ×4 (03:18→19:45)
[2024-02-12] MEDS: VANCOMYCIN/WATER (PEG) 1 GM/200 ML BAG IVPB ×3 (03:18→19:34)
[2024-02-12 08:00] VITALS: BP 127/60; PULSE 70; RESP 18; TEMP 37.1; O2SAT 99
[2024-02-12] MEDS: Protein Nutritional Supplement 16 GM 1 OUNCE PACKET PO ×3 (08:53→19:33)
[2024-02-12] MEDS: Acetaminophen 500 MG TAB 1000 MG PO ×3 (08:54→19:35)
[2024-02-12] MEDS: rifAMPin 300 MG CAP PO ×2 (08:54→19:34)
[2024-02-12] MEDS: diazePAM 5 MG TAB PO ×3 (08:55→19:34)
[2024-02-12] MEDS: Prazosin 1 MG CAP PO ×2 (08:55→19:35)
[2024-02-12] MEDS: Lactobacillus Acidophilus CAP 1 CAP PO ×3 (08:55→19:34)
[2024-02-12] MEDS: DULoxetine 30 MG CAP 90 MG PO (08:55)
[2024-02-12] MEDS: Pantoprazole 40 MG TABCR PO (08:55)
[2024-02-12] MEDS: Methadone Liquid 10 MG/ML 69 MG PO (09:13)
[2024-02-12] MEDS: Ciprofloxacin 500 MG TAB PO ×2 (14:10→19:51)
[2024-02-12] MEDS: Ciprofloxacin 250 MG TAB PO (14:10)
[2024-02-12 16:04] VITALS: BP 137/92; PULSE 88; RESP 16; TEMP 36.3; O2SAT 98
--- NOTE | 2024-02-12 18:00 | RT.EKG_ITS ---
APPROVED REPORT Exam: Resting ECG Reason for Exam: Timed for 1800 Patient Location: I HR:85 bpm ECG Measurements Heart Rate 85 AXIS NH 150 P 70 QRSd 91 QRS 4 QT 384 T 96 QTc 457 Conclusion Sinus rhythm...normal P axis, V-rate 50- 99 Nonspecific T abnormalities, lateral leads...T <-0.10mV, I aVL V5 V6
[2024-02-12 19:30] VITALS: BP 151/82; PULSE 90; RESP 20; TEMP 36.8; O2SAT 100
[2024-02-12] MEDS: Gabapentin 300 MG CAP PO (19:34)
--- NOTE | 2024-02-12 19:44 | PGE_ITS ---
Date of Service Date of service: 02/12/24 Time of Service: 15:30 Assessment and Plan Assessment and plan (1) Antibiotic-associated diarrhea: Status: Acute Assessment and plan: Improving. Continue probiotic. Loperamide as needed. (2) Anemia: Status: Chronic Assessment and plan: Stable. Asymptomatic. Continue to follow. (3) Infection of prosthetic right knee joint: Status: Acute Assessment and plan: Rand is currently on a regimen of cefepime as well as vancomycin. We will once again check inflammatory markers tomorrow. Unfortunately, infectious disease consultation by phone was of little help. I have reviewed the literature, educated myself as much as possible and discussed this with our hospitalist team. Given her desire to discharge from hospital cefepime is not an good option. Vancomycin may be transition to daptomycin from once a day dosing. PICC line is in place. Her current QTc is within normal limits despite her methadone and her antidepressant use. From what I can determine from the literature only a small subset of patients will have QT prolongation with coadministration of howie quinolones and the methadone. It is unclear at what point this risk will peak. However, we will try the ciprofloxacin in conjunction with serial EKG. I will reach out to pharmacy to determine when the max effect may likely occur. We will continue to follow this while she is in house as an inpatient. Hopefully within the next 48 hours we could discharge to home assuming she can tolerate this medication. As for the pain that she cu rrently is having mice dictation that this is normal pain from the surgeries. Is also because she is doing more with the knee. The spasms are hard to control. Will continue with the Valium but may need to consider other options as the Valium will likely loses efficacy for spasm control given duration of usage. Subjective Subjective Interval history since last seen: Rand continues to report some generalized improvement. However, she still is most bothered by posterior knee pain and cramping. I once again reached out to [facility] infectious disease who provided little input as to the current management of this complex problem. There is no disagreements with her current treatment plan and they offered no other alternatives. Rand denies any chest pain or shortness of breath. She denies fevers or chills. She continues to have some serous drainage from her wound. She has been able to ambulate. Diarrhea has improved. Exam Narrative Exam Narrative: Sitting up in the chair. No acute distress. Alert and orient x 3. Evaluation of the right knee shows passive extension to within 10 degrees. Flexion to about 90 degrees. There is no gross defect in the wound although there is a small amount of serous ooze from the wound. Hyperemia on the lateral side of the knee is stable. No expanding erythema. Time Spent with Patient Time Spent with Patient: 25-34 minutes Time was spent: obtaining and/or reviewing separately otained hiistory, ordering medications,tests, procedures, referring, communicating with other health patient care, counseling the patient and care coordination
[2024-02-12] MEDS: Aspirin E.C. 81 MG TABEC PO (19:50)
[2024-02-12] MEDS: Melatonin 3 MG TAB PO (23:21)
[2024-02-13] MEDS: oxyCODONE 10 MG TAB PO ×5 (00:01→21:57)
[2024-02-13] MEDS: Normal Saline Flush 10 ML SYR IVP ×7 (01:33→19:36)
[2024-02-13] MEDS: HYDROmorphone 2 MG/ML SYR IVP ×3 (01:33→09:54)
[2024-02-13] MEDS: diazePAM 5 MG TAB PO ×3 (01:34→17:01)
[2024-02-13] MEDS: VANCOMYCIN/WATER (PEG) 1 GM/200 ML BAG IVPB (04:21)
--- NOTE | 2024-02-13 06:00 | RT.EKG_ITS ---
APPROVED REPORT Exam: Resting ECG Reason for Exam: Monitoring QTc interval Patient Location: I HR:80 bpm ECG Measurements Heart Rate 80 AXIS OH 158 P 52 QRSd 90 QRS 5 QT 384 T 100 QTc 443 Conclusion Sinus rhythm...normal P axis, V-rate 50- 99 Normal Electrocardiogram
[2024-02-13 06:30] LABS: HCT 28.1 % (36.0-46.0); MCH 28.9 pg (27.0-33.0); MCV 90 fL (80-95); MPV 8.5 fL (8.0-11.0); Platelet Count 433 10^3/uL (130-400); RBC 3.11 10^6/uL (3.93-5.22); RDW 13.1 % (11.7-14.6); RDW-SD 43.3 fL; WBC 11.54 10^3/uL (4.4-10.8)
[2024-02-13 06:33] LABS: ESR 52 mm/hr (0-20)
[2024-02-13 06:56] LABS: C-Reactive Protein 4.75 mg/dL (<or=0.5)
[2024-02-13 07:15] VITALS: BP 131/77; PULSE 85; RESP 16; TEMP 36.9; O2SAT 99
[2024-02-13] MEDS: rifAMPin 300 MG CAP PO ×2 (07:47→19:37)
[2024-02-13] MEDS: Acetaminophen 500 MG TAB 1000 MG PO ×3 (07:47→19:37)
[2024-02-13] MEDS: Protein Nutritional Supplement 16 GM 1 OUNCE PACKET PO ×3 (07:47→19:36)
[2024-02-13] MEDS: DULoxetine 30 MG CAP 90 MG PO (07:47)
[2024-02-13] MEDS: Pantoprazole 40 MG TABCR PO (07:47)
[2024-02-13] MEDS: Prazosin 1 MG CAP PO ×2 (07:48→19:38)
[2024-02-13] MEDS: Lactobacillus Acidophilus CAP 1 CAP PO ×3 (07:48→19:37)
[2024-02-13] MEDS: Aspirin E.C. 81 MG TABEC PO ×2 (07:48→19:38)
[2024-02-13] MEDS: Ciprofloxacin 250 MG TAB PO ×2 (08:24→19:37)
[2024-02-13] MEDS: Methadone Liquid 10 MG/ML 69 MG PO (08:24)
[2024-02-13] MEDS: Ciprofloxacin 500 MG TAB PO ×2 (08:24→19:37)
[2024-02-13 08:33] LABS: Anion Gap 9.8 mmol/L (3-11); BUN 12 mg/dL (7-18); CO2 29.2 mmol/L (21.0-32.0); CREATININE 0.8 mg/dL (0.55-1.02); Calcium 9.6 mg/dL (8.5-10.1); Chloride 103 mmol/L (98-107); Estimated GFR 90.27 (mL/min/1.73m2); Glucose 114 mg/dL (74-106); Magnesium 1.9 mg/dL (1.8-2.4); Potassium 3.8 mmol/L (3.5-5.1); Sodium 142 mmol/L (136-145)
--- NOTE | 2024-02-13 09:01 | NUR.NOTE ---
Nursing Note: Handoff given to Ammy. Denied any questions.
--- NOTE | 2024-02-13 09:38 | PDOC.CMPRO ---
Date of service: 02/13/24 Time of Service: 09:38 Care Management Progress Note Progress Note Text Progress Note Text: Rand was sitting up in her chair when CM met with her. She stated that she is doing well, and she spoke to MD today who stated that she will start a course of IV antibiotics once a day, along with oral antibiotics. CM sent orders to [facility] and [facility] to provide options for home IV antibiotic therapy. If this is covered, Rand will return home tomorrow after receiving her IV abx dose, and will start her home IV abx on Tuesday with the support of [facility] [place]. She is happy with this plan, but also understands that if there is a copay that she cannot afford, or any other barriers that present, she has the option of going to the infusion room in [place] daily. CM will continue to follow. Discharge Potential Discharge Needs: Surgical F/U Appt Anticipated Barriers to Discharge: Medical Status Patient/Family Education Needs: Review discharge instructions, discuss Ask Me Three Transportation: Private vehicle Plan: Rand may need [facility] IV antibiotics; course to be determined by MD. CM will review the options with Rand if this is determined to be the plan. Her boyfriend, Jono, will drive her home via private. She will follow up with Amandeep, her PCP and discharge plan of care. CM will continue to follow. SDOH(Care Management) Screening Will the Patient Participate in the Screening?: Unable to obtain Do you worry about having a steady place to live?: no Problems where you live: no known problems In the past 12 months, have you had to go without electric, gas, oil or water in your home?: no Have you or anyone in your house had to go without enough food to eat?: no Has lack of transportation kept you from medical appointments or from doing things needed for daily living?: yes Has anyone in your support network made you feel unsafe for any reason?: no Health Related Social Needs Health related social needs: transportation insecurity(Z59.82) Health related social needs details: Pt is having difficulty w/ transportation and insurance issues Anticipated HH Services Anticipated HH Services at [facility] ([facility] [place]) Services Needed (new HH RN).
[2024-02-13] MEDS: Cyclobenzaprine 10 MG TAB PO ×2 (09:54→19:38)
--- NOTE | 2024-02-13 11:59 | PTTR_ITS ---
PT Notes Visit Reasons: Infected right TKA Inpatient Physical Therapy Treatment Note Date: 02/13/24 PRECAUTIONS: Fall.?Standard.?Activity as tolerated. Contact Precaustions for MRSA. SUBJECTIVE: Rand reports doing well. Pain is 7/10 in right knee. Working on exercises and light ROM. Tight in right posterior thigh. OBJECTIVE:? Therapeutic Activities (66788): Direct one-on-one instruction in dynamic activities to improve functional performance: 26 minutes Provided skilled cues and instruction on performance and technique throughout. ? ? ? Brief review of HEP Seated knee flexion AAROM self assist In recliner, passive right knee flexion ROM Discussed holding behind thigh and bringing toward chest to allow passive flexion Instructed in retro strep for quad activation closed chain BED MOBILITY/TRANSFERS? Sit-stand: Independent Stand-sit: Independent ? GAIT? Assistive Device: FWW ? Weight bearing: WBAT Assist: Independent Distance:? 300ft Deviation: decreased phuong, minimal right knee flexion ASSESSMENT:?Independent with mobility. Her right knee ROM is approximately 10-70 degrees by time done with stretching. Not formally measured. PLAN: Cont with right knee flexion ROM TREATMENT CODE/TIME: 11:30-11:56 (26 minutes) [id number] Ines Robledo, PT, DPT, OCS [facility], [place]
[2024-02-13 15:11] VITALS: BP 146/79; PULSE 90; RESP 17; TEMP 36.9; O2SAT 99
[2024-02-13] MEDS: Magnesium Oxide 400 MG TAB PO (17:01)
--- NOTE | 2024-02-13 18:00 | RT.EKG_ITS ---
APPROVED REPORT Exam: Resting ECG Reason for Exam: jose gal QTc - around 1800 Patient Location: I HR:90 bpm ECG Measurements Heart Rate 90 AXIS MD 157 P 63 QRSd 81 QRS 0 QT 376 T 104 QTc 461 Conclusion Sinus rhythm...normal P axis, V-rate 60- 99 Nonspecific T abnormalities, lateral leads...T <-0.10mV, I aVL V5 V6
--- NOTE | 2024-02-13 18:25 | PGE_ITS ---
Date of Service Date of service: 02/13/24 Time of Service: 12:50 Assessment and Plan Assessment and plan (1) Antibiotic-associated diarrhea: Status: Acute Assessment and plan: Improving. Continue probiotic. Loperamide as needed. (2) Anemia: Status: Chronic Assessment and plan: Stable and continues to improve. Asymptomatic. Continue to follow. (3) Infection of prosthetic right knee joint: Status: Acute Assessment and plan: Rand continues to tolerate antibiotics well. So far she has had no significant change in her QTc interval after the start of ciprofloxacin. She had no significant change with her mental status or increased respiratory depression from potential decreased clearance of methadone. She is anxious to return home soon as possible. Therefore, I will switch her over to daptomycin, with a goal of about 8 mg/kg, and 850 cc daily. We will start that today. Will continue the ciprofloxacin checking EKG prior to the next doses. I will start cyclobenzaprine to help out the muscle spasms. Will continue with the Valium but will slowly start to titrate down off this medication although Rand finds it helpful for her anxiety. We may since the dressing to a gauze and tape dressing. She seems to fill up the Mepilex dressing relatively quickly with her serous drainage and does not like the contact of the dressing on the skin with a mitesh dressing. She may shower. Weightbearing as tolerated. Continue PT. Subjective Subjective Interval history since last seen: In general, Rand reports be doing well. She does complain of some pain which is mostly posterior. She has had some increasing cramping and therefore I star val her on cyclobenzaprine which she thinks is helpful. Her vital signs been stable. She denies any chest pain or shortness of breath. Serial repeat EKGs have been obtained due to concern for potential QTc prolongation. These have otherwise been stable. Diarrhea is improved. Exam Narrative Exam Narrative: Sitting up in the chair. NAD. AAOx3. RLE with swelling. Dressing has serous discharge on it. ROM 10-80. No errythema. +ADF/APF/EHL/FHL. SILT DP/SP/Tib. Objective Last Vital Signs Temp 36.9 C 02/13/24 15:11 Pulse 90 02/13/24 15:11 Resp 17 02/13/24 15:11 BP 146/79 H 02/13/24 15:11 Pulse Ox 99 02/13/24 15:11 Laboratory Results - last 24 hr 02/13/24 06:10 WBC 11.54 H RBC 3.11 L Hgb 9.0 L Hct 28.1 L MCV 90 MCH 28.9 MCHC 32.0 RDW 13.1 Plt Count 433 H MPV 8.5 ESR 52 H Sodium 142 Potassium 3.8 Chloride 103 Carbon Dioxide 29.2 Anion Gap 9.8 BUN 12 Creatinine 0.8 Est GFR (CKD-EPI 2020) 90.27 Glucose 114 H Calcium 9.6 Magnesium 1.9 C-Reactive Protein 4.75 H Time Spent with Patient Time Spent with Patient: 25-34 minutes Time was spent: preparing to see the patient(eg.review tests), obtaining and/or reviewing separately otained hiistory, indepentently interpreting results and counseling the patient
[2024-02-13 19:30] VITALS: BP 148/84; PULSE 91; RESP 20; TEMP 36.4; O2SAT 96
[2024-02-13] MEDS: Gabapentin 300 MG CAP PO (19:38)
[2024-02-13] MEDS: Melatonin 3 MG TAB PO (20:51)
[2024-02-13] MEDS: ALPRAZolam 0.5 MG TAB PO (21:57)
[2024-02-13 23:40] VITALS: BP 151/79; PULSE 95; RESP 19; TEMP 36.7; O2SAT 99
[2024-02-14] MEDS: Cyclobenzaprine 10 MG TAB PO ×3 (00:29→13:01)
[2024-02-14] MEDS: ALPRAZolam 0.5 MG TAB PO (00:29)
[2024-02-14] MEDS: oxyCODONE 10 MG TAB PO ×3 (01:33→15:28)
[2024-02-14] MEDS: diazePAM 5 MG TAB PO ×3 (01:34→17:05)
[2024-02-14] MEDS: Normal Saline Flush 10 ML SYR IVP ×4 (02:31→17:05)
[2024-02-14] MEDS: HYDROmorphone 2 MG/ML SYR IVP ×3 (02:32→17:06)
--- NOTE | 2024-02-14 06:00 | RT.EKG_ITS ---
APPROVED REPORT Exam: Resting ECG Reason for Exam: meds with QTC prologation Patient Location: I HR:93 bpm ECG Measurements Heart Rate 93 AXIS NV 160 P 64 QRSd 79 QRS -1 QT 374 T 113 QTc 465 Conclusion Sinus rhythm...normal P axis, V-rate 60- 99 Probable left atrial enlargement...P >50mS, <-0.10mV V1 Nonspecific T abnormalities, lateral leads...T <-0.10mV, I aVL V5 V6
[2024-02-14] MEDS: Pantoprazole 40 MG TABCR PO (06:36)
[2024-02-14 06:37] LABS: Abs Immature Grans 0.34 10^3/uL (0.0-0.06); Absolute Basophil Count 0.11 10^3/uL (0.0-0.2); Absolute Eosinophil Count 0.18 10^3/uL (0.0-0.7); Absolute Lymphocyte Count 2.52 10^3/uL (1.2-3.4); Absolute Monocyte Count 1.06 10^3/uL (0.1-0.8); Absolute Neutrophil Count 7.84 10^3/uL (1.2-6.7); Basophils % 0.9 %; Eosinophils % 1.5 %; HCT 31.2 % (36.0-46.0); Immature Grans % 2.8 %; Lymphocytes % 20.9 %; MCH 28.8 pg (27.0-33.0); MCHC 32.1 % (32.0-36.0); MCV 90 fL (80-95); MPV 8.6 fL (8.0-11.0); Monocytes % 8.8 %; Neutrophils % 65.1 %; Platelet Count 436 10^3/uL (130-400); RBC 3.47 10^6/uL (3.93-5.22); RDW 13.2 % (11.7-14.6); RDW-SD 42.5 fL; WBC 12.05 10^3/uL (4.4-10.8)
--- NOTE | 2024-02-14 06:45 | W.PM.DS.N ---
Date of service: 02/14/24 Time of Service: 10:37 DS: Diagnosis Discharge Diagnosis (1) Antibiotic-associated diarrhea: Status: Acute (2) Anemia: Status: Chronic (3) Infection of prosthetic right knee joint: Status: Acute (4) Substance abuse: (5) Anxiety as acute reaction to exceptional stress: Status: Acute Discharge Plan Disposition Patient Disposition: Home W/Home Health Services Condition: Stable Discharge Details Reason For Visit: Infected right TKA Admit Date/Time: 02/06/24 13:52 Admit Provider: Zac Duvall Attending Provider: Zac Duvall Primary Care Provider: Nghia Ayala Hospital Course Hospital Course: Rand is admitted directly to the medical surgical floor for an infected right total knee replacement. She was to surgery on hospital day #2 for an aggressive synovectomy, irrigation debridement, polyethylene exchange. She was started on vancomycin for known MRSA cultures from the aspiration. She was also kept on ceftriaxone to cover strep and staph species not covered by vancomycin. On postop day #3, the superficial culture became positive for Pseudomonas. She was thus switched to cefepime 2 g every 8 hours. She tolerated this regimen well. She had no notable complications with the antibiotic regimen except for 1 to 2 days of diarrhea which was C. difficile negative and improved on its own with probiotics. Her pain slowly improved and she was able to ambulate independently within her room and in the hallway. She continued to have serous drainage from the wound but without any purulence. She did not tolerate the vacuum-assisted dressing and was transitioned to a gauze and tape dressing. She went to physical therapy. She had issues with anxiety surrounding the hospitalization, her knee, and pain. In discussion with hospitalist and infectious disease at [facility], transition to ciprofloxacin was made as well as daptomycin. Due to interactions with methadone, she was followed with regular magnesium testing as well as serial EKGs. This potential complication of QTc prolongation was discussed at length with Rand. I also involve the pharmacy team. There was little data to go on as far as adequate monitoring. Rand was quite insistent that she did not want to stay in the hospital which thus made administration of IV Pseudomonas treatment impossible. EKG did show some slight prolongation of the QTc interval however, it was slight and without any other symptoms. She was observed for 2 days on ciprofloxacin. She also did not exhibit any concerns for decreased metabolism of the methadone. Unfortunately, towards the end of the hospitalization she had increasing anxiety requiring the diazepam as well as alprazolam. Her C-reactive protein continued to decrease down to 3 from 22. Her vital signs are stable. She tolerated the regimen of daptomycin, rifampin, and ciprofloxacin. Her pain management was challenging throughout but was relatively stable on 20 mg of oxycodone. Home Meds and New Rx's Prescriptions: New rifampin 300 mg Capsule 300 mg PO BID Qty: 80 0RF magnesium oxide 400 mg (241.3 mg magnesium) Tablet 400 mg PO BID PRNQty: 28 0RF daptomycin 350 mg Recon Soln 850 mg IVPB Q24H Qty: 0 0RF ciprofloxacin HCl 750 mg tablet 750 mg PO BID Qty: 60 6RF aspirin 81 mg tablet,delayed release (DR/EC) 81 mg PO BID Qty: 28 0RF diazepam 5 mg tablet 5 mg PO TID PRN (Reason: anxiety and spasm) Qty: 21 0RF Continued methadone 40 mg tablet,soluble 69 mg PO DAILY methylphenidate HCl [Ritalin] 20 mg tablet 20 mg PO TID Patient Comments: Likes to take all doses before 1600 prazosin 1 mg capsule 1 mg PO BID duloxetine [Cymbalta] 30 mg capsule,delayed release(DR/EC) 90 mg PO DAILY acetaminophen 500 mg tablet 1,000 mg PO Q8H PRN (Reason: pain) Qty: 90 3RF pantoprazole 40 mg Tablet,Delayed Release (Dr/Ec) 40 mg PO DAILY@0730 Qty: 30 0RF oxycodone 20 mg tablet 20 mg PO Q4H MDD 6 tabs PRN (Reason: pain) Qty: 42 0RF Discontinued gabapentin 300 mg capsule 300 mg PO DAILY methocarbamol 750 mg Tablet 750 mg PO QID Qty: 40 1RF diazepam 5 mg tablet 5 mg PO BID MDD 2 tabs PRN (Reason: anxiety and pain) Qty: 14 0RF No Action albuterol sulfate [ProAir HFA] 90 mcg/actuation HFA aerosol inhaler 2 puff inhalation Q6H PRN Discharge Instructions Additional Instructions: Total Knee Discharge Instructions Activity: The most important activity is to walk and to work on gentle motion (both flexion and extension). You should try to take short walks a few times a day. It is important that when resting you work on keeping the knee straight. Work on range of motion exercises as provided by Physical Therapy. - Start outpatient physical therapy within 2 weeks. - Utilize [employer] to review exercises, see videos on exercises and obtain basic information pertaining to your surgery and your recovery. Dressing: Continue to keep the wound covered most of the time with gauze, absorbant pad, and tape as preferred. You may remove this for showering hygiene. You may leave it open to the air for a short period of time but otherwise should be covered. Medications: - You should take Tylenol and use her baseline methadone as primary pain control medications. - You have been prescribed a stronger pain medication Oxycodone for breakthrough pain, take as needed as prescribed. - You have also been prescribed a stomach acid reduction agent Pantoprozole to help reduce stomach acid and reflux. - Diazepam 5 mg up to 3 times daily has been prescribed for anxiety and spasms. We will slowly titrate off this medication. - You will be taking Aspirin 81mg twice a day for DVT prevention unless instructed otherwise. ---ANTIBIOTICS: - Daptomycin: 850mg administered in your PICC line daily. - Rifampin: 300mg twice a day. You may also take these at the same time if you'd prefer. This will turn your urine and tears orange. - Ciprofloxacin: 750mg twice a day. Take at least 2 hours before or 6 hours after multivitamin,iron, zinc, or antacids containing calcium, magnesium or aluminum. Do not take with milk, yogurt, or calcium-fortified juice . - You will also need to take Magnesium supplementation as prescribed. This will be monitored and adjusted as needed based on labs. - It is recommended to take a probiotic or at least consume yogurt frequently to help with bacterial recolonization of your GI tract. If you begin to have frequent malodorous diarrhea, you should call Dr. Duvall's office or present to the local emergency department. Follow-up: 7-10 days If you have any acute concerns or questions, please do not hesitate to contact the office at [phone]. You may contact Dr. Duvall with any questions after hours through the hospital at [phone] or on his cell phone at [phone]. 1. Encounter Date and Reason I certify that Rand Gallego was seen by Zac Duvall MD on 02/14/24 and that I had a [id number] encounter with this patient that meets the physician face to face encounter requirements. 2. Clinical Findings Supporting Skilled Need and Homebound Status I certify that home health services are medically necessary, include either intermittent alf and/or physical/speech therapy, and that this patient is homebound in that absences from the home require considerable and taxing effort and are infrequent or of short duration, or are attributable to the need to receive medical care. [X] (a) Attached documentation from encounter provides clinical findings supporting skilled need and homebound status (including what assistance patient requires to leave the home). The encounter with the patient was in whole, or in part, for the following medical condition, which is the primary reason for home health care: Infected right TKA [facility]: Rand will benefit from home health nursing due to multiple medications with known interactions and a complex pain background. She will be administered IV antibiotics for 6 weeks in addition to other oral agents. Physical Therapy: Rand will benefit from home health physical therapy to assist with independent ambulation, strengthening, and range of motion. Speech Therapy: Homebound: Rand is unable to leave her home unassisted due to notable weakness and gait abnormalities following infection of a total knee 3. Certification and Authentication I certify that I composed the above information based on my clinical judgement relating to this patient's medical condition and, if applicable, clinical findings communicated to me by the NPP or inpatient physician who performed the Home Health Referral. All further orders will be obtained through Dr. Duvall. Referrals: Zac Duvall MD [ [facility] STAFF PHYSICIAN] - Activity:: Activity as Tolerated Equipment/Supplies:: No Equipment Needed Diet:: As Tolerated Discharge Orders Discharge Orders: Discharge Order (Routine); Ordered 02/14/24 Ordered By: Zac Duvall DS: Summary Time Spent with Patient providing and/or coordinating discharge services: Less than 30 minutes Status at Discharge Functional status at discharge: uses cane/walker Overall status at discharge: patient is not back to baseline Mental Status: mental status grossly normal Speech and Movement: speech and movement normal Mood: congruent mood Affect: normal affect Quality:SDOH Health Related Social Needs: Health related social needs transpo insecurity Health related social needs details Pt is having difficulty w/ transportation and insurance issues Health related social needs details: Pt is having difficulty w/ transportation and insurance issues Exam Narrative Exam Narrative: Sitting up in the chair. Anxious but in no acute distress. Alert and orient x 3. Evaluation the right knee shows a well-approximated incision. [place] are intact. No significant erythema. Serous drainage from the distal third of the wound. Intact ankle dorsiflexion, ankle plantarflexion, EHL, FHL. Sensation intact to light touch of the deep and superficial peroneal nerve and tibial nerve. Psych Mental Status: mental status grossly normal Speech and Movement: speech and movement normal Mood: congruent mood Affect: normal affect DS: Data Vitals/I&O Vitals and I&O: Vital Signs Temperature 36.7 C 02/13/24 23:40 Temperature Source Tympanic 02/13/24 23:40 Pulse 95 H 02/13/24 23:40 Pulse Rhythm Regular 02/13/24 19:30 Respiratory Rate 19 02/13/24 23:40 Respiratory Effort Normal, Non-Labored 02/13/24 19:30 Respiratory Depth Normal 02/13/24 19:30 Respiratory Pattern Normal 02/13/24 19:30 Blood Pressure 151/79 H 02/13/24 23:40 Pulse Oximetry 99 02/13/24 23:40 Respiratory End-tidal CO2 30 02/07/24 11:15 Oxygen Delivery Method Room Air 02/13/24 23:40 Oxygen Flow Rate 0 02/13/24 23:40 Pain Level 6 02/14/24 06:10 Intake & Output 02/13/24 02/13/24 02/14/24 11:59 23:59 11:59 Intake Total 200 / 750 550 / 750 Balance 200 / 750 550 / 750 Weight 108.9 kg Intake: IV 200 / 250 50 / 250 Oral 500 / 500 Other: Comment pT stated that she voided. Independent. Voiding Methods Toilet Toilet Data Completed and Pending Labs on day of discharge: Labs from last 24 hours 02/14/24 02/14/24 02/13/24 05:54 05:54 06:10 WBC 12.05 H 11.54 H RBC 3.47 L 3.11 L Hgb 10.0 L 9.0 L Hct 31.2 L 28.1 L MCV 90 90 MCH 28.8 28.9 MCHC 32.1 32.0 RDW 13.2 13.1 Plt Count 436 H 433 H MPV 8.6 8.5 Immature Gran % 2.8 Neutrophils % 65.1 Lymphocytes % 20.9 Monocytes % 8.8 Eosinophils % 1.5 Basophils % 0.9 Nucleated RBC % 0.0 Absolute Neutrophils 7.84 H Absolute Lymphocytes 2.52 Absolute Monocytes 1.06 H Absolute Eosinophils 0.18 Absolute Basophils 0.11 ESR 52 H Sodium Pending 142 Potassium Pending 3.8 Chloride Pending 103 Carbon Dioxide Pending 29.2 Anion Gap Pending 9.8 BUN Pending 12 Creatinine Pending 0.8 Est GFR (CKD-EPI 2020) Pending 90.27 Glucose Pending 114 H Calcium Pending 9.6 Magnesium Cancelled Pending 1.9 Total Bilirubin Pending AST Pending ALT Pending Alkaline Phosphatase Pending C-Reactive Protein Pending 4.75 H Total Protein Pending Albumin Pending Preliminary micro results at discharge 02/07/24 08:15 Surgical Culture - Preliminary Knee - Right Staph aureus, MRSA 02/07/24 08:05 Surgical Culture - Preliminary Knee - Right Staph aureus, MRSA 02/07/24 08:02 Surgical Culture - Preliminary Knee - Right Staph aureus, MRSA Pseudomonas aeruginosa 02/07/24 08:15 Anaerobic Culture - Preliminary Knee - Right 02/07/24 08:12 Anaerobic Culture - Preliminary Knee - Right 02/07/24 08:05 Anaerobic Culture - Preliminary Knee - Right 02/07/24 08:02 Anaerobic Culture - Preliminary Knee - Right 02/07/24 08:12 Surgical Culture - Preliminary Knee - Right Staph aureus, MRSA PFSH All Active Problems Anxiety as acute reaction to exceptional stress (Acute) Antibiotic-associated diarrhea (Acute) Does not have health insurance (Acute) Anemia (Chronic) Infection of prosthetic right knee joint (Acute) Status post total right knee replacement (Acute 01/11/24) Hypertension (Chronic) GERD (gastroesophageal reflux disease) (Chronic) Medical History Attention deficit disorder Heart murmur, systolic Pt. 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 01/27/24: smoked 2 cigarettes prior to DSU 01/27/24: pt reports pain in back, difficulty lying flat, sleeps in a recliner. Housing: house Do you feel safe in your relationship?: Yes Time Spent with Patient Time Spent with Patient: 45-69 minutes Time was spent: preparing to see the patient(eg.review tests), obtaining and/or reviewing separately otained hiistory, referring, communicating with other health family day care provider, indepentently interpreting results, counseling the patient and care coordination
[2024-02-14 06:58] LABS: ALT 33 U/L (14-59); AST 18 U/L (15-37); Albumin 2.7 g/dL (3.4-5.0); Alkaline Phosphatase 117 U/L (46-116); Anion Gap 10.6 mmol/L (3-11); BUN 12 mg/dL (7-18); Bilirubin, Total 0.21 mg/dL (0.2-1.0); C-Reactive Protein 3.16 mg/dL (<or=0.5); CO2 29.4 mmol/L (21.0-32.0); CREATININE 0.7 mg/dL (0.55-1.02); Calcium 9.3 mg/dL (8.5-10.1); Chloride 104 mmol/L (98-107); Estimated GFR 105.95 (mL/min/1.73m2); Glucose 103 mg/dL (74-106); Magnesium 1.7 mg/dL (1.8-2.4); Potassium 3.5 mmol/L (3.5-5.1); Sodium 144 mmol/L (136-145); Total Protein 7.5 g/dL (6.4-8.2)
[2024-02-14 07:19] VITALS: BP 157/92; PULSE 91; RESP 20; TEMP 36.9; O2SAT 99
[2024-02-14] MEDS: DULoxetine 30 MG CAP 90 MG PO (07:59)
[2024-02-14] MEDS: Prazosin 1 MG CAP PO (08:00)
[2024-02-14] MEDS: Acetaminophen 500 MG TAB 1000 MG PO ×2 (08:00→13:57)
[2024-02-14] MEDS: Ciprofloxacin 250 MG TAB PO ×2 (08:00→17:05)
[2024-02-14] MEDS: Ciprofloxacin 500 MG TAB PO ×2 (08:01→17:05)
[2024-02-14] MEDS: Protein Nutritional Supplement 16 GM 1 OUNCE PACKET PO ×2 (08:01→13:57)
[2024-02-14] MEDS: Lactobacillus Acidophilus CAP 1 CAP PO ×2 (08:01→13:57)
[2024-02-14] MEDS: rifAMPin 300 MG CAP PO (08:01)
[2024-02-14] MEDS: Aspirin E.C. 81 MG TABEC PO (08:01)
[2024-02-14] MEDS: Magnesium Oxide 400 MG TAB PO (08:01)
[2024-02-14] MEDS: Methadone Liquid 10 MG/ML 69 MG PO (08:02)
--- NOTE | 2024-02-14 10:12 | PT.INTREAT ---
PT Notes Visit Reasons: Infected right TKA Inpatient Physical Therapy Treatment Note [facility] Date: 02/14/24 PRECAUTIONS: Contact MRSA SUBJECTIVE: Pt reports that she was very sore from yesterday. She states that she thinks it was from the stretching. She reports that she did not sleep well at all last night because of it. She states that she spoke to Dr. Duvall and he said he would like to focus more on getting the infection out right now than the ROM. OBJECTIVE: Therapeutic Activities ([id number][]): Direct one-on-one instruction in dynamic activities to improve functional performance. ? BED MOBILITY/TRANSFERS? Sit-stand: I? Stand-sit: I ? Provided skilled cues and instruction on performance and technique throughout. Gait Training ([id number][]): Direct one-on-one instruction and skilled instruction in: ? Therapeutic Exercises ([id number][]): Direct one-on-one instruction in therapeutic exercises to develop strength, endurance, range of motion and flexibility. ? Exercises ? Standing hold onto the walker hip abd x 10, ext x 10, SSH x 10, HR x 10, and reviewed mini squats. Ambulation ? Assistive Device: FWW? Weight bearing: Full Assist: SBA? Distance:? 250ft? ASSESSMENT:? Pt was very willing to complete her PT as long as we did not work on ROM today. Pt was very safe with transfers and ambulation. PLAN: Cont as per Pt POC. TREATMENT CODE/TIME: 9:50-10:10 (20) TE
[2024-02-14] MEDS: Methylphenidate 10 MG TAB 20 MG PO ×2 (10:49→15:27)
[2024-02-14 15:19] VITALS: BP 127/79; PULSE 93; RESP 20; TEMP 37.1; O2SAT 98
--- NOTE | 2024-02-14 16:48 | CHAPLAIN ---
Rand said she is being discharged and home health will be teaching her about administering her antibiotics at home, herself. She is very much looking forward to going home and spending time with fiance and grandchildren. She was here for surgery on her knee to replace and infected knee replacement. She's been her a little over a week.
--- NOTE | 2024-02-14 18:11 | CMDISCH_ITS ---
Date of service: 02/14/24 Time of Service: 18:11 LACE Index Scoring Tool Questions: Length of Stay (in days): 7 - 13 Was the patient admitted via the E.D.?: Yes E.D. Visits: 0 Answers: Total Score: 8 Risk of Readmission: Low Risk Care Management Discharge Plan Reason for Hospitalization: Infected R TKA Discharge Plan: Rand returned home today with new orders for HH RN through [facility] to support home IV antibiotic therapy. CM coordinated home IV abx therapy through [facility]; there was no copay, and the medication will be delivered tomorrow morning, prior to her next dose. She had her abx dose for today prior to discharge, and will begin home therapy tomorrow around noon. She will be driven home via private vehicle by her Jono toribio. She will follow up with Ortho, her PCP, and her discharge plan of care. She was happy to be going home. Patient/Family Education Needs: Review discharge instructions and limitations, discussion of self care needs including ask me three. Services Needed at Discharge: Home Health Care Services (O/E VICKY, RN) and Infusion Therapy ([place]) SDOH Health Related Social Needs: Health related social needs transpo insecurity Health related social needs details Pt is having diffi culty w/ transportation and insurance issues Health related social needs: transportation insecurity(Z59.82) Health related social needs details: Pt is having difficulty w/ transportation and insurance issues
== END 2024-02-14 17:50 | disposition home health service (06) | DRG 486 ==
PROVIDERS: Student in an Organized Health Care Education/Training Program; Admitting Provider Student in an Organized Health Care Education/Training Program; PCP Internal Medicine; Visit Provider Student in an Organized Health Care Education/Training Program
PROC: 0SPC09Z Removal of Liner from Right Knee Joint, Open Approach (ICD-10-PCS; CPT 27486; principal; 2024-02-07 07:30)
DX: T84.53XA Infection and inflammatory reaction due to internal right knee prosthesis, initial encounter (principal); F11.20 Opioid dependence, uncomplicated; K52.1 Toxic gastroenteritis and colitis; D64.9 Anemia, unspecified; Z59.89 Other problems related to housing and economic circumstances; T36.95XA Adverse effect of unspecified systemic antibiotic, initial encounter; F41.1 Generalized anxiety disorder; B95.62 Methicillin resistant Staphylococcus aureus infection as the cause of diseases classified elsewhere; K21.9 Gastro-esophageal reflux disease without esophagitis; I10 Essential (primary) hypertension; F98.8 Other specified behavioral and emotional disorders with onset usually occurring in childhood and adolescence; E78.5 Hyperlipidemia, unspecified; G43.909 Migraine, unspecified, not intractable, without status migrainosus; F32.A Depression, unspecified; F17.210 Nicotine dependence, cigarettes, uncomplicated; Z96.653 Presence of artificial knee joint, bilateral; B96.5 Pseudomonas (aeruginosa) (mallei) (pseudomallei) as the cause of diseases classified elsewhere; R25.2 Cramp and spasm; F43.0 Acute stress reaction
CPT/HCPCS: 27486; 27335; 36573; 36410; 36415; 71045; 80048; 80053; 85027; 85652; 86850; 86900; 86901; 86920; 87040; 87077; 87493; 97110; 97162; 97530; J1650; 80202; 83036; 83735; 85014; 85018; 85025; 85610; 86140; 87070; 87075; 87186; 87205; 93005; 93010; C1776; J0131; J0690; J0692; J0696; J0878; J1100; J1170; J1171; J2250; J2405; J2704; J3010; J3372; J3475; P9016

== ENCOUNTER 2024-03-01 13:49 | Outpatient (REF) | payer MEDICAID, SELFPAY ==
[2024-03-01 10:52] LABS: C-Reactive Protein 1.77 mg/dL (<or=0.5)
[2024-03-01 10:58] LABS: Creatine Kinase 2407 U/L (26-192)
--- OUTSIDE RECORDS SUMMARY | 2024-03-01 13:54 | XMS_ITS | Encounter Summary ---
Author Organization [facility] Address [address] [place] [address] Care Team Providers Care Money Position Officer Name Role Phone Nghia Ayala MD Primary Care Provider [phone] Encounter Details Date Type Department Care Team (Late st Contact Info) Description 12/09/2020 Lab Requisition [facility] Pathology & Laboratory Medicine - [address] [address] Outr Resulting Lab, Provider Social History Tobacco Use Types Packs/Day Years Used Date Smoking Tobacco: Never Assessed Interpersonal Safety Answer Date Record ed Physically Hurt Never 03/23/2020 Verbally Threaten Not on file 03/23/2020 Sex and Gender Information Value Date Recorded Sex Assigned at Not on file Gender Identity Not on file Sexual Orientation Not on file documented as of this encounter Plan of Treatment Not on file documented as of this encounter Procedures Procedure Name Priority Date/Time Associated Diagnosis Comments ZZCOVID-19 TEST [facility] PCR Today 12/09/2020 9:00 EDT COVID-19 TESTING Routine 12/09/2020 9:00 EDT documented in this encounter Results * COVID-19 TEST [facility] PCR (12/09/2020 9:00 EDT) Swab ENTIRE NASOPHARYNX / Unknown 12/09/2020 9:00 EDT 12/09/2020 21:26 EDT Provider Outr Resulting Lab MICROBIOLOGY - GENERAL ORDERABLES [facility] [address] [place] [address] * COVID-19 TESTING (12/09/2020 9:00 EDT) COVID-19 rt-PCR Result Negative Negative 12/10/2020 15:44 EDT [facility] Comment: This test has not been FDA cleared or approved. This test has been authorized by FDA under an EUA for use by authorized laboratories. This test has been authorized only for detection of nucleic acid from 2019-nCoV, not for any other viruses or pathogens. This test is only authorized for the duration of the declaration that circumstances exist justifying the authorization of emergency use of in vitro diagnostic tests for detection and/or diagnosis of 2019-nCoV under section 564(b)(1) of Act, 21 U.S.C ?? 360bbb-3(b) (1), unless the authorization is terminated or revoked sooner. Negative results do not preclude 2019-nCoV infection and should not be used as the sole basis for treatment or other patient management decisions. Negative results must be combined with clinical observations, patient history, and epidemiological information. Testing was performed using the bernadette SARS-CoV-2 assay ([employer] on the Bernadette 6800 System Performing Lab Bernadette [address] [facility] 12/10/2020 15:44 EDT [facility] Swab 12/09/2020 9:00 EDT 12/09/2020 21:26 EDT Provider Outr Resulting Lab MICROBIOLOGY - GENERAL ORDERABLES [facility] [address] [place] [address] documented in this encounter Visit Diagnoses Not on filedocumented in this encounter Care Teams Money Position Officer Relationship Specialty Start Date End Date Nghia Ayala MD [address] [place] [address] PCP - General 07/01/15 documented as of this encounter
--- OUTSIDE RECORDS SUMMARY | 2024-03-01 13:54 | XMS_ITS | Encounter Summary ---
Author Organization [facility] Address [address] [place] [address] Care Team Providers Care It Security Consulting Director Name Role Phone Unavailable Primary Care Provider Unavailabl e Encounter Details Date Type Department Care Team (Late st Contact Info) Description 08/26/2000 Results Only [facility] - Maple conversion [address] [place] [address] Param rFias MD Social History Tobacco Use Types Packs/Day Years Used Date Smoking Tobacco: Never Assessed Sex and Gender Information Value Date Recorded Sex Assigned at Not on file Gender Identity Not on file Sexual Orientation Not on file documented as of this encounter Plan of Treatment Not on file documented as of this encounter Procedures Procedure Name Priority Date/Time Associated Diagnosis Comments CYTOPATHOLOGY Routine 08/26/2000 0:00 EST documented in this encounter Results * CYTOPATHOLOGY (08/26/2000 0:00 EST) Pathology Report: CYTOPATHOLOGY REPORT Reports generated via electronic interface contain original data; however they are lacking the format of the original report. Caution should be taken when reading/interpreti ng unformatted reports. Name: ? RAND DIAZ ? Accession #: ? [id number] : ? 1975 (Age: 25) ??F ?Collect Date: ? 08/26/2000 Location: ? [facility] ? Receive Date: ? 08/29/2000 Provider: ?PARAM FRIAS MD Copy to: ? Specimen/Source: ?Conventional Pap Test, Cervix/Endocervix Last Menstrual Period: ? 06/28/00 Hormonal/Contracep tive Status: ? Yes Previous Gynecologic Pathology: ? ASC-US: Other: ? Additional clinical information: Paps nl since. ? SPECIMEN ADEQUACY ? Satisfactory for evaluation but limited by obscuring inflammation. GENERAL CATEGORIZATION ? Within Normal Limits ? Document reviewed and electronically signed by: ? PERCY Trujillo(ASCP) ? Report Date: ??08/30/2000 12:39 End of Report [facility] 08/26/2000 08/29/2000 Param Frias MD PATHOLOGY ORDERABLES [facility] [address] [place] [address] documented in this encounter Visit Diagnoses Not on filedocumented in this encounter
--- OUTSIDE RECORDS SUMMARY | 2024-03-01 13:54 | XMS_ITS | Continuity of Care Document ---
Author Organization [facility] Address [address] [place] [address] [facility] - 02/20/24 [facility] [address] [place] [address] Discharge Disposition: Home or Self Care Attending Physician: Zac Duvall Jr, MD Admitting Physician: Zac Duvall Jr, MD Referring Physician: Zac Duvall Jr, MD Allergies, Adverse Reactions, Alerts Substance Reaction Severity Status aspirin Unknown Active thiazide diuretics Unknown Active sulfa drugs Unknown Active NSAIDs Unknown Active Medications Cymbalta 0 Refill(s) Start Date: 07/09/23 Status: Ordered gabapentin 300 mg oral capsule 0 Refill(s) Start Date: 07/09/23 Status: Ordered lisinopril 10 mg oral tablet 0 Refill(s) Start Date: 07/09/23 Status: Ordered methadone 76 mg =, 0 Refill(s) Start Date: 07/09/23 Status: Ordered methylphenidate 0 Refill(s) Start Date: 07/09/23 Status: Ordered Results Laboratory List Name Date Automated Diff 02/20/24 Basic Metabolic Panel 02/20/24 C-Reactive Protein 02/20/24 CBC w/ Diff 02/20/24 Creatine Kinase 02/20/24 Magnesium Level 02/20/24 Most recent to oldest [Reference Range]: 1 WBC [5.0-10.0 x10^3/mcL] 13.0 x10^3/mcL *HI* (02/20/24 6:00 PM) RBC [4.1-5.3 x10^6/mcL] 3.7 x10^6/mcL *LOW* (02/20/24 6:00 PM) Neutro Auto [40.0-75.0 %] 66.6 % (02/20/24 6:00 PM) Lymph Auto [20.0-50.0 %] 17.2 % *LOW* (02/20/24 6:00 PM) [place] Auto [2.0-15.0 %] 12.6 % (02/20/24 6:00 PM) Basophil Auto [0.0-1.0 %] 0.7 % (02/20/24 6:00 PM) BUN [7-18 mg/dL] 11 mg/dL (02/20/24 6:00 PM) Glucose Level [74-106 mg/dL] 117 mg/dL *HI* (02/20/24 6:00 PM) Potassium Level [3.5-5.1 mmol/L] 3.8 mmo l/L (02/20/24 6:00 PM) MCV [80.0-96.0 fL] 90.6 fL (02/20/24 6:00 PM) CRP [<=10.0 mg/L] 34.6 mg/L *HI* (02/20/24 6:00 PM) MCHC [31.0-35.0 g/dL] 31.5 g/dL (02/20/24 6:00 PM) Sodium Level [136-145 mmol/L] 138 mmol/L (02/20/24 6:00 PM) Hct [37.0-47.0 %] 33.6 % *LOW* (02/20/24 6:00 PM) Calcium Level [8.5-10.1 mg/dL] 9.3 mg/dL (02/20/24 6:00 PM) MCH [26.0-32.0 pg] 28.6 pg (02/20/24 6:00 PM) Magnesium Level [1.8-2.4 mg/dL] 2.0 mg/d L (02/20/24 6:00 PM) Neutro Absolute 8.7 x10^3/mcL *NA* (02/20/24 6:00 PM) Hgb [12.0-16.0 g/dL] 10.6 g/dL *LOW* (02/20/24 6:00 PM) Platelets [130-450 x10^3/mcL] 639 x10^3/ mcL *HI* (02/20/24 6:00 PM) CO2 [21-32 mmol/L] 29 mmol/L (02/20/24 6:00 PM) eGFR Non-AA [>=60] 85 (02/20/24 6:00 PM) eGFR AA [>=60] 85 (02/20/24 6:00 PM) Chloride Level [98-107 mmol/L] 100 mmol/ L (02/20/24 6:00 PM) RDW-CV [11.5-14.5 %] 13.8 % (02/20/24 6:00 PM) Imm Gran Auto [0.0-0.9 %] 1.1 % *HI* (02/20/24 6:00 PM) Slide Review Not Indicated (02/20/24 6:00 PM) Creatinine Level [0.55-1.02 mg/dL] 0.84 mg/dL (02/20/24 6:00 PM) Eos, Auto [1.0-6.0 %] 1.8 % (02/20/24 6:00 PM) CK [26-192 unit/L] 121 unit/L (02/20/24 6:00 PM) Social History Social History Type Response Tobacco Current everyday tob acco user Tobacco Use:. 1 PPD per day. Sex Female Patient Care team information Care Team Personnel Name: Zac Duvall Jr, MD Position: No Access Member Role: Informed Provider Address: Address: [facility] [address] [place] [phone]- Care Team Related Persons Name: FARHANA HALL Address: Home [address] [place] [phone]
--- OUTSIDE RECORDS SUMMARY | 2024-03-01 13:54 | XMS_ITS | Encounter Summary ---
Author Organization [facility] Address [address] [place] [address] Care Team Providers Care Salt Plant Operator Name Role Phone Unavailable Primary Care Provider Unavailabl e Encounter Details Date Type Department Care Team (Late st Contact Info) Description 10/08/2004 Results Only [facility] - Maple conversion [address] [place] [address] Scarlett Dao APRN Social History Tobacco Use Types Packs/Day Years Used Date Smoking Tobacco: Never Assessed Sex and Gender Information Value Date Recorded Sex Assigned at Not on file Gender Identity Not on file Sexual Orientation Not on file documented as of this encounter Plan of Treatment Not on file documented as of this encounter Procedures Procedure Name Priority Date/Time Associated Diagnosis Comments N. GONORRHOEAE AMPLIFIED PROBE Routine 10/08/2004 20:16 EST ZZCHLAMYDIA TRACHOMATIS AMPLIFIED PROBE Routine 10/08/2004 20:16 EST documented in this encounter Results * N. GONORRHOEAE AMPLIFIED PROBE (10/08/2004 20:16 EST) Result No Neisseria gonorrhoeae DNA detected by hosiery looper mediated amplification. [facility] Report Status Final [id number] [facility] Specimen Description Cervix [facility] 10/08/2004 20:1 6 EST 10/09/2004 20:16 EST Scarlett Dao APRN MICROBIOLOGY - GENERAL ORDERABLES [facility] [address] [place] [address] * CHLAMYDIA TRACHOMATIS AMPLIFIED PROBE (10/08/2004 20:16 EST) Specimen Description Cervix [facility] Result No Chlamydia trachomatis DNA detected by hosiery looper mediated amplification. [facility] Report Status Final [id number] [facility] 10/08/2004 20:1 6 EST 10/09/2004 20:16 EST Scarlett Dao APRN MICROBIOLOGY - GENERAL ORDERABLES [facility] [address] [place] [address] documented in this encounter Visit Diagnoses Not on filedocumented in this encounter
--- OUTSIDE RECORDS SUMMARY | 2024-03-01 13:54 | XMS_ITS | Encounter Summary ---
Author Organization [facility] Address [address] [place] [address] Care Team Providers Care Feeder Operator Name Role Phone Nghia Ayala MD Primary Care Provider [phone] Encounter Details Date Type Department Care Team (Late st Contact Info) Description 12/25/2019 Lab Requisition [facility] Pathology & Laboratory Medicine - [address] [address] Jay Diamond MD [address] [place] [phone] Encounter for other general examination Social History Tobacco Use Types Packs/Day Years Used Date Smoking Tobacco: Never Assessed Sex and Gender Information Value Date Recorded Sex Assigned at Not on file Gender Identity Not on file Sexual Orientation Not on file documented as of this encounter Plan of Treatment Not on file documented as of this encounter Procedures Procedure Name Priority Date/Time Associated Diagnosis Comments SURGICAL PATHOLOGY Today 12/25/2019 11 :43 EDT documented in this encounter Results * SURGICAL PATHOLOGY (12/25/2019 11:43 EDT) Final Diagnosis A. GALLBLADDER, CHOLECYSTECTOMY: - Chronic cholecystitis with cholelithiasis. 12/27/2019 16:28 EDT [facility] at 1628 Attestation By the signature below, the attending physician certifies that they have 1) personally conducted a gross and/or microscopic examination of the described specimen(s), and/or personally interpreted the results of laboratory testing of the described specimen(s), and 2) personally rendered or confirmed the above diagnosis. 12/27/2019 16:28 T [facility] at 1628 Clinical History Cholelithiasis 12/27/2019 16:28 [facility] Gross Description A. Received in formalin labelled with proper patient identification (initials B, S) and gallbladder is an intact gallbladder with an attached segment of cystic duct (6.2 x 3.0 x 2.7 cm). A cystic duct lymph node is not present. The serosa is wrinkled, pink-herrera and dull. The mucosa is velvety to denuded, yellow green and the wall is 0.2 cm in thickness. The cystic duct lumen is patent and measures 0.3 cm in diameter. The cystic duct margin is inked blue. Two ovoid, granular dark green calculi are present (1.4 cm and 1.9 cm in greatest dimension). Two telephone claims representative sections and the en face cystic duct margin are submitted in A1. Aster Alvaro 12/26/2019 9:05 12/27/2019 16:28 EDT [facility] Scanned Images 12/27/2019 16:28 T [facility] Tissue ENTIRE GALLBLADDER / Unknown 12/25/2019 11:43 EDT 12/26/2019 8:17 EDT Jay Diamond MD PATHOLOGY ORDER EVETTE [facility] [address] [place] [address] documented in this encounter Visit Diagnoses Diagnosis Encounter for other general examination documented in this encounter Care Teams Feeder Operator Relationship Specialty Start Date End Date Nghia Ayala MD [address] [place] [address] PCP - General 07/01/15 documented as of this encounter
--- OUTSIDE RECORDS SUMMARY | 2024-03-01 13:54 | XMS_ITS | Encounter Summary ---
Author Organization [facility] Address [address] [place] [address] Care Team Providers Care Hearing Aid Mechanic Name Role Phone Nghia Ayala MD Primary Care Provider [phone] Encounter Details Date Type Department Care Team (Late st Contact Info) Description 11/01/2023 Lab Requisition [facility] Pathology & Laboratory Medicine - [address] [address] Outr Resulting Lab, Provider Social History Tobacco [...] Procedure Name Priority Date/Time Associated Diagnosis Comments HIV 1/2 ANTIGEN AND ANTIBODY, 4TH GENERATION Routine 11/01/2023 9:04 EDT T3, TOTAL Routine 11/01/2023 9:04 EDT documented in this encounter Results * (ABNORMAL) T3, TOTAL (11/01/2023 9:04 EDT) T3, Total 171(H) 97 - 169 ng/dL 11/01/2023 22:32 EDT [facility] Blood VENOUS BLOOD / Unknown 11/01/2023 9:04 EDT 11/01/2023 21:46 EDT Provider Outr Resulting Lab CHEMISTRY & BLOOD GAS ORDERABLES Performing Organization Address [facility] Co de Phone Number [facility] [address] [place], [place] [address] * HIV 1/2 ANTIGEN AND ANTIBODY, 4TH GENERATION (11/01/2023 9:04 EDT) [facility] Signature HIV 1 and 2 Antibody/p24 Antigen, 4th Generation Negative Negative 11/02/2023 10:21 EDT [facility] Comment:If acute HIV-1 infec tion is suspected in a high risk patient, submit plasma specimen for HIV-1 RNA quantitation test. Blood VENOUS BLOOD / Unknown 11/01/2023 9:04 EDT 11/01/2023 21:46 EDT Narrative [facility] - 11/02/2023 10:21 EDT Fourth Generation assay performed on the Siemens Centaur XPT. Provider Outr Resulting Lab IMMUNOLOGY A ND SEROLOGY ORDERABLES Performing Organization Address [facility] Co de Phone Number [facility] [address] [place] [phone] documented in this encounter Visit Diagnoses Not on filedocumented in this encounter Care Teams Hearing Aid Mechanic Relationship Specialty Start Date End Date Nghia Ayala MD [address] [place] [address] PCP - General 07/01/15 documented as of this encounter
--- OUTSIDE RECORDS SUMMARY | 2024-03-01 13:54 | XMS_ITS | Encounter Summary ---
Author Organization [facility] Address [address] [place] [address] Care Team Providers Care Lead Process Engineer Name Role Phone Nghia Ayala MD Primary Care Provider [phone] Encounter Details Date Type Department Care Team (Late st Contact Info) Description 11/01/2023 Lab Requisition [facility] Pathology & Laboratory Medicine - [address] [address] Outr Resulting Lab, Provider Social History Tobacco [...] Procedure Name Priority Date/Time Associated Diagnosis Comments XYLAZINE CONFIRMATION, U Routine 11/01/2023 9:04 EDT METHADONE AND METABOLITE CONFIRMATION PANEL Routine 11/01/2023 9:04 EDT BUPRENORPHINE AND METABOLITE CONFIRMATION PANEL Routine 11/01/2023 9:04 EDT FENTANYL AND METABOLITE CONFIRMATION PANEL Routine 11/01/2023 9:04 EDT documented in this encounter Results * XYLAZINE CONFIRMATION, U (11/01/2023 9:04 EDT) Xylazine Confirmation Negative <50 ng/mL 11/04/2023 9:33 EDT [facility] Urine URINE / Unknown 11/01/2023 9 :04 EDT 11/01/2023 21:46 EDT Narrative [facility] - 11/04/2023 9:33 EDT [facility] performed by: [facility] [address] [place] [address], [place] [address] Draw Press Operator: Kory Gandhi MD; CLIA # [id number] Provider Outr Resulting Lab GEN LAB UNIT COLLECT ORDERABLES [facility] [address] [place] [address] * BUPRENORPHINE AND METABOLITE CONFIRMATION PANEL (11/01/2023 9:04 EDT) Pathologist [facility] Buprenorphine Confirmation Negative <10 ng/mL 11/04/2023 9:33 EDT [facility] Norbuprenorphine Confirmation Negative <10 ng/mL 11/04/2023 9:33 EDT [facility] Naloxone Confirmation Negative <10 ng/mL 11/04/2023 9:33 EDT [facility] Urine URINE / Unknown 11/01/2023 9 :04 EDT 11/01/2023 21:46 EDT Narrative [facility] - 11/04/2023 9:33 EDT Testing performed by: [facility] [address] [place] [address], [place] [address] Draw Press Operator: Kory Gandhi MD; CLIA # [id number] Provider Outr Resulting Lab GEN LAB UNIT COLLECT ORDERABLES Performing Organization Address City/[facility]/ZIP Co de Phone Number [facility] [address] [place] [address] * (ABNORMAL) METHADONE AND METABOLITE CONFIRMATION PANEL (11/01/2023 9:04 EDT) Pathologist [facility] Methadone Confirmation >2000(A) <100 ng/mL 11/04/2023 9:33 EDT [facility] EDDP Confirmation >2000(A) <100 ng/mL 11/04/2023 9:33 EDT [facility] Urine URINE / Unknown 11/01/2023 9 :04 EDT 11/01/2023 21:46 EDT Narrative [facility] - 11/04/2023 9:33 EDT Testing performed by: [facility] [address] [place] [address] Draw Press Operator: Kory Gandhi MD; CLIA # [id number] Provider Outr Resulting Lab GEN LAB UNIT COLLECT ORDERABLES Performing Organization Address City/[facility]/ZIP Co de Phone Number [facility] [address] [place] [address] * FENTANYL AND METABOLITE CONFIRMATION PANEL (11/01/2023 9:04 EDT) Fentanyl Confirmation Negative <2 ng/mL 11/04/2023 9:33 EDT [facility] Norfentanyl Confirmation Negative <10 ng/mL 11/04/2023 9:33 EDT [facility] Urine URINE / Unknown 11/01/2023 9 :04 EDT 11/01/2023 21:46 EDT Narrative [facility] - 11/04/2023 9:33 EDT Testing performed by: [facility] [address] [place] [address] Draw Press Operator: Kory Gandhi MD; CLIA # [id number] Provider Outr Resulting Lab GEN LAB UNIT COLLECT ORDERABLES Performing Organization Address City/[facility]/ZIP Co de Phone Number [facility] [address] [place] [address] documented in this encounter Visit Diagnoses Not on filedocumented in this encounter Care Teams Lead Process Engineer Relationship Specialty Start Date End Date Nghia Ayala MD [address] [place] [address] PCP - General 07/01/15 documented as of this encounter
--- OUTSIDE RECORDS SUMMARY | 2024-03-01 13:54 | XMS_ITS | Continuity of Care Document ---
Author Organization [facility] Address [address] [place] [address] [facility] 02/[facility] - 02/27/24 [facility] [address] [place] [address] Discharge Disposition: Home or Self Care Attending Physician: Zac Duvall Jr, MD Admitting Physician: Zac Duvall Jr, MD Referring Physician: Zac Duvall Jr, MD Allergies, Adverse Reactions, Alerts Substance Reaction Severity Status aspirin Unknown Active thiazide diuretics Unknown Active sulfa drugs Unknown Active NSAIDs Unknown Active Assessment and Plan Future Appointments Medications Cymbalta 0 Refill(s) Start Date: 07/09/23 Status: Ordered gabapentin 300 mg oral capsule 0 Refill(s) Start Date: 07/09/23 Status: Ordered lisinopril 10 mg oral tablet 0 Refill(s) Start Date: 07/09/23 Status: Ordered methadone 76 mg =, 0 Refill(s) Start Date: 07/09/23 Status: Ordered methylphenidate 0 Refill(s) Start Date: 07/09/23 Status: Ordered Results Laboratory List Name Date Automated Diff 02/27/24 Basic Metabolic Panel 02/27/24 C-Reactive Protein High Sensitivity CBC w/ Diff 02/27/24 Creatine Kinase 02/27/24 Magnesium Level 02/27/24 Most recent to oldest [Reference Range]: 1 WBC [5.0-10.0 x10^3/mcL] 12.4 x10^3/mcL *HI* (02/27/24 11:47 AM) RBC [4.1-5.3 x10^6/mcL] 3.9 x10^6/mcL *LOW* (02/27/2447 AM) Neutro Auto [40.0-75.0 %] 59.0 % (02/27/24:47 AM) Lymph Auto [20.0-50.0 %] 29.8 % (02/27/24:47 AM) [place] Auto [2.0-15.0 %] 6.2 % (02/27/24:47 AM) Basophil Auto [0.0-1.0 %] 0.9 % (02/27/24:47 AM) BUN [7-18 mg/dL] 12 mg/dL (02/27/24:47 AM) Glucose Level [74-106 mg/dL] 143 mg/dL *HI* (02/27/24 AM) Potassium Level [3.5-5.1 mmol/L] 3.6 mmo l/L (02/27/24:47 AM) MCV [80.0-96.0 fL] 90.7 fL (02/27/24 AM) MCHC [31.0-35.0 g/dL] 31.4 g/dL (02/27/24:47 AM) Sodium Level [136-145 mmol/L] 140 mmol/L (02/27/24:47 AM) Hct [37.0-47.0 %] 35.0 % *LOW* (02/27/24 AM) Calcium Level [8.5-10.1 mg/dL] 8.8 mg/dL (02/27/24:47 AM) MCH [26.0-32.0 pg] 28.5 pg (02/27/24:47 AM) Magnesium Level [1.8-2.4 mg/dL] 1.8 mg/d L (02/27/24:47 AM) Neutro Absolute 7.3 x10^3/mcL *NA* (02/27/2447 AM) Hgb [12.0-16.0 g/dL] 11.0 g/dL *LOW* (02/27/24:47 AM) Platelets [130-450 x10^3/mcL] 664 x10^3/ mcL *HI* (02/27/24 11:47 AM) CO2 [21-32 mmol/L] 25 mmol/L (02/27/24 11:47 AM) eGFR Non-AA [>=60] 70 (02/27/24 11:47 AM) eGFR AA [>=60] 70 (02/27/24 11:47 AM) Chloride Level [98-107 mmol/L] 102 mmol/ L (02/27/24 11:47 AM) RDW-CV [11.5-14.5 %] 13.8 % (02/27/24 11:47 AM) Imm Gran Auto [0.0-0.9 %] 1.1 % *HI* (02/27/24 11:47 AM) CRP High Sens [0.00-3.00 mg/L] 23.05 mg/ L 1 *HI* (02/27/24 11:47 AM) Slide Review Not Indicated (02/27/24 11:47 AM) Creatinine Level [0.55-1.02 mg/dL] 0.99 mg/dL (02/27/24 11:47 AM) Eos, Auto [1.0-6.0 %] 3.0 % (02/27/24 11:47 AM) CK [26-192 unit/L] 1372 unit/L *HI* (02/27/24 11:47 AM) 1Interpretive Data: Risk Level Age/Sex Range Units Less Risk All <1.0 mg/L Average Risk All 1.0 - 3.0 mg/L High Risk All >3.0 mg/L *Indeterminate All >10.0 mg/L *May be an indication of inflammation or infection. Social History Social History Type Response Tobacco Current everyday tob acco user Tobacco Use:. 1 PPD per day. Sex Female Patient Care team information Care Team Personnel Name: Zac Duvall Jr, MD Position: No Access Member Role: Informed Provider Address: Address: [facility] [address] [place] [address]- Care Team Related Persons Name: FARHANA HALL Address: Home [address] [place] [address], [phone]
--- OUTSIDE RECORDS SUMMARY | 2024-03-01 13:54 | XMS_ITS | Referral Summary ---
Author Organization [facility] Address [address] [place] [address] Care Team Providers Care Technical Operations Manager Name Role Phone Nghia Ayala MD Primary Care Provider Social History Tobacco Use Types Packs/Day Years Used Date Smoking Tobacco: Never Assessed Interpersonal Safety Answer Date Record ed Physically Hurt Never 03/23/2020 Verbally Threaten Not on file 03/23/2020 Sex and Gender Information Value Date Recorded Sex Assigned at Not on file Gender Identity Not on file Sexual Orientation Not on file Plan of Treatment Not on file Care Teams Technical Operations Manager Relationship Specialty Start Date End Date Nghia Ayala MD [address] [place] [address] PCP - General 07/01/15
--- OUTSIDE RECORDS SUMMARY | 2024-03-01 13:54 | XMS_ITS | Encounter Summary ---
Author Organization [facility] Address [address] [place] [address] Care Team Providers Care Simulation Developer Name Role Phone Unavailable Primary Care Provider Unavailabl e Encounter Details Date Type Department Care Team (Late st Contact Info) Description 03/16/2002 Results Only [facility] - Maple conversion [address] [place] [address] Param Frias MD Social History Tobacco Use Types Packs/Day Years Used Date Smoking Tobacco: Never Assessed Sex and Gender Information Value Date Recorded Sex Assigned at Not on file Gender Identity Not on file Sexual Orientation Not on file documented as of this encounter Plan of Treatment Not on file documented as of this encounter Procedures Procedure Name Priority Date/Time Associated Diagnosis Comments CYTOPATHOLOGY Routine 03/16/2002 0:00 EDT documented in this encounter Results * CYTOPATHOLOGY (03/16/2002 0:00 EDT) Pathology Report: CYTOPATHOLOGY REPORT Reports generated via electronic interface contain original data; however they are lacking the format of the original report. Caution should be taken when reading/interpreti ng unformatted reports. Name: ? RAND DIAZ ? Accession #: ? [id number] : ? 1975 (Age: 27) ??F ?Collect Date: ? 03/16/2002 Location: ? [facility] ? Receive Date: ? 03/19/2002 Provider: ?PARAM FRIAS MD Copy to: ? Specimen/Source: ?ThinPrep Pap Test, Cervix/Endocervix Last Menstrual Period: ? 02/23/02 Hormonal/Contracep tive Status: ? Yes Previous Gynecologic Pathology: ? Yes: Atypia SARWAT: 05/22 Other: ? HPVA - HPV testing requested if ASC-US on the current ThinPrep Pap test. ? SPECIMEN ADEQUACY ? Satisfactory for Evaluation - transformation zone component present GENERAL CATEGORIZATION ? Negative for Intraepithelial Lesion or Malignancy ? Document reviewed and electronically signed by: ? PERCY Sarabia(ASCP) ? Report Date: ??03/23/2002 11:55 End of Report [facility] 03/16/2002 03/19/2002 Param Frias MD PATHOLOGY ORDERABLES [facility] [address] [place] [address] documented in this encounter Visit Diagnoses Not on filedocumented in this encounter
--- OUTSIDE RECORDS SUMMARY | 2024-03-01 13:54 | XMS_ITS | Encounter Summary ---
Author Organization [facility] Address [address] [place] [address] Care Team Providers Care Infant Babysitter Name Role Phone Nghia Ayala MD Primary Care Provider [phone] Encounter Details Date Type Department Care Team (Late st Contact Info) Description 08/25/2021 Lab Requisition [facility] Pathology & Laboratory Medicine - [address] [address] Outr Resulting Lab, Provider Social History Tobacco [...] Comments ZZCOVID-19 TEST [facility] PCR Today 08/24/2021 9:30 EST COVID-19 TESTING Routine 08/24/2021 9:30 EST documented in this encounter Results * COVID-19 TEST [facility] PCR (08/24/2021 9:30 EST) Swab 08/24/2021 9:30 EST 08/26/2021 1:22 EST Provider Outr Resulting Lab MICROBIOLOGY - GENERAL ORDERABLES [facility] [address] [place] [address] * COVID-19 TESTING (08/24/2021 9:30 EST) COVID-19 rt-PCR Result Negative Negative 08/26/2021 18:19 EST [facility] Comment: This test has [...] clinical observations, patient history, and epidemiological information. Performed on the ClearCycleher Fusion instrument Performing Lab [place] [facility] 08/26/2021 18:19 EST [facility] Swab 08/24/2021 9:30 EST 08/26/2021 1:22 EST Provider Outr Resulting Lab MICROBIOLOGY - GENERAL ORDERABLES [facility] [address] [place] [address] documented in this encounter Visit Diagnoses Not on filedocumented in this encounter Care Teams Infant Babysitter Relationship Specialty Start Date End Date Nghia Ayala MD [address] [place] [address] PCP - General 07/01/15 documented as of this encounter
--- OUTSIDE RECORDS SUMMARY | 2024-03-01 13:54 | XMS_ITS | Encounter Summary ---
Author Organization [facility] Address [address] [place] [address] Care Team Providers Care Engine Lathe Set Up Operator Tool Name Role Phone Nghia Ayala MD Primary Care Provider [phone] Encounter Details Date Type Department Care Team (Late st Contact Info) Description 05/09/2020 Lab Requisition [facility] Pathology & Laboratory Medicine - [address] [address] Outr Resulting Lab, Provider Social History Tobacco [...] Procedure Name Priority Date/Time Associated Diagnosis Comments DO NOT ORDER STANDALONE - BROAD COVID TEST Today 05/09/2020 10:14 EDT COVID-19 TESTING Routine 05/09/2020 10:1 4 EDT documented in this encounter Results * DO NOT ORDER STANDALONE - BROAD COVID TEST (05/09/2020 10:14 EDT) COVID-19 rt-PCR Result NEGATIVE Negative 05/10/2020 16:10 EDT [facility] Comment: 2019-novel Coronavirus (2019-nCoV) not detected by the qRT-PCR assay. Consider testing for other respiratory viruses or re-collecting for 2019-nCoV testing. Note: Optimum timing for peak viral levels during infections caused by 2019-nCoV have not been determined. Collection of multiple specimens from the same patient may be necessary to detect the virus. Limitations Positive results are indicative of active infection with SARS-CoV-2 but do not rule out bacterial infection or co-infection with other viruses. The agent detected may not be the definite cause of disease. In addition, detection of viral RNA may not indicate the presence of infectious virus or that SARS-CoV-2 is the causative agent for clinical symptoms. Negative results do not preclude SARS-CoV-2 infection and should not be used as the sole basis for patient management decisions. Negative results must be combined with clinical observations, patient history, and epidemiological information. False negative results may also occur if amplification inhibitors are present in the specimen or if inadequate numbers of organisms are present in the specimen. Optimum specimen types and timing for peak viral levels during infections caused by SARS-CoV-2 have not been fully determined. Collection of multiple specimens (types and time points) from the same patient may be necessary to detect the virus. The test was validated for use with upper respiratory specimens obtained via nasopharyngeal or oropharyngeal swabs in VTM, UTM, M4, M5, M6, saline, and MTM media. The performance of this test has not been established for other specimens. Specimens collected using other FDA recommended Specimen Collection Materials listed in the FDA COVID-19 [employer] communication (November 15, 2019) are processed with the caveat that they were not all validated for use with this test and the result must be interpreted in this context. Furthermore, a false negative results may occur if a specimen is improperly collected, transported or handled. If the virus mutates in the RT-PCR target region, SARS-CoV-2 may not be detected or may be detected less predictably. Inhibitors or other types of interference may produce a false negative result. An interference study evaluating the effect of common cold medications was not performed. This test is not FDA-cleared but its performance characteristics were established by our CLIA-certified, CAP-accredited, high complexity laboratory in accordance with CLIA regulations, [employer] [place] [employer] (CAP) guidelines (Nov 08, 2019), and FDA guidance (Oct 20, 2019). This test is only for use under the Food and Drug Administration's Emergency Use Authorization. Swab ENTIRE NASOPHARYNX / Unknown 05/09/2020 10:14 EDT 05/09/2020 16:13 EDT Provider Outr Resulting Lab MICROBIOLOGY - GENERAL ORDERABLES [facility] [place] * COVID-19 TESTING (05/09/2020 10:14 EDT) COVID-19 rt-PCR Result NEGATIVE Negative 05/10/2020 17:53 EDT [facility] Comment: 2019-novel Coronavirus (2019-nCoV) not detected by the qRT-PCR assay. Consider testing for other respiratory viruses or re-collecting for 2019-nCoV testing. Note: Optimum timing for peak viral levels during infections caused by 2019-nCoV have not been determined. Collection of multiple specimens from the same patient may be necessary to detect the virus. Limitations Positive results are indicative of active infection with SARS-CoV-2 but do not rule out bacterial infection or co-infection with other viruses. The agent detected may not be the definite cause of disease. In addition, detection of viral RNA may not indicate the presence of infectious virus or that SARS-CoV-2 is the causative agent for clinical symptoms. Negative results do not preclude SARS-CoV-2 infection and should not be used as the sole basis for patient management decisions. Negative results must be combined with clinical observations, patient history, and epidemiological information. False negative results may also occur if amplification inhibitors are present in the specimen or if inadequate numbers of organisms are present in the specimen. Optimum specimen types and timing for peak viral levels during infections caused by SARS-CoV-2 have not been fully determined. Collection of multiple specimens (types and time points) from the same patient may be necessary to detect the virus. The test was validated for use with upper respiratory specimens obtained via nasopharyngeal or oropharyngeal swabs in VTM, UTM, M4, M5, M6, saline, and MTM media. The performance of this test has not been established for other specimens. Specimens collected using other FDA recommended Specimen Collection Materials listed in the FDA COVID-19 [employer] communication (November 15, 2019) are processed with the caveat that they were not all validated for use with this test and the result must be interpreted in this context. Furthermore, a false negative results may occur if a specimen is improperly collected, transported or handled. If the virus mutates in the RT-PCR target region, SARS-CoV-2 may not be detected or may be detected less predictably. Inhibitors or other types of interference may produce a false negative result. An interference study evaluating the effect of common cold medications was not performed. This test is not FDA-cleared but its performance characteristics were established by our CLIA-certified, CAP-accredited, high complexity laboratory in accordance with CLIA regulations, [employer] [place] Path[employer] (CAP) guidelines (Nov 08, 2019), and FDA guidance (Oct 20, 2019). This test is only for use under the Food and Drug Administration's Emergency Use Authorization. Performing Lab [facility] 05/10/2020 17:53 EDT [facility] Swab 05/09/2020 10:1 4 EDT 05/09/2020 16:13 EDT Provider Outr Resulting Lab MICROBIOLOGY - GENERAL ORDERABLES [facility] [address] [place] [address] [facility] [place] documented in this encounter Visit Diagnoses Not on filedocumented in this encounter Care Teams Engine Lathe Set Up Operator Tool Relationship Specialty Start Date End Date Nghia Ayala MD [address] [place] [address] PCP - General 07/01/15 documented as of this encounter
--- OUTSIDE RECORDS SUMMARY | 2024-03-01 13:54 | XMS_ITS | Encounter Summary ---
Author Organization [facility] Address [address] [place] [address] Care Team Providers Care Dean Of Women Name Role Phone Unavailable Primary Care Provider Unavailabl e Encounter Details Date Type Department Care Team (Late st Contact Info) Description 05/24/2001 Results Only [facility] - [place] conversion [address] [place] [address] Param Frias MD Social History Tobacco Use [...] Priority Date/Time Associated Diagnosis Comments CYTOPATHOLOGY Routine 05/24/2001 0:00 EDT documented in this encounter Results * CYTOPATHOLOGY (05/24/2001 0:00 EDT) Pathology Report: CYTOPATHOLOGY REPORT Reports generated via electronic interface contain original data; however they are lacking the format of the original report. Caution should be taken when reading/interpreti ng unformatted reports. Name: ? RAND DIAZ ? Accession #: ? [id number] : ? 1975 (Age: 26) ??F ?Collect Date: ? 05/24/2001 Location: ? [facility] ? Receive Date: ? 05/26/2001 Provider: ?PARAM FRIAS MD Copy to: ? Specimen/Source: ?ThinPrep Pap Test, Cervix/Endocervix Last Menstrual Period: ? 1999 Menstrual/Pregnanc y Status: ? Post Previous Gynecologic Pathology: ? ASC-US: Other: ? Additional clinical information: Nl paps since ? SPECIMEN ADEQUACY ? Satisfactory for evaluation. GENERAL CATEGORIZATION ? Epithelial Cell Abnormality DESCRIPTIVE DIAGNOSIS ? Atypical squamous cells of undetermined significance (ASCUS), cannot rule out squamous intraepithelial lesion (SARWAT). RECOMMENDATION ? Recommend clinical correlation and further evaluation, as clinically indicated. ? Document reviewed and electronically signed by: ? ARUN ANAND MD ? Report Date: ??05/30/2001 15:36 End of Report [facility] 05/24/2001 05/26/2001 Param Frias MD PATHOLOGY ORDERABLES Performing Organization Address City/State/[facility] Co de Phone Number [facility] [address] [place] [address] documented in this encounter Visit Diagnoses Not on filedocumented in this encounter
--- OUTSIDE RECORDS SUMMARY | 2024-03-01 13:54 | XMS_ITS | Clinical Summary ---
Author Organization [facility] Address [address] [place] [address] Care Team Providers Care Nursing Manager Name Role Phone Nghia Ayala MD [...] Orientation Not on file Plan of Treatment Health Maintenance Due Date Last Done Comments Hepatitis C Screen 1975 Hepatitis B Vaccine (1 of 3 - 19+ 3-dose series) 01/20 COVID-19 Vaccine ( season) 2023 Care Teams Nursing Manager Relationship Specialty Start Date End Date Nghia Ayala MD [address] [place] [address] PCP - General 07/01/15
--- OUTSIDE RECORDS SUMMARY | 2024-03-01 13:54 | XMS_ITS | Encounter Summary ---
Author Organization [facility] Address [address] [place] [address] Care Team Providers Care Online Journalist Name Role Phone Unavailable Primary Care Provider Unavailabl e Encounter Details Date Type Department Care Team (Late st Contact Info) Description 11/06/2003 Results Only [facility] - Maple conversion [address] [place] [address] [place], [place], [address] [id number] Social History Tobacco Use Types Packs/Day Years Used Date Smoking Tobacco: Never Assessed Sex and Gender Information Value Date Recorded Sex Assigned at Not on file Gender Identity Not on file Sexual Orientation Not on file documented as of this encounter Plan of Treatment Not on file documented as of this encounter Procedures Procedure Name Priority Date/Time Associated Diagnosis Comments CYTOPATHOLOGY Routine 11/06/2003 0:00 EST documented in this encounter Results * CYTOPATHOLOGY (11/06/2003 0:00 EST) Pathology Report: CYTOPATHOLOGY REPORT Reports generated via electronic interface contain original data; however they are lacking the format of the original report. Caution should be taken when reading/interpreti ng unformatted reports. Name: ? RAND DIAZ ? Accession #: ? [id number] : ? 1975 (Age: 28) ??F ?Collect Date: ? 11/06/2003 Location: ? [facility] ? Receive Date: ? 11/08/2003 Provider: ?MILADIS Artemio MARYBETHJOSUEArtemio CNM Copy to: ? Specimen/Source: ?ThinPrep Pap Test, Cervix/Endocervix Last Menstrual Period: ? 08/13/04 Previous Gynecologic Pathology: ? ASC-US: SARWAT 05/22 Other: ? Additional clinical information: Pap of 02/20 WNL HPVA - HPV testing requested if ASC-US on the current ThinPrep Pap test. ? SPECIMEN ADEQUACY ? Satisfactory for Evaluation - transformation zone component present GENERAL CATEGORIZATION ? Negative for Intraepithelial Lesion or Malignancy ? Document reviewed and electronically signed by: ? Kaelyn Monreal, SCT(ASCP) ? Report Date: ??11/13/2003 13:45 End of Report [facility] 11/06/2003 11/08/2003 Miladis Ulloa Roge CNM PATHOLOGY ORDERABLES [facility] [address] [place] [address] documented in this encounter Visit Diagnoses Not on filedocumented in this encounter
== END 2024-03-01 13:50 | disposition home or self-care (01) ==
LOC: LBN 13:49
PROVIDERS: PCP Internal Medicine; Visit Provider Student in an Organized Health Care Education/Training Program
DX: T84.53XA Infection and inflammatory reaction due to internal right knee prosthesis, initial encounter (principal); Z96.651 Presence of right artificial knee joint
CPT/HCPCS: 82550; 86140